=== PATIENT | male | born 1960 | race Caucasian/White ===

== ENCOUNTER 2017-07-23 17:14 | Emergency (ER) | payer OTHER, SELFPAY | END 2017-07-23 21:12 | disposition home or self-care (01) | PROVIDERS: Emergency Provider Internal Medicine; Family Provider Internal Medicine; PCP Internal Medicine; Visit Provider Internal Medicine | DX: R07.81 Pleurodynia (principal) | CPT/HCPCS: 71100; 71101; 93005; 93010; 99284 ==

== ENCOUNTER 2017-08-13 12:33 | Emergency (ER) | payer OTHER, SELFPAY ==
[2017-08-13 12:39] VITALS: BP 130/68; PULSE 93; RESP 14; TEMP 36.3; O2SAT 99
--- NOTE | 2017-08-13 12:51 | DI.RAD.S_ITS ---
PROCEDURE: XR CHEST 1V INDICATIONS: chest pain TECHNIQUE: One view of the chest was acquired. COMPARISON: 07/23/2017. FINDINGS: Surgical changes and devices: None. Artifact again noted overlying the left costophrenic angle. Lungs and pleura: No pleural effusions or pneumothorax. Lungs are clear. Mediastinum: Mediastinal contours appear normal. Heart size is normal. Bones and chest wall: No suspicious bony lesions. Focal radiodensities secondary to healing fractures of the left eighth, ninth and 10th ribs posteriorly. Old fracture deformity right sixth posterior rib. Overlying soft tissues appear unremarkable. IMPRESSION: 1. No acute cardiopulmonary abnormality. 2. Bilateral rib fracture deformities. Dictated by: Dominic Wise M.D. on 08/13/2017 at 13:15 Approved by: Dominic Wise M.D. on 08/13/2017 at 13:18
--- NOTE | 2017-08-13 12:52 | DI.US.S_ITS ---
PROCEDURE: US ABDOMEN COMPLETE INDICATIONS: EPIGASTRIC PAIN TECHNIQUE: Real-time scanning was performed of the abdominal and retroperitoneal organs, with image documentation. COMPARISON: None. FINDINGS: Liver: Liver is normal in size and homogeneous in echotexture. Gallbladder: Gallbladder is clear with normal wall thickness. Biliary ducts: Intrahepatic bile ducts are non-dilated. Extrahepatic bile duct caliber measures 3.1 mm. Normal is 6-7 mm or less in diameter, or 10 mm or less post-cholecystectomy. Pancreas: Pancreas is obscured by bowel gas Spleen: Spleen is normal in size and homogeneous in echotexture. Kidneys: Kidneys are normal in size and echotexture. Right kidney measures 10.1 cm long; left kidney measures 12.3 cm long. No hydronephrosis or nephrolithiasis. No solid masses. Aorta: Visualized aorta is normal in caliber at less than 3 cm. Iliacs: Iliac vessels are obscured IVC: Intrahepatic inferior vena cava is patent. Miscellaneous: No free abdominal fluid. IMPRESSION: 1. No acute findings to explain abdomen pain. 2. Pancreas and iliac vessels are obscured by bowel gas Dictated by: Dominic Wise M.D. on 08/13/2017 at 14:02 Approved by: Dominic Wise M.D. on 08/13/2017 at 14:04
[2017-08-13 13:01] LABS: Add Manual Diff / Slide Review NO; Basophils Percent Auto 0.3 % (0-2); Eosinophils Percent Auto 0.2 % (2-4); Hematocrit 42.2 % (41-53); Hemoglobin 14.7 g/dL (13.5-17.5); Lymphocytes Percent Auto 9.6 % (25-40); Mean Corpuscular HGB Conc 34.8 % (30-36); Mean Corpuscular Hemoglobin 33.4 PG (26-34); Mean Corpuscular Volume 95.8 fL (80-100); Monocytes Percent Auto 3.1 % (3-14); Neutrophils Absolute Auto 12200 /uL (3000-5900); Neutrophils Percent Auto 86.8 % (50-75); Platelet Count 313 X10^3/uL (150-400); Red Cell Distribution Width 12.9 % (11.6-14.8)
[2017-08-13 13:06] LABS: Alanine Aminotransferase 41 IU/L (21-72); Albumin 4.8 g/dL (3.5-5.0); Albumin Globulin Ratio 1.5 (1.0-2.8); Alkaline Phosphatase 93 U/L (38-126); Aspartate Aminotransferase 49 IU/L (17-59); BUN Creatinine Ratio 37.1 (6-22); Calcium 9.4 mg/dL (8.4-10.2); Creatine Kinase 100 U/L (55-170); Estimated Glomerular Filt Rate > 60.0 mL/min (>60); Globulin 3.1 g/dL (1.7-4.1); Glucose 145 mg/dL (70-100); Lipase 71 U/L (23-300); Sodium 131 mmol/L (137-145); Total Protein 7.9 g/dL (6.3-8.2)
[2017-08-13 13:10] LABS: HEMOLYSIS 56 (0-50)
[2017-08-13 13:11] LABS: Potassium 4.6 mmol/L (3.4-5.1)
[2017-08-13] MEDS: ASPIRIN 81 MG TAB 324 MG PO (13:14)
[2017-08-13] MEDS: SODIUM CHLORIDE 0.9% 1,000 ML 150 ML IV (13:15)
[2017-08-13] MEDS: PANTOPRAZOLE 40 MG VIAL IV (13:18)
[2017-08-13] MEDS: MAG HYDROX/ALUMINUM/SIMETH SUS 20 ML, LIDOCAINE VISCOUS 2% 15 ML PO (13:18)
[2017-08-13 13:20] LABS: Troponin I < 0.012 ng/mL (0.01-0.034)
[2017-08-13 13:22] LABS: CKMB % Relative Index 1.7 % (1.5-5.0); Creatine Kinase MB 1.69 ng/mL (<2.37)
[2017-08-13 14:37] VITALS: BP 124/63; PULSE 84; RESP 17; O2SAT 99
[2017-08-13 15:41] LABS: Troponin I < 0.012 ng/mL (0.01-0.034)
--- NOTE | 2017-08-13 15:56 | ED_ITS ---
HPI - Chest Pain General Chief Complaint: Chest Pain Stated Complaint: CHEST PAIN Time Seen by Provider: 08/13/17 12:41 Source: patient and family Mode of arrival: ambulatory Limitations: no limitations History of Present Illness HPI narrative: Patient presents to the emergency department today with a chief complaint of a recurrence of epigastric pain, not unlike his history of dyspepsia. He states his pain started while eating and is made worse by food or drink. It radiates to his back. He denies associated symptoms such as dizziness, weakness or lightheadedness. He has had no nausea or vomiting. MD complaint: chest pain Onset (ago): hour(s) Duration: improved Onset: after eating Pain location: epigastric Severity: mild Pain radiation: back Relieving factors: nothing Exacerbating factors: eating Treatments prior to arrival chest pain: none Related Data Home Medications Medication Instructions Recorded Confirmed No Known Home Medications 08/13/17 08/13/17 Allergies Allergy/AdvReac Type Severity Reaction Status Date / Time morphine [MORPHINE] Allergy Severe iv caused Verified 08/13/17 12:41 red line Review of Systems Review of Systems All systems reviewed & are unremarkable except as noted in HPI and below Constitutional Denies chills, Denies fever(s), Denies lethargy and Denies weakness Eyes Denies change in vision, Denies eye discharge, Denies irritation and Denies loss of vision Cardiovascular Reports chest pain, Denies irregular heart rhythm, Denies lightheadedness, Denies palpitations, Denies dyspnea, Denies dyspnea on exertion and Denies orthopnea Respiratory Denies cough, Denies dyspnea, Denies dyspnea on exertion and Denies wheezing Gastrointestinal Gastrointestinal: Reports abdominal pain, Denies change in bowel habits, Denies diarrhea, Denies nausea and Denies vomiting Genitourinary Denies hematuria, Denies flank pain, Denies urinary incontinence and Denies urinary urgency Integumentary/Breasts Denies pruritus, Denies erythema, Denies rash and Denies wounds Neurologic Denies loss of vision and Denies weakness Endocrine Denies palpitations Allergic/Immunologic Denies wheezing PFSH Social History Smoking Status: Never smoker Exam Const General: cooperative and well developed Nutritional Appearance: well nourished Orientation: alert, awake, oriented x3 and not confused Eyes General: appearance normal, both eyes and all related structures Eyelids: eyelids normal Conjunctivae: conjunctivae normal Sclera: sclerae normal Pupils: PERRL EOM: EOM intact bilaterally Neck Neck: normal visual inspection, trachea midline, No lymphadenopathy, No midline deformity and No JVD Lymphatic: No lymphedema Resp Effort & Inspection: normal respiratory effort, able to speak in complete sentences, no respiratory distress and no use of accessory muscles Auscultation: clear to auscultation bilaterally, no rales, no rhonchi and no wheezes GI Inspection: non-distended Palpation: soft, no hepatosplenomegaly, No guarding, No pulsatile mass and No tender Auscultation: normal bowel sounds Back/Spine/Pelvis Back: No CVA tenderness Cervical Spine: cervical ROM normal and No pain with cervical ROM Thoracic/Lumbar Spine: thoracic and lumbar spine normal to inspection Skin General: no rashes or lesions noted, No jaundice and No petechiae Neuro General: alert, awake and oriented x3 Other: Patient is a bit forgetful intends to relate multiple questions to his mother whom seems to be a very solid historian on his behalf Extrem General: full ROM, no clubbing, cyanosis or edema, no pedal edema and no calf tenderness MDM - Chest Pain Lab Data Result diagrams: 08/13/17 12:45 08/13/17 12:45 Lab Results 08/13/17 08/13/17 08/13/17 Range/Units 12:45 12:45 15:02 WBC 14.0 H (4.5-11.0) X10^3/uL RBC 4.40 L (4.5-5.9) X10^6/uL Hgb 14.7 (13.5-17.5) g/dL Hct 42.2 (41-53) % MCV 95.8 (80-100) fL MCH 33.4 (26-34) PG MCHC 34.8 (30-36) % RDW 12.9 (11.6-14.8) % Plt Count 313 (150-400) X10^3/uL Neut % (Auto) 86.8 H (50-75) % Lymph % (Auto) 9.6 L (25-40) % [place] % (Auto) 3.1 (3-14) % Eos % (Auto) 0.2 L (2-4) % Baso % (Auto) 0.3 (0-2) % Neut # (Auto) 44521 H (5642-4191) /uL Sodium 131 L (137-145) mmol/L Potassium 4.6 (3.4-5.1) mmol/L Chloride 92.0 L (98-107) mmol/L Carbon Dioxide 25.0 (22-32) mmol/L BUN 26.0 H (9-20) mg/dL Creatinine 0.70 (0.66-1.25) mg/dL Estimated GFR > 60.0 (>60) mL/min BUN/Creatinine Ratio 37.1 H (6-22) Glucose 145 H (70-100) mg/dL Calcium 9.4 (8.4-10.2) mg/dL Total Bilirubin 1.0 (0.2-1.3) mg/dL AST 49 (17-59) IU/L ALT 41 (21-72) IU/L Alkaline Phosphatase 93 (38-126) U/L Total Creatine Kinase 100 (55-170) U/L CK-MB (CK-2) 1.69 (<2.37) ng/mL CK-MB (CK-2) Rel Index 1.7 (1.5-5.0) % Troponin I < 0.012 < 0.012 (0.01-0.034) ng/mL Total Protein 7.9 (6.3-8.2) g/dL Albumin 4.8 (3.5-5.0) g/dL Globulin 3.1 (1.7-4.1) g/dL Albumin/Globulin Ratio 1.5 (1.0-2.8) Lipase 71 (23-300) U/L Course Orders Ordered: ED Orders 08/13/17 12:45 Complete Blood Count AUTO DIFF Stat Comprehensive Metabolic Panel Stat Lipase Stat Troponin with CK Cardiac Panel Stat 08/13/17 12:51 XR chest 1V Stat EKG-12 Lead Stat 08/13/17 12:52 US abdomen complete Stat 08/13/17 15:02 Troponin I Stat Sodium Chloride (Normal Saline 0.9%) 1,000 mls @ 150 mls/hr IV CONT DARREN Last Admin: 08/13/17 13:15 Dose: 150 mls/hr Discontinued Medications Aspirin (Aspirin Chew) 324 mg PO NOW ONE Stop: 08/13/17 12:52 Last Admin: 08/13/17 13:14 Dose: 324 mg Al Hydrox/Mg Hydrox/Simethicone 20 ml/ Lidocaine HCl 15 ml 0 ml PO NOW ONE Stop: 08/13/17 13:15 Last Admin: 08/13/17 13:18 Dose: 45 ml Pantoprazole Sodium (Protonix) 40 mg IV NOW ONE Stop: 08/13/17 13:15 Last Admin: 08/13/17 13:18 Dose: 40 mg Last Vital Signs Temp 97.4 F L 08/13/17 12:39 Pulse 84 08/13/17 14:37 Resp 17 08/13/17 14:37 BP 124/63 H 08/13/17 14:37 Pulse Ox 99 08/13/17 14:37 Discharge Plan Departure Patient Disposition: Home, Self-Care Clinical Impression: Atypical chest pain, Dyspepsia Instructions: DI for Atypical Chest Pain Prescriptions: No Action No Known Home Medications RF: 0
--- NOTE | 2017-08-13 16:06 | PC.NURSE ---
Pt ambulatory to bathroom and back to bed in stable gait. Pt in NAD and inform regarding the wait-lab results.
== END 2017-08-13 16:00 | disposition home or self-care (01) ==
PROVIDERS: Emergency Provider Emergency Medicine; Family Provider Internal Medicine; PCP Internal Medicine
DX: R07.89 Other chest pain (principal); R10.13 Epigastric pain
CPT/HCPCS: 71045; 76700; 80053; 82550; 82553; 83690; 84484; 85025; 93005; 93041; 96374; 99283; 99285; C9113

== ENCOUNTER 2017-09-28 13:37 | Emergency (ER) | payer OTHER, SELFPAY ==
[2017-09-28 14:00] VITALS: BP 124/83; PULSE 77; RESP 14; TEMP 36.8; O2SAT 100
--- NOTE | 2017-09-28 14:10 | ED.NEUROSD ---
HPI - Neuro Symptoms/Deficit <Franchesca Aquino PA-C - Last Filed: 09/28/17 23:06> General Chief Complaint: Neuro Symptoms/Deficit Stated Complaint: states cognitive issues Time Seen by Provider: 09/28/17 13:59 Source: patient, family and other (family elder law blasting entryman) Mode of arrival: ambulatory Limitations: other (memory impairment) History of Present Illness HPI Narrative: Bradly comes in today with his sister and his blasting entryman seeking advice today. He denies any acute medical problem today. He has had increasing difficulty with anxiety as his memory loss worsens, and his blasting entryman is concerned that this needs to be treated and they are unable to get an appointment with his PCP for some time. He has tended to turn to alcohol off an on and at times has violent or irrational behaviors when he drinks. He has been in rehab in the past but does not feeling need to go there now. He is not feeling acutely worse or suicidal today, and mainly came in to seek advice and talk about possible treatment options. He denies any specific complaints on systems review such as chest pain, dyspnea, abdominal complaints. On Anticoagulants: No Related Data Home Medications Medication Instructions Recorded Confirmed acetaminophen [Tylenol Extra 1,000 mg PO BID PRN 09/28/17 09/28/17 Strength] coconut oil 1 cap PO DAILY 09/28/17 09/28/17 omeprazole 40 mg PO DAILY 09/28/17 09/28/17 Allergies Allergy/AdvReac Type Severity Reaction Status Date / Time morphine [MORPHINE] Allergy Severe iv caused Verified 09/28/17 14:00 red line Review of Systems <Franchesca Aquino PA-C - Last Filed: 09/28/17 23:06> Review of Systems All systems reviewed & are unremarkable except as noted in HPI and below Exam <Franchesca Aquino PA-C - Last Filed: 09/28/17 23:06> Narrative Exam Narrative: GENERAL: Well-appearing patient is sitting comfortably NEUROLOGIC: Patient is alert with normal speech, gait, and coordination PSYCHIATRIC: Patient maintains good eye contact, appropriate and normal speech diamond Initial Vital Signs Initial Vital Signs: Vital Signs Temperature 98.3 F 09/28/17 14:00 Pulse Rate 77 09/28/17 14:00 Respiratory Rate 14 09/28/17 14:00 Blood Pressure 124/83 H 09/28/17 14:00 Pulse Oximetry 100 09/28/17 14:00 <Aelxandra Galan DO - Last Filed: 10/02/17 09:00> Initial Vital Signs Initial Vital Signs: Vital Signs Temperature 98.3 F 09/28/17 14:00 Pulse Rate 77 09/28/17 14:00 Respiratory Rate 14 09/28/17 14:00 Blood Pressure 124/83 H 09/28/17 14:00 Pulse Oximetry 100 09/28/17 14:00 Course <Franchesca Aquino PA-C - Last Filed: 09/28/17 23:06> Hospital Course: Reviewed with all that anxiety and depression frequently accompanied dementia, and that the symptoms may exacerbate or consist of cognitive impairment. Discussed very reasonable to treat, however should avoid acute anxiolytics such as benzodiazepines, and suggested talking with PCP about long-term treatment, i.e. with SSRI. I spoke with PCP office and he is able to getappointment on Sunday. All are agreeable with this plan. Orders Ordered: ED Orders 09/28/17 13:49 XR knee LT 3V Stat Vital Signs - 8 hr 09/28/17 14:00 Temperature 98.3 F Pulse Rate 77 Respiratory Rate 14 Blood Pressure 124/83 H Pulse Oximetry 100 <DO Shayne Lynch Last Filed: 10/02/17 09:00> Orders Ordered: ED Orders 09/28/17 13:49 XR knee LT 3V Stat Vital Signs - 8 hr 09/28/17 14:00 Temperature 98.3 F Pulse Rate 77 Respiratory Rate 14 Blood Pressure 124/83 H Pulse Oximetry 100 Discharge Plan Departure Patient Disposition: Home, Self-Care Clinical Impression: Anxiety, Memory loss or impairment Discharge Date/Time: 09/28/17 15:11 Interventions: ED Discharge Assessment Last Done: 09/28/17 15:10 Activity Restrictions/Additional Instructions: I have spoken with Kayla at Dr. Calderon's office and she has scheduled an appointment for you on Sunday, October 01, 3:15 check in at his [place] office. You should discuss with him the ongoing anxiety that you have as well as your concerns about drinking. I would recommend starting on a medication to help with the anxiety on a long-term basis such as Zoloft, which is in the Prozac family, and Dr. Calderon will likely have advice on which would be best for you. You can also talk with him about a referral for more testing with a psychiatrist or neurologist and whether alcohol treatment could be beneficial for you. Prescriptions: No Action omeprazole 40 mg capsule,delayed release(DR/EC) 40 mg PO DAILY RF: 0 acetaminophen [Tylenol Extra Strength] 500 mg Tablet 1,000 mg PO BID PRN (Reason: Pain, Moderate) RF: 0 coconut oil 1 cap PO DAILY RF: 0 Referrals: Jose Maria Calderon MD [Primary Care Provider] - <Alexandra Galan DO - Last Filed: 10/02/17 09:00> Cosign ED Attending Cosignature Attestation: I was immediately available in the department for consultation. Documentation has been reviewed. I agree with assessment and plan.
--- NOTE | 2017-09-28 14:49 | ED_ITS ---
HPI - Neuro Symptoms/Deficit <Franchesca Aquino PA-C - Last Filed: 09/28/17 23:06> General Chief Complaint: Neuro Symptoms/Deficit Stated Complaint: states cognitive issues Time Seen by Provider: 09/28/17 13:59 Source: patient, family and other (family elder law mergers and acquisitions attorney) Mode of arrival: ambulatory Limitations: other (memory impairment) History of Present Illness HPI Narrative: Bradly comes in today with his sister and his mergers and acquisitions attorney seeking advice today. He denies any acute medical problem today. He has had increasing difficulty with anxiety as his memory loss worsens, and his mergers and acquisitions attorney is concerned that this needs to be treated and they are unable to get an appointment with his PCP for some time. He has tended to turn to alcohol off an on and at times has violent or irrational behaviors when he drinks. He has been in rehab in the past but does not feeling need to go there now. He is not feeling acutely worse or suicidal today, and mainly came in to seek advice and talk about possible treatment options. He denies any specific complaints on systems review such as chest pain, dyspnea, abdominal complaints. On Anticoagulants: No Related Data Home Medications Medication Instructions Recorded Confirmed acetaminophen [Tylenol Extra 1,000 mg PO BID PRN 09/28/17 09/28/17 Strength] coconut oil 1 cap PO DAILY 09/28/17 09/28/17 omeprazole 40 mg PO DAILY 09/28/17 09/28/17 Allergies Allergy/AdvReac Type Severity Reaction Status Date / Time morphine [MORPHINE] Allergy Severe iv caused Verified 09/28/17 14:00 red line Review of Systems <Franchesca Aquino PA-C - Last Filed: 09/28/17 23:06> Review of Systems All systems reviewed & are unremarkable except as noted in HPI and below Exam <Franchesca Aquino PA-C - Last Filed: 09/28/17 23:06> Narrative Exam Narrative: GENERAL: Well-appearing patient is sitting comfortably NEUROLOGIC: Patient is alert with normal speech, gait, and coordination PSYCHIATRIC: Patient maintains good eye contact, appropriate and normal speech diamond Initial Vital Signs Initial Vital Signs: Vital Signs Temperature 98.3 F 09/28/17 14:00 Pulse Rate 77 09/28/17 14:00 Respiratory Rate 14 09/28/17 14:00 Blood Pressure 124/83 H 09/28/17 14:00 Pulse Oximetry 100 09/28/17 14:00 <Alexandra Galan DO - Last Filed: 10/02/17 09:00> Initial Vital Signs Initial Vital Signs: Vital Signs Temperature 98.3 F 09/28/17 14:00 Pulse Rate 77 09/28/17 14:00 Respiratory Rate 14 09/28/17 14:00 Blood Pressure 124/83 H 09/28/17 14:00 Pulse Oximetry 100 09/28/17 14:00 Course <Franchesca Aquino PA-C - Last Filed: 09/28/17 23:06> Hospital Course: Reviewed with all that anxiety and depression frequently accompanied dementia, and that the symptoms may exacerbate or consist of cognitive impairment. Discussed very reasonable to treat, however should avoid acute anxiolytics such as benzodiazepines, and suggested talking with PCP about long-term treatment, i.e. with SSRI. I spoke with PCP office and he is able to getappointment on Sunday. All are agreeable with this plan. Orders Ordered: ED Orders 09/28/17 13:49 XR knee LT 3V Stat Vital Signs - 8 hr 09/28/17 14:00 Temperature 98.3 F Pulse Rate 77 Respiratory Rate 14 Blood Pressure 124/83 H Pulse Oximetry 100 <DO Shayne Lynch Last Filed: 10/02/17 09:00> Orders Ordered: ED Orders 09/28/17 13:49 XR knee LT 3V Stat Vital Signs - 8 hr 09/28/17 14:00 Temperature 98.3 F Pulse Rate 77 Respiratory Rate 14 Blood Pressure 124/83 H Pulse Oximetry 100 Discharge Plan Departure Patient Disposition: Home, Self-Care Clinical Impression: Anxiety, Memory loss or impairment Discharge Date/Time: 09/28/17 15:11 Interventions: ED Discharge Assessment Last Done: 09/28/17 15:10 Activity Restrictions/Additional Instructions: I have spoken with Kayla at Dr. Calderon's office and she has scheduled an appointment for you on Sunday, October 01, 3:15 check in at his [place] office. You should discuss with him the ongoing anxiety that you have as well as your concerns about drinking. I would recommend starting on a medication to help with the anxiety on a long-term basis such as Zoloft, which is in the Prozac family, and Dr. Calderon will likely have advice on which would be best for you. You can also talk with him about a referral for more testing with a psychiatrist or neurologist and whether alcohol treatment could be beneficial for you. Prescriptions: No Action omeprazole 40 mg capsule,delayed release(DR/EC) 40 mg PO DAILY RF: 0 acetaminophen [Tylenol Extra Strength] 500 mg Tablet 1,000 mg PO BID PRN (Reason: Pain, Moderate) RF: 0 coconut oil 1 cap PO DAILY RF: 0 Referrals: Jose Maria Calderon MD [Primary Care Provider] - <Alexandra Galan DO - Last Filed: 10/02/17 09:00> Cosign ED Attending Cosignature Attestation: I was immediately available in the department for consultation. Documentation has been reviewed. I agree with assessment and plan.
== END 2017-09-28 15:11 | disposition home or self-care (01) ==
PROVIDERS: Emergency Provider Internal Medicine; Family Provider Internal Medicine; PCP Internal Medicine
DX: F41.9 Anxiety disorder, unspecified (principal); R41.3 Other amnesia
CPT/HCPCS: 99283

== ENCOUNTER 2017-10-13 13:43 | Inpatient (IN) | payer OTHER, SELFPAY ==
[2017-10-13] VITALS (12 sets, daily range): BP systolic 126–145; BP diastolic 74–90; PULSE 62–119; RESP 13–21; TEMP 36.1–37.6; O2SAT 95–100; BMI 23.6
--- NOTE | 2017-10-13 14:22 | DI.CT.S_ITS ---
PROCEDURE: CT HEAD/BRAIN WO CON INDICATIONS: Altered mental status found down TECHNIQUE: Noncontrast 4.5 mm thick angled axial sections acquired from the foramen magnum to the vertex, with coronal and sagittal reformats. For radiation dose reduction, the following was used: automated exposure control, adjustment of mA and/or kV according to patient size. COMPARISON: None. FINDINGS: Image quality: Limited by motion artifact.. CSF spaces: Basal cisterns are patent. Bilateral chronic small subdural hygromas are noted. The ventricles are symmetric in size and shape. Brain: No intracranial bleeds or masses. There is cerebral volume loss for age, with resultant ventricular and sulcal prominence. There are periventricular and deep white matter chronic small vessel ischemic changes. There is intracranial internal carotid artery atherosclerosis. Skull and face: Calvarium and visualized facial bones appear intact, without suspicious lesions. Possible right frontal scalp swelling Sinuses: Visualized sinuses and mastoids are clear. IMPRESSION: Bilateral chronic appearing small subdural hygromas. No acute intracranial process. Possible right frontal scalp swelling Dictated by: Benedicto Horner M.D. on 10/13/2017 at 15:30 Approved by: Benedicto Horner M.D. on 10/13/2017 at 15:33
--- NOTE | 2017-10-13 14:28 | ED.ALCOHOL ---
HPI - Alcohol General Chief Complaint: Toxicology Problem Stated Complaint: found on ground, etoh on board Time Seen by Provider: 10/13/17 14:04 Source: family and EMS Mode of arrival: EMS Limitations: no limitations History of Present Illness HPI narrative: Patient arrived by EMS after they were called to the patient's house because he was found down. Patient's family is at bedside. They state that they have not seen the patient in 2 days. They state that they were getting worried about him so they called the police for a welfare check. It was reported that they could see in the front window of the house and found the patient lying on the ground. They entered the home an EMS was called. It was reported that they found a empty bottle of vodka in the patient's room. Unknown trauma. There were no other reports of pill bottles or any other abnormalities in the home. Patient's sister and mother are at bedside. They state that the patient goes through episodes where he binges on alcohol. They were fearing that for the past couple days he has been drinking alcohol. The reports of the patient having dementia. They state that the patient has been in alcohol rehab in the past. Related Data Home Medications Medication Instructions Recorded Confirmed acetaminophen [Tylenol Extra 1,000 mg PO BID PRN 09/28/17 09/28/17 Strength] coconut oil 1 cap PO DAILY 09/28/17 09/28/17 omeprazole 40 mg PO DAILY 09/28/17 09/28/17 Allergies Allergy/AdvReac Type Severity Reaction Status Date / Time morphine [MORPHINE] Allergy Severe iv caused Verified 10/13/17 13:51 red line Review of Systems Review of Systems unobtainable due to mental condition and unobtainable due to mental status [facility] Medical History Alcohol abuse (Chronic) Dementia (Chronic) GERD (gastroesophageal reflux disease) (Chronic) Surgical History Status post lateral meniscus repair (Chronic) H/O inguinal hernia repair (Resolved) Social History Smoking Status: Former smoker alcohol intake: current substance use type: does not use Exam Initial Vital Signs Initial Vital Signs: Vital Signs Temperature 97.0 F L 10/13/17 13:51 Pulse Rate 84 10/13/17 13:51 Respiratory Rate 14 10/13/17 13:51 Blood Pressure 136/77 H 10/13/17 13:51 Pulse Oximetry 96 10/13/17 13:51 Const General: No cooperative, well developed and No acute distress HENMT Head: normal to inspection and normocephalic Resp Effort & Inspection: normal respiratory effort Auscultation: clear to auscultation bilaterally Cardio Rate: regular rate Rhythm: regular rhythm Pulses: radial pulses present GI Inspection: non-distended Palpation: soft Back/Spine/Pelvis Back: normal to inspection Skin Lesions: no lesions Rashes: no rashes Neuro Other: Patient is arousable. Does not follow commands Stated that he did not know the year Mumbled when asked where he was currently located Patient did move all 4 extremities with purpose however does not follow commands Extrem Other: No gross deformities Psych Appearance: well kempt Other: Not cooperative with exam Course Orders Ordered: ED Orders 10/13/17 14:12 Urine Drug Screen, Rapid Stat 10/13/17 14:22 CT head/brain wo con Stat 10/13/17 14:40 Acetaminophen Stat Complete Blood Count AUTO DIFF Stat Comprehensive Metabolic Panel Stat Creatine Kinase Stat Ethanol (ETOH) Stat Lactate (Lactic Acid) Stat Lipase Stat Partial Thromboplastin Time Stat Prothrombin Time INR Stat Salicylate Stat 10/13/17 18:00 Ammonia (NH3) Stat Sodium Chloride (Normal Saline 0.9%) 1,000 mls @ 150 mls/hr IV CONT DARREN Last Infusion: 10/13/17 15:46 Dose: 0 mls/hr Admin: 10/13/17 15:07 Dose: 150 mls/hr Discontinued Medications Thiamine HCl (Vitamin B-1) 100 mg PO NOW ONE Stop: 10/13/17 18:23 Vital Signs - 8 hr 10/13/17 13:51 10/13/17 15:14 10/13/17 16:04 Temperature 97.0 F L Pulse Rate 84 92 H 72 Respiratory Rate 14 16 17 Blood Pressure 136/77 H Blood Pressure [Left Arm] 130/90 H 130/90 H Pulse Oximetry 96 100 96 10/13/17 16:40 10/13/17 17:21 10/13/17 18:13 Temperature Pulse Rate 106 H 62 64 Respiratory Rate 21 17 Blood Pressure Blood Pressure [Left Arm] 126/75 H 145/78 H 134/75 H Pulse Oximetry 96 10/13/17 19:16 Temperature Pulse Rate 119 H Respiratory Rate 16 Blood Pressure Blood Pressure [Left Arm] 126/81 H Pulse Oximetry MDM - Alcohol Medical Records Attestation: I reviewed the patient's medical records. Lab Data Attestation: I reviewed the patient's lab results. Result diagrams: 10/13/17 14:40 10/13/17 14:40 Labs: Lab Results 10/13/17 10/13/17 10/13/17 Range/Units 14:40 14:40 14:40 WBC 12.2 H (4.5-11.0) X10^3/uL RBC 4.61 (4.5-5.9) X10^6/uL Hgb 15.1 (13.5-17.5) g/dL Hct 44.2 (41-53) % MCV 95.9 (80-100) fL MCH 32.8 (26-34) PG MCHC 34.3 (30-36) % RDW 12.4 (11.6-14.8) % Plt Count 234 (150-400) X10^3/uL Neut % (Auto) 88.2 H (50-75) % Lymph % (Auto) 4.0 L (25-40) % [place] % (Auto) 7.7 (3-14) % Eos % (Auto) 0.0 L (2-4) % Baso % (Auto) 0.1 (0-2) % Neut # (Auto) 92441 H (7899-2587) /uL PT 11.0 (10.1-12.7) SECONDS INR 1.0 (0.9-1.3) APTT 17 L (26.4-36.2) SECONDS Sodium 143 (137-145) mmol/L Potassium 4.0 (3.4-5.1) mmol/L Chloride 103 (98-107) mmol/L Carbon Dioxide 29 (22-32) mmol/L BUN 22 H (9-20) mg/dL Creatinine 0.80 (0.66-1.25) mg/dL Estimated GFR > 60.0 (>60) mL/min BUN/Creatinine Ratio 27.5 H (6-22) Glucose 142 H (70-100) mg/dL Lactate (0.7-2.1) mmol/L Calcium 10.0 (8.4-10.2) mg/dL Total Bilirubin 1.2 (0.2-1.3) mg/dL AST 83 H (17-59) IU/L ALT 53 (21-72) IU/L Alkaline Phosphatase 66 (38-126) U/L Ammonia (9-30) umol/L Total Creatine Kinase 2398 H (55-170) U/L Total Protein 8.1 (6.3-8.2) g/dL Albumin 4.9 (3.5-5.0) g/dL Globulin 3.2 (1.7-4.1) g/dL Albumin/Globulin Ratio 1.5 (1.0-2.8) Lipase 71 (23-300) U/L Salicylates (<20) mg/dL Acetaminophen (10-30) ug/mL Ethyl Alcohol < 10 mg/dL 10/13/17 10/13/17 10/13/17 Range/Units 14:40 14:40 18:00 WBC (4.5-11.0) X10^3/uL RBC (4.5-5.9) X10^6/uL Hgb (13.5-17.5) g/dL Hct (41-53) % MCV (80-100) fL MCH (26-34) PG MCHC (30-36) % RDW (11.6-14.8) % Plt Count (150-400) X10^3/uL Neut % (Auto) (50-75) % Lymph % (Auto) (25-40) % [place] % (Auto) (3-14) % Eos % (Auto) (2-4) % Baso % (Auto) (0-2) % Neut # (Auto) (1514-7731) /uL PT (10.1-12.7) SECONDS INR (0.9-1.3) APTT (26.4-36.2) SECONDS Sodium (137-145) mmol/L Potassium (3.4-5.1) mmol/L Chloride (98-107) mmol/L Carbon Dioxide (22-32) mmol/L BUN (9-20) mg/dL Creatinine (0.66-1.25) mg/dL Estimated GFR (>60) mL/min BUN/Creatinine Ratio (6-22) Glucose (70-100) mg/dL Lactate 1.6 (0.7-2.1) mmol/L Calcium (8.4-10.2) mg/dL Total Bilirubin (0.2-1.3) mg/dL AST (17-59) IU/L ALT (21-72) IU/L Alkaline Phosphatase (38-126) U/L Ammonia < 9.0 L (9-30) umol/L Total Creatine Kinase (55-170) U/L Total Protein (6.3-8.2) g/dL Albumin (3.5-5.0) g/dL Globulin (1.7-4.1) g/dL Albumin/Globulin Ratio (1.0-2.8) Lipase (23-300) U/L Salicylates < 1.0 (<20) mg/dL Acetaminophen < 10 L (10-30) ug/mL Ethyl Alcohol mg/dL Imaging Data CT scan - head: Radiologist's impression: PROCEDURE: CT HEAD/BRAIN WO CON INDICATIONS: Altered mental status found down TECHNIQUE: Noncontrast 4.5 mm thick angled axial sections acquired from the foramen magnum to the vertex, with coronal and sagittal reformats. For radiation dose reduction, the following was used: automated exposure control, adjustment of mA and/or kV according to patient size. COMPARISON: None. FINDINGS: Image quality: Limited by motion artifact.. CSF spaces: Basal cisterns are patent. Bilateral chronic small subdural hygromas are noted. The ventricles are symmetric in size and shape. Brain: No intracranial bleeds or masses. There is cerebral volume loss for age, with resultant ventricular and sulcal prominence. There are periventricular and deep white matter chronic small vessel ischemic changes. There is intracranial internal carotid artery atherosclerosis. Skull and face: Calvarium and visualized facial bones appear intact, without suspicious lesions. Possible right frontal scalp swelling Sinuses: Visualized sinuses and mastoids are clear. IMPRESSION: Bilateral chronic appearing small subdural hygromas. No acute intracranial process. Possible right frontal scalp swelling Dictated by: Benedicto Horner M.D. on 10/13/2017 at 15:30 Approved by: Benedicto Horner M.D. on 10/13/2017 at 15:33 [facility] Narrative Medical decision making narrative: Patient's head CT was negative. He has no signs of trauma externally. Difficult to obtain any exam secondary to the patient's willingness/ability to cooperate. Head CT shows no signs of acute fracture. Consider diagnosis such as withdrawal seizures and the patient being postictal however patient is somewhat arousable and does move all 4 extremities with purpose. Also considered Wernicke Encephalopathy patient was given thiamine here in the emergency department, alcohol level was negative. Still waiting for a urine drug screen, I do not believe that the patient is currently in alcohol withdrawal. He has a normal heart rate. Ammonia level unremarkable. LFTs unremarkable. Patient has no signs of sepsis. He pulled out his IV while he was here in the ER. Had a long discussion with the patient's family were at bedside. There appears to be a long history of alcohol abuse in the patient however given his normal alcohol here in the emergency department I do not feel that his altered mental status is because of this. The patient's sister and mother were at bedside state that the patient is not at his normal mental status. Multiple nurses here in the emergency department who has seen this patient in the past state he has not had his normal mental status. Considered other types of toxic ingestions however unremarkable labs and no reports of any pill bottles found at the scene. Had a long discussion with the family regarding his symptoms. Discussed the case with Dr. Gates with Internal Medicine who will admit the patient for continued observation and treatment. Family at bedside expressed understanding and agreement with this plan. Discharge Plan Departure Patient Disposition: Admitted As Inpatient Clinical Impression: Altered mental status Discharge Date/Time: 10/13/17 18:39 Admit Date/Time: 10/13/17 18:39 Admit Provider: Elia Gates V
[2017-10-13 14:53] LABS: Add Manual Diff / Slide Review NO; Basophils Percent Auto 0.1 % (0-2); Hematocrit 44.2 % (41-53); Hemoglobin 15.1 g/dL (13.5-17.5); Mean Corpuscular HGB Conc 34.3 % (30-36); Mean Corpuscular Hemoglobin 32.8 PG (26-34); Mean Corpuscular Volume 95.9 fL (80-100); Monocytes Percent Auto 7.7 % (3-14); Neutrophils Absolute Auto 10800 /uL (3000-5900); Neutrophils Percent Auto 88.2 % (50-75); Platelet Count 234 X10^3/uL (150-400); Red Blood Cell Count 4.61 X10^6/uL (4.5-5.9); Red Cell Distribution Width 12.4 % (11.6-14.8); White Blood Cell Count 12.2 X10^3/uL (4.5-11.0)
[2017-10-13] MEDS: SODIUM CHLORIDE 0.9% 1,000 ML 150 ML IV (15:07)
[2017-10-13 15:12] LABS: Lactate (Lactic Acid) 1.6 mmol/L (0.7-2.1)
[2017-10-13 15:13] LABS: Alanine Aminotransferase 53 IU/L (21-72); Albumin 4.9 g/dL (3.5-5.0); Albumin Globulin Ratio 1.5 (1.0-2.8); Alkaline Phosphatase 66 U/L (38-126); Aspartate Aminotransferase 83 IU/L (17-59); BUN Creatinine Ratio 27.5 (6-22); Bilirubin Total 1.2 mg/dL (0.2-1.3); Blood Urea Nitrogen 22 mg/dL (9-20); Carbon Dioxide 29 mmol/L (22-32); Chloride 103 mmol/L (98-107); Estimated Glomerular Filt Rate > 60.0 mL/min (>60); Ethanol (ETOH) < 10 mg/dL; Globulin 3.2 g/dL (1.7-4.1); Glucose 142 mg/dL (70-100); Lipase 71 U/L (23-300); Sodium 143 mmol/L (137-145); Total Protein 8.1 g/dL (6.3-8.2)
[2017-10-13 15:18] LABS: Acetaminophen < 10 ug/mL (10-30)
[2017-10-13 15:20] LABS: Creatine Kinase 2398 U/L (55-170); HEMOLYSIS 21 (0-50)
[2017-10-13 15:23] LABS: Salicylate < 1.0 mg/dL (<20)
[2017-10-13 15:31] LABS: PTT Partial Thromboplastin Tim 17 SECONDS (26.4-36.2)
--- NOTE | 2017-10-13 15:34 | PC.NURSE ---
Pt removed IV at this time. Provider aware and ok keep IV out at this time.
[2017-10-13 18:20] LABS: Ammonia (NH3) < 9.0 umol/L (9-30)
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
[2017-10-13] MEDS: THIAMINE 100 MG TABLET PO (19:31)
[2017-10-13] MEDS: LORazepam 2 MG/ML SYRINGE 1 MG IV (19:33)
[2017-10-13] MEDS: LORazepam 2 MG/ML SYRINGE IV ×2 (20:25→23:39)
[2017-10-13] MEDS: SODIUM CHLORIDE 0.9% 1,000 ML 100 ML IV (20:26)
--- NOTE | 2017-10-13 20:56 | PC.NURSE ---
2030- Patient thrashing in bed. Patient unable to be redirected. Heart rate up to 125. Patient yelling and hitting at caregivers. Patient experiences significant pain when he turns onto the right hip. There is a large contusion on this hip. Patient does not follow direction, does not know where he is and does not respond to his name. Patient medicated for agitation. will monitor.
[2017-10-14] VITALS (8 sets, daily range): BP systolic 139–161; BP diastolic 69–98; PULSE 64–83; RESP 14–20; TEMP 37.2–37.6; O2SAT 93–100
[2017-10-14] MEDS: LORazepam 2 MG/ML SYRINGE IV ×2 (02:17→05:27)
[2017-10-14 05:27] LABS: Add Manual Diff / Slide Review NO; Basophils Percent Auto 0.2 % (0-2); Eosinophils Percent Auto 0.1 % (2-4); Hematocrit 42.9 % (41-53); Hemoglobin 14.8 g/dL (13.5-17.5); Lymphocytes Percent Auto 8.2 % (25-40); Mean Corpuscular HGB Conc 34.5 % (30-36); Mean Corpuscular Hemoglobin 33.3 PG (26-34); Mean Corpuscular Volume 96.5 fL (80-100); Monocytes Percent Auto 8.3 % (3-14); Neutrophils Absolute Auto 9300 /uL (3000-5900); Neutrophils Percent Auto 83.2 % (50-75); Platelet Count 216 X10^3/uL (150-400); Red Blood Cell Count 4.45 X10^6/uL (4.5-5.9); Red Cell Distribution Width 12.8 % (11.6-14.8); White Blood Cell Count 11.2 X10^3/uL (4.5-11.0)
[2017-10-14] MEDS: SODIUM CHLORIDE 0.9% 1,000 ML 100 ML IV ×2 (05:40→15:36)
[2017-10-14 05:41] LABS: Blood Urea Nitrogen 21 mg/dL (9-20); Calcium 9.6 mg/dL (8.4-10.2); Carbon Dioxide 32 mmol/L (22-32); Chloride 106 mmol/L (98-107); Estimated Glomerular Filt Rate > 60.0 mL/min (>60); Glucose 127 mg/dL (70-100); HEMOLYSIS < 15 (0-50); Potassium 3.9 mmol/L (3.4-5.1); Sodium 145 mmol/L (137-145)
--- NOTE | 2017-10-14 05:57 | PC.NURSE ---
Intermittant agitation with CIWA 6-14. Ativan per protocol. Disoriented and impulsive. Non-verbal with the exception of expletives that don't appear to be directed at any person but spoken randomly during movement. GAGE, unable to follow commands. Incontinent of urine.
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
--- NOTE | 2017-10-14 10:23 | PT.IPTN ---
Physical Therapy Treatment Note M3 PT-IP Subjective Start: 10/14/17 10:21 Freq: Status: Active Protocol: Document 10/14/17 10:22 [facility] (Rec: 10/14/17 10:23 [facility] [id number]) Subjective Physical Therapy Visit Type Notes pt not appropriate for PT evaluation this a.m., not following commands and is not compliant. Will attempt later this date.
[2017-10-14 10:35] LABS: Procalcitonin 0.07 ng/mL (<0.5)
[2017-10-14] MEDS: ENOXAPARIN 40 MG/0.4 ML SYRINGE SUBCUT (11:32)
--- NOTE | 2017-10-14 13:00 | PT.IPTN ---
Physical Therapy Treatment Note M3 PT-IP Subjective Start: 10/14/17 10:21 Freq: Status: Active Protocol: Document 10/14/17 13:00 [facility] (Rec: 10/14/17 15:22 [facility] [id number]) Subjective Physical Therapy Visit Type Type Cancellation Visit Start Time 13:00 Visit Stop Time 13:01 Notes Pt not appropriate for PT evaluation at this time. Unable to follow simple commands, moving extremities but not purposefully. Will attempt tomorrow.
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
--- NOTE | 2017-10-14 13:58 | PC.NURSE ---
Pt has been somnolent most of the day with only brief periods of agitation that occur mostly during nursing care. Speech is slurred/mumbled and incomprehensible aside from a few expletives. He does make frequent position changes independently. He has been incontinent of urine. Consistent reorientation provided. Did ask patient if he was having pain at noon. Pt stated No with clear speech. Supportive family at bedside.
--- NOTE | 2017-10-14 18:40 | PC.NURSE ---
Addendum entered by Madison Mix R.N. 10/14/17 21:23: 2115 - Pt continues to intermittently call out, mostly expletives. Other wording is mumbled and incomprehensible. During care pt did open his eyes, make eye contact and state get the fuck out. Attempt to reorient unsuccessful. Pt then found pulling off seizure pads and biting them. Pads returned to bed rail and secured. Following periods of activity, pt returns to sleep. Agitation at it's height with incontinence and incontinent care. Original Note: Pt with increased agitation during care. Calling out expletives clearly. During this time pt keeping eyes closed. Left eye with drainage. Attempt care, pt resistive. Brief, gown and partial linen change. Pt pulling at and pushing staff away. Repeatedly puts legs over the side rail. Seizure pads in place. Pt returns to resting with only intermittent calling out following the completion of care. Bed alarm on. Monitor.
[2017-10-15] VITALS (9 sets, daily range): BP systolic 148–160; BP diastolic 56–96; PULSE 68–80; RESP 16–22; TEMP 36.7–37.3; O2SAT 94–97
[2017-10-15] MEDS: SODIUM CHLORIDE 0.9% 1,000 ML 100 ML IV ×3 (01:34→22:55)
[2017-10-15] MEDS: LORazepam 2 MG/ML SYRINGE 1 MG IV ×2 (03:31→21:18)
--- NOTE | 2017-10-15 03:51 | PC.NURSE ---
[id number] Pt frequently calling out and yelling profanity. Pt given incontinent care every one hour to hour and one half. Pt pulling on IV line and tilted IV pump into side rail. Pt noted to be picking in air and talking to someone with no one present in room. CIWA 19. Medicated with Ativan 1 mg. Pt opened eyes and made eye contact one time. Pt squeezing staffs hands aggressively during manoj care. Pt has equal strength in bilateral hands.
[2017-10-15 05:12] LABS: Add Manual Diff / Slide Review NO; Basophils Percent Auto 0.4 % (0-2); Eosinophils Percent Auto 0.9 % (2-4); Hematocrit 41.9 % (41-53); Hemoglobin 14.6 g/dL (13.5-17.5); Mean Corpuscular HGB Conc 34.9 % (30-36); Mean Corpuscular Hemoglobin 33.4 PG (26-34); Mean Corpuscular Volume 95.6 fL (80-100); Monocytes Percent Auto 7.4 % (3-14); Neutrophils Absolute Auto 6700 /uL (3000-5900); Neutrophils Percent Auto 79.3 % (50-75); Platelet Count 187 X10^3/uL (150-400); Red Blood Cell Count 4.38 X10^6/uL (4.5-5.9); Red Cell Distribution Width 12.2 % (11.6-14.8); White Blood Cell Count 8.4 X10^3/uL (4.5-11.0)
[2017-10-15 05:25] LABS: BUN Creatinine Ratio 24.3 (6-22); Blood Urea Nitrogen 17 mg/dL (9-20); Calcium 8.9 mg/dL (8.4-10.2); Carbon Dioxide 29 mmol/L (22-32); Chloride 106 mmol/L (98-107); Estimated Glomerular Filt Rate > 60.0 mL/min (>60); Glucose 111 mg/dL (70-100); HEMOLYSIS < 15 (0-50); Potassium 3.6 mmol/L (3.4-5.1); Sodium 142 mmol/L (137-145)
--- NOTE | 2017-10-15 06:20 | PC.NURSE ---
0600 Pt answering some questions. Occasionally follows directions. Continues with occasional profanity. Repositioning self from side to side. L eye with yellow matter. Cleansed with warm water and wash cloth. Pt agreed to limited oral care. Pt denies pain or headache. No tremors noted. Pt more cooperative with manoj care and turning when reassured that he would not fall with turning from side to side.
--- NOTE | 2017-10-15 09:14 | PT.IPTN ---
Physical Therapy Treatment Note M3 PT-IP Subjective Start: 10/14/17 10:21 Freq: Status: Active Protocol: Document 10/15/17 08:29 [facility] (Rec: 10/15/17 09:14 [facility] [id number]) Subjective Physical Therapy Visit Type Type Cancellation Notes Per RN, pt is incoherent, not following commands, and just pulled out his IV. PT will hold eval for now and try again later.
--- NOTE | 2017-10-15 11:53 | PC.NURSE ---
PT MOSTLY NON-VERBAL AND UNABLE TO FOLLOW ANY COMMANDS OF STAFF- FEW CURSE WORDS WHILE TURNING SELF IN BED, NOT NECESSARILY TOWARD ANY PERSONS IN PARTICULAR- HIS MOTHER AND SISTER ARE PRESENT AND THEY SEEM VERY CONCERNED AND DOWNRIGHT ANXIOUS ABOUT PT.- MOTHER HAS COME FROM ROOM SEVERAL TIMES TO LET ME KNOW THAT HE IS HUNGRY AND NEEDS TO EAT- ATTEMPTED TO GIVE ICE H20 ( UNABLE TO USE STRAW- BITES THE STRAW) ASKED FOR CRACKER- ATTEMPTED SAME AND HE WAS UNABLE TO TO CHEW OR SWALLOW AND THEN SPIT OUT TINY CRUMBS THAT WERE IN HIS MOUTH- PT STILL TOO WEAK AND LETHARGIC TO SAFELY TAKE PO
[2017-10-15] MEDS: ENOXAPARIN 40 MG/0.4 ML SYRINGE SUBCUT (13:05)
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
--- NOTE | 2017-10-15 16:10 | CM.DPNOTE ---
DCP/PUBLIC RELATIONS COORDINATOR Note: Reviewed chart. Spoke with MOISES/Terri Lo. this AM she reports that patient continues to be medicated and unable to interview. Terri reports that MD changed patient to inpatient status today. PUBLIC RELATIONS COORDINATOR has not confirmed with UR/RN. Will check in AM rounds on 10-16-17. Met briefly with patient's Mother Poornima and sister at bedside explained role. Copy of DPOA paperwork provided for patient's record. DPOA work confirms that patient's mother is DPOA. At this time d/c plan unknown because PUBLIC RELATIONS COORDINATOR unable to do assessment secondary to patient's medical status. White board in patient' room updated and notified family that CM team will continue to follow closely. P: Pending. BALAJI Crook
--- NOTE | 2017-10-15 19:50 | PC.NURSE ---
Addendum entered by Madison Mix R.N. 10/15/17 21:19: Pt with increased agitation. Hitting and kicking at staff. Attempted to address needs, provided water, offered urinal. Unable to redirect or reorient pt. Pt grabbing and digging nails into staff. 3 person assist back into bed. Ativan given. Original Note: Pt continues to intermittently call out, mostly expletives. Increasing agitation with care. Grabbing, pulling and pushing at staff. Pt is unable to follow commands. Seizure pads in place, frequently inc of urine, bed alarm on.
[2017-10-16] VITALS (9 sets, daily range): BP systolic 137–162; BP diastolic 73–96; PULSE 59–86; RESP 16–20; TEMP 36.4–37.2; O2SAT 95–98
[2017-10-16] MEDS: LORazepam 2 MG/ML SYRINGE 1 MG IV (00:49)
[2017-10-16] MEDS: LORazepam 2 MG/ML SYRINGE IV (04:31)
[2017-10-16] MEDS: SODIUM CHLORIDE 0.9% 1,000 ML 100 ML IV ×2 (09:15→19:40)
[2017-10-16] MEDS: ENOXAPARIN 40 MG/0.4 ML SYRINGE SUBCUT (09:23)
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
--- NOTE | 2017-10-16 11:15 | SLP.IPNOTE ---
ST order received and on hold due to patient's noncompliance. Chart review complete. Report from Neurologist Dr. Tim Hudson states patient scored a 14/30 on the Mini Mental Status Exam on April 24, 2016. At that time, he reports patient was not oriented to date, was not able to complete serial subtraction, and recalled 0/3 objects for short term recall. He was able to follow 3 step commands. Will attempt evaluation tomorrow.
--- NOTE | 2017-10-16 11:46 | PC.NURSE ---
ATTEMPTED TO SIT UP ON EDGE OF BED WITH 2 STAFF MEMBERS AND PHYSICAL THERAPY - PT IS UNABLE TO FOLLOW COMMANDS AND EASILY BECOMES COMBATIVE WITH STAFF BY ATTEMPTING TO TAKE A SWING OR REPOSSESSOR AND TWIST STAFF MEMBERS ARMS- EVEN DOES THIS TO HIS OWN EXTREMITIES VERY FORCIBLY, INCONT OF URINE AND SMEAR OF STOOL- CHANGED AFTER EACH VOID- HE IS UNABLE TO TAKE SIPS HE BITES THE STRAW OR SPITS THE LIQUID OUT- CURSE WORDS SPEWED OFTEN FROM PT TOWARD STAFF AND FAMILY- UPDATE TO FAMILY WITH MUCH DISTRESS NOTED FROM ELDERLY MOTHER ACCOMPANIED BY DAUGHTER, DANTE
--- NOTE | 2017-10-16 12:30 | PT.IPTN ---
Current Diagnoses Metabolic encephalopathy (10/15/17) Physical Therapy Treatment Note M3 PT-IP Subjective Start: 10/14/17 10:21 Freq: Status: Active Protocol: Document 10/16/17 12:24 AB (Rec: 10/16/17 12:30 AB [id number]) Subjective Physical Therapy Visit Type Notes checked pt and attempted eval with nurse and NAC in room. pt inconsistent with answering questions and unable to make eye contact. pt unable to follow simple commands. nurse wants pt to at least sit on EOB. assisted pt requiring total A x 2-3. pt become agitated and was able to swing on nurse. pt needs assurance to calm down. pt unable to sit upright and unable to follow directions. pt assisted back to lying position in bed total A x 3. pt not appropriate for PT intervention at this time. informed nurse that PT will d/ c order at this time since several attempts was made since sunday (~ 3 days including today) and pt remains not appropriate for PT at this time. nurse agreed and will ask for new PT eval order once pt is appropriate.
[2017-10-17] VITALS (8 sets, daily range): BP systolic 127–161; BP diastolic 62–82; PULSE 62–95; RESP 16–20; TEMP 36.4–36.7; O2SAT 93–98
--- NOTE | 2017-10-17 01:20 | PC.NURSE ---
NOC shift: Pt pulled out PIV of right hand placed by daniela RN after pulling previous PIV despite securement. Four attempts made by TECHNICAL SUPPORT ANALYSTstaffing coordinator to replace PIV utilizing two REGISTRATION REP's to hold pt from harming self and staff due to mental status. Pt immediately pulls out successful PIV's or becomes combative once needle is placed in vein blowing site. Dr. Ordaz notified of difficulty placing PIV's at this time, order rec'd to leave IV out overnight at this time, hold IVF's until AM.
[2017-10-17] MEDS: ENOXAPARIN 40 MG/0.4 ML SYRINGE SUBCUT (10:08)
--- NOTE | 2017-10-17 11:30 | PT.IPTN ---
Current Diagnoses Metabolic encephalopathy (10/15/17) Physical Therapy Treatment Note M3 PT-IP Subjective Start: 10/14/17 10:21 Freq: Status: Active Protocol: Document 10/17/17 11:30 AB (Rec: 10/17/17 13:54 AB [id number]) Subjective Physical Therapy Visit Type Notes attempted PT eval today. nurse stated that pt is doing better. checked on pt with nurse. pt able to respond to questions but inconsistently and unable to make eye contact . pt encouraged to get up on bed and attempted to assist pt but after a few attempts, pt became agitated and resistive. position pt in bed. informed nurse that PT will try again in afternoon.
--- NOTE | 2017-10-17 11:30 | ST.IPIE ---
Visit Care Team Role Provider Type Jose Maria Calderon MD Family Provider Physician Primary Care Provider Specialty: Internal Medicine Address: [address] [place] [address] Email: Tae Gallardo DO Emergency Provider Physician Specialty: Emergency Medicine Address: [facility] [address] [place] [address] Email: Elia Gates MD Admit Provider Physician Attending Provider Specialty: Internal Medicine Address: [address] [place] [address] Email: Current Diagnoses Metabolic encephalopathy (10/15/17) Past Medical History (Last Reviewed 10/13/17 @ 19:22 by Tae Gallardo DO) Alcohol abuse (Chronic Medical) Dementia (Chronic Medical) GERD (gastroesophageal reflux disease) (Chronic Medical) ST IP Initial Evaulation Report [facility] Cognitive/Memory Evaluation Start: 10/17/17 10:48 Freq: Status: Active Protocol: Document 10/17/17 10:48 TLC (Rec: 10/17/17 11:17 TLC [id number]) Evaluation of Cognition Session Time Visit Start Time 08:00 Visit Stop Time 08:30 Total Visit Minutes 30 Subjective Subjective Nursing stated patient was more alert, responsive and appropriate for cognitive screen on this date. Patient seen lying in bed with his eyes closed. He did not wake up to verbal stimulit, but arouse to the lights being turned on. - - Cognition Orientation Skill Level Severely Impaired Comment Oriented to town only Auditory Math Skill Level Severely Impaired Comment Unable to perform serial subtraction task Clock Drawing Comment Did not test Cognitive Assessment Cognitive Assessment Initiated administration of Mini-Mental State Examination (MMSE) to compare with baseline of on MMSE in April of 2016 taken from report written by Dr. Tim Hudson of [facility]. Patient was agreeable to participate, though eye contact was decreased and he required max cues and prompts to respond. His verbal responses were largely incoherent and he displayed some paraphasias. He also turned toward the window and addressed his mother, who was not present in the room, multiple times. He was oriented to town only, unable to tell me the season, date, day, month, state, county, hospital or floor. He did not immediately recall cup, belt, clock despite multiple trials, and did not recall them after a short 2-3 minute delay. During confrontation naming, he was able to correctly name pen and pillow. He did not repeat a phrase when asked, rather he said Which phrase? You've got me confused. After clarification, he provided no response. He did not follow a three-step command, but he did read and follow a written direction. Due to time limitation, the two tasks requiring the patient write a sentence and copy a picture were not administered. He scored 4 total points. Interpretation of this reveals a score of 0-17 is indicative of a severe cognitive impairment. - Memory - Findings Cognitive/Memory Impressions Bradly presents with a severe cognitive impairment which has a significant impact on safety awareness as well as his ability to partake in basic conversation.He has a known history of dementia, alzheimers type vs. frontotemporal as well as noncompliance with attendance of psychiatry evaluations and office visits per MD note. He would benefit from psychiatry evaluation during this admission. Ongoing cognitive therapy will target orientation as well as assessment of communicative effectiveness. Treatment Goals Short Term Goals Bradly will express basic personal information and orientation information with 80% accuracy immediately after review.
--- NOTE | 2017-10-17 11:51 | PC.NURSE ---
attempted eval by physical therapy- he was non-compliant with this eval and could not be talked into attempting to sit on edge of bed- even tho he was attempting to do this without assist earlier in this shift- difficult for pt to maintain or even obtain eye contact with staff- pt is verbalizing conversation in room with no one else in room
--- NOTE | 2017-10-17 13:57 | PT.IPTN ---
Current Diagnoses Metabolic encephalopathy (10/15/17) Physical Therapy Treatment Note M3 PT-IP Subjective Start: 10/14/17 10:21 Freq: Status: Active Protocol: Document 10/17/17 13:55 AB (Rec: 10/17/17 13:57 AB [id number]) Subjective Physical Therapy Visit Type Notes received a call from ICU nurse stated that pt is ready for PT. checked on pt again and nurse stated that when they were trying to assist pt, pt became combative and required ~ 4 people to calm pt down. pt is not appropriate for PT at this time until pt is stable cognitively. nurse understood and PT eval will be d/c.
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
--- NOTE | 2017-10-17 15:01 | CM.DANOTE ---
DCP/continued: Reviewed chart. Spoke with RN/Terri this AM, she reports that patient has gone without mood altering medications for 30+hrs. COST AND SALES RECORD SUPERVISOR attempted to meet with patient this afternoon to do assessment. Met with patient attempted to explain COST AND SALES RECORD SUPERVISOR role. Patient alert but not oriented to time or place. During assessment patient began mumbling about property and the state of [place].? Patient unable to answer basic questions appropriately and did not do eye contact. Patient displays some paranoia about them coming He also appears to see people coming and points in the air. COST AND SALES RECORD SUPERVISOR left room and discussed further with RN. Dr. Calderon came down to floor and also met with patient. At this time Dr. Calderon reports that he is going to call Dr. Hickman for psychiatric evaluation. Patient's Mother/Poornima and sister showed up during COST AND SALES RECORD SUPERVISOR visit. Updated Mom and sister on current plan. RN reports that luisito sin called earlier today for patient acting combative. Patient refusing therapy however, at this point COST AND SALES RECORD SUPERVISOR unsure if patient comprehends what he is refusing. DPOA is Mother/Poornima [place]. DPOA paperwork on file at [facility] P: Pending. Psychiatry consulted to see patient today. Will review notes from Dr. Hickman in AM 10-18-17. BALAJI Crook
[2017-10-17] MEDS: ACETAMINOPHEN 325 MG TABLET 650 MG PO (16:39)
--- NOTE | 2017-10-17 19:24 | PM.CN ---
History of Present Illness Date Patient Seen: 10/17/17 Time Patient Seen: 15:00 Chief complaint: found on ground, etoh on board Reason for consult: diagnostic clarification and management of symptoms Requesting provider: Jose Maria Calderon Narrative: CC: ?fine? HOSPITAL COURSE: Admitted on 10/13/2017 after found down, welfare check initiated by family. Presentation thought to be most consistent with alcohol withdrawal, and he was treated for such. He received IV lorazepam 1 mg on 10/13, 3 mg total on 10/16 in two doses, but no other lorazepam needed. Alcohol was negative on admission. Head CT did not show specific abnormality to explain presentation. COLLATERAL FROM STAFF: Some agitation per nursing staff, not following directions, trying to get out of bed and not following or understanding what is going on around him No nystagmus observed, no gait observed Seemed calmer after doses of lorazepam, but did not require much, CIWA difficult to obtain due to mental status INTERVIEW: With patient: Initially keeps his eyes closed, but later opened his eyes and converses with this provider once mother and sister leave the room. When asked if he is feeling well taking care of he says yes, when asked if there is anything frightening a ring him in the hospital he says no, denies hallucinations. His answer to most questions started out appropriate, but after about one sentence deteriorates into statements that do not make sense, using words that do not belong together, although appears to be continuing to try to communicate his specific point. When asked where he lives he states [place], when asked to state his full name he says Bradly and then trails off. When asked about his mother and sister he says that his sister and he do not get along and then makes some other comments about his mother that sound paranoid but do not completely make sense. With mother and sister: Spoke with them outside the room after speaking with Bradly. They report that this is a significant change from patient's recent baseline, this is the 1st time they have seen his speech not making sense in the weight does currently. They report history of Alzheimer's, and needing prompting with basic activities of daily living including meals, what to wear to recent court date, etc. They report he has one previous episode of severe alcohol withdrawal, but that was different than this, he was experiencing DTs and hallucinations at the time but this seems somewhat different. They have been trying to establish psychiatric care but this is been difficult due to long wait times and patient's inconsistent see with making appointments. They state he was on citalopram for a time which was helpful in the past, but are not aware of other psychiatric medications that he has been on. They are quite worried about him. RECORD REVIEW: Dr. Hudson?s (neurology) evaluation from April 2016 and follow up note from May 2016 are available for review, and are notable for diagnosis of FTD vs. [place] dementia, strong recommendation to follow up with Psychiatry given affective symptoms and impulsivity. He was on galantamine ER 24 mg daily for at least a period of time. I do not see lab in these records, and an MRI scan done at [facility] in 2013 as referenced. Follow-up note by Dr. Fernandez at [facility] on 01/05/2014 gives diagnosis of Alzheimer's disease and mention of MRI. [facility] Medical History Alcohol abuse (Chronic) Dementia (Chronic) GERD (gastroesophageal reflux disease) (Chronic) Surgical History Status post lateral meniscus repair (Chronic) H/O inguinal hernia repair (Resolved) Social History household members: none Smoking Status: Former smoker alcohol intake: current substance use type: does not use Comment: PAST PSYCHIATRIC HISTORY: Per family, patient has been on citalopram in the past which was helpful, but was before his diagnosis of dementia. SUBSTANCE USE HISTORY: History of significant alcohol use including rehab treatment No clear history of other substance use FAMILY HISTORY: Alzheimer dementia in father, possible other remote family history of severe mental illness reported by pt?s mother but none in immediate family members SOCIAL HISTORY: Lives alone, support from family Per Dr. Gates?s 10/14/2017 H&P: ?Tobacco Use/Smoking Are you a: former smoker Smoking history Quit 15 years ago, previous hisotry 1/2 ppd for 22 years. 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 DEVELOPMENTAL HISTORY: unable to assess due to pt?s altered mental status PCP: Dr. Calderon SIGNIFICANT MEDICAL HISTORY: Per Dr. Gates?s 10/14/2017 H&P: ?Medical History Alcohol abuse (Chronic) Dementia (Chronic) GERD (gastroesophageal reflux disease) (Chronic) Surgical History Status post lateral meniscus repair (Chronic) H/O inguinal hernia repair (Resolved)? Meds Home Medications Medication Instructions Recorded Confirmed Type acetaminophen [Tylenol Extra 1,000 mg PO BID PRN 09/28/17 10/14/17 History Strength] coconut oil 1 cap PO DAILY 09/28/17 10/14/17 History omeprazole 40 mg PO DAILY 09/28/17 10/14/17 History Allergies Allergy/AdvReac Type Severity Reaction Status Date / Time morphine [MORPHINE] Allergy Severe iv caused Verified 10/13/17 13:51 red line Review of Systems Review of Systems unobtainable due to mental condition Exam Vital Signs (past 8 hours): - 10/17/17 15:48 10/17/17 15:52 Temperature 97.9 F Pulse Rate 70 Respiratory Rate 20 Blood Pressure 127/68 H Pulse Oximetry 96 96 Oxygen Delivery Method Room Air Oxygen Flow Rate 0 Narrative Exam Narrative: MENTAL STATUS EXAM: Appearance: thin, fair-skinned male with pérez hair, hospital gown around chest, legs & undergarment uncovered & visible, disheveled Behavior: some psychomotor slowing, slumping in bed, fair eye contact with this provider once he opens his eyes Speech: fluent, soft volume at times, switches words with similar sounding words at times, interruptible, nonsensical at times Mood: ?fine? Affect: incongruent with content, anxious, constricted Thought process: disorganized, tangential, perseverative Thought content: unable to fully assessed based on altered mental status, no clear evidence of SI or HI, does not endorse hallucinations to this provider but has mentioned to others, likely paranoia Memory: Impaired, not formally tested, MMSE provide formed by speech pathologist was 07/30 Attention: Poor Insight: Poor Judgment: Poor Objective Labs Result Diagrams: 10/15/17 04:39 10/15/17 04:39 Assessment & Plan Plan: Assessment/Plan Narrative: ASSESSMENT: Bradly Pierson is a 57-year-old male with known history of dementia (Alzheimer's versus frontotemporal) admitted to four days ago after found down, treated for presumed alcohol withdrawal. His clinical course is not typical for alcohol withdrawal, requiring very little lorazepam. His current presentation is a significant and acute change from his baseline, which is less typical for a dementia process outside of a vascular change. He is certainly disorganized, unable to sustain attention or follow commands. His presentation is consistent with delirium, and I want to make sure any medical etiology that could contribute to an acute change has been ruled out. Urine drug screen was not done on admission, I suspect urine was difficult to obtain, and I wonder about any other substance use. We could consider MRI to evaluate for new lesions, which could be also a compared to previous MRI at [facility]. In his current state, patient is unable to appreciate need for medical care or risks of not getting it, and unable to take care of activities of daily living. If medical causes not found, and condition does not improve dramatically, he may meet criteria for involuntary psychiatric treatment based on grave disability, however, this will need to be assessed at time of medical clearance. Given suspected paranoia and hallucinations, as well as agitation in the context of delirium, I think it is appropriate to start scheduled risperidone to see how patient responds. Given patient's propensity to pull out IV and some difficulty giving p.o. medications, I think that dissolvable p.o. medication is most appropriate. I would like to start with low dose of risperidone, as he may be sensitive to medications given his dementia, however he may also require higher doses to control symptoms and/or agitation. DIAGNOSES: Delirium of unknown etiology Moderate to severe dementia (Alzheimer?s vs. frontotemporal) RECOMMENDATIONS: - Start Risperdal M-tab (dissolvable) 0.5mg PO BID - OK to use Risperdal M-tab 0.5mg PO BID prn agitation in addition to scheduled dosing if needed - consider increasing dose to 1mg BID if not responding to 0.5mg dose - Labwork to include: urine drug screen, TSH, folate, B12; consider syphilis & HIV screen - Can consider brain MRI which could be compared to past imaging (I believe at [facility] in 2014) - consider obtaining records from Dr. Kyaw Koenig, psychiatrist in [facility], should have at least one visit on file prior to 2017 (for more psychiatric history) - Delirium precautions as you are doing, including normalizing sleep/wake cycle as much as possible, frequent re-orientation, access to glasses if needed, maintain hydration & nutrition status as possible, avoid medicaitons which can worsen delirium (particularly benzodiazepines, opioids, anticholinergics) - If medical cause of symptoms cannot be determined, and patient continues to be unable to appreciate risks of neglecting ongoing medical care (as evidenced prior to admission), he may be appropriate for involuntary referral for grave disability, however, this can be assessed by hospital SW & DCR - I will be off-campus until Sunday10/22/17, so will be unable to follow-up with patient until that time. Thank you for involving me in this patient?s care, I will check back in on Sunday if Mr. Boston is still in the hospital. Time Spent With Patient Time with patient: 25 - 35 minutes
[2017-10-17] MEDS: risperiDONE 0.25 MG TABLET 0.5 MG PO ×2 (19:26→23:38)
--- NOTE | 2017-10-17 19:29 | PC.NURSE ---
1924 - Patient becoming combative. Kicking at staff and trying to get out of bed. Attempted to redirect patient multiple times. Patient continued to yell and kick at staff. Dr. Calderon notified, see new order for risperdal.
--- NOTE | 2017-10-18 | DI.MRI.S_ITS ---
PROCEDURE: MR HEAD/BRAIN WO CON INDICATIONS: mental status change TECHNIQUE: Noncontrast axial T1 spin echo, axial T2 fast spin echo, sagittal and axial FLAIR, coronal T2 fast spin echo, axial gradient echo, axial diffusion and ADC through the brain. COMPARISON: [facility], MR, MR ANGIO HEAD WO CON, 10/18/2017, 15:41. [facility], CT, CT HEAD/BRAIN WO CON, 10/13/2017, 14:25. FINDINGS: Image quality: Excellent. CSF Spaces: Basal cisterns are patent. No extra-axial fluid collections. Ventricles are normal in size and shape. Brain: No intracranial masses or hemorrhage. Nelson/white matter interface is normal. Brainstem appears normal. Diffusion-weighted images demonstrate no acute ischemic insult. No chronic ischemic insults. Normal intravascular flow voids are present. Bilateral chronic subdural hygromas, unchanged. Skull and face: Calvarium has normal marrow signal. Orbits appear normal. Sinuses: Sinuses and mastoids are clear. IMPRESSION: 1. No acute intracranial process. 2. Chronic bilateral subdural hygromas. Dictated by: Ivonne Melvin M.D. on 10/18/2017 at 16:37 Approved by: Ivonne Melvin M.D. on 10/18/2017 at 16:40
--- NOTE | 2017-10-18 | DI.MRI.S_ITS ---
PROCEDURE: MR ANGIO HEAD WO CON INDICATIONS: ALTERED MENTAL STATUS TECHNIQUE: Noncontrast axial 3-D [id number] MR angiogram, with 3-dimensional maximum intensity projection (MIP) reformats of the internal carotid arteries and posterior circulation then performed. COMPARISON: [facility], MR, MR HEAD/BRAIN WO CON, 10/18/2017, 15:41. [facility], CT, CT HEAD/BRAIN WO CON, 10/13/2017, 14:25. FINDINGS: Image quality: Excellent. Anterior circulation: Intracranial internal carotid arteries demonstrate normal size and intraluminal flow signal. The flow within the paired anterior cerebral arteries is normal and symmetric. The flow within the middle cerebral arteries is normal and symmetric. The anterior communicating artery is seen. No stenoses, occlusions, or aneurysms. Posterior circulation: Visualized portions of the vertebral arteries demonstrate normal caliber, and join to form a normal appearing basilar artery. The flow within the posterior cerebral arteries is normal and symmetric. No stenoses, occlusions, or aneurysms. Chronic bilateral subdural hygromas. IMPRESSION: 1. No areas of hemodynamically significant stenosis, vascular occlusion or aneurysmal dilation within the anterior circulation. 2. No areas of hemodynamically significant stenosis, vascular occlusion or aneurysmal dilation within the posterior circulation. Dictated by: Ivonne Melvin M.D. on 10/18/2017 at 16:40 Approved by: Ivonne Melvin M.D. on 10/18/2017 at 16:42
[2017-10-18 00:03] VITALS: BP 135/85; PULSE 87; RESP 16; TEMP 36.9; O2SAT 97
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
[2017-10-18 08:15] VITALS: O2SAT 97
[2017-10-18 08:21] VITALS: BP 133/85; PULSE 84; RESP 20; TEMP 36.9; O2SAT 97
--- NOTE | 2017-10-18 10:44 | PC.NURSE ---
Addendum entered by Benedicto Dunaway R.N. 10/18/17 12:36: Pt awakens to voice and is in pleasant mood. Educated to med regimen. Pt is agreeable to taking PO meds and swallows them whole in applesauce. He is able to hold omid tavo and drink from straw with extensive cues. Family at bedside. Pt still with speech difficulty and word finding. Staff assisting with feeding. Original Note: Pt awakens to light verbal stimuli and initiates eye contact. Provided reorientation. Pt with tangential speech, word salad, and paranoid thoughts. He is easily distractable; however, unable to reorient to situation, place, time/date. He does acknowledge that he is confused and having trouble communicating his thoughts. Ensured pt that he is in a safe place. He is intermittently sleeping. Per report, pt with broken sleep. Opened blinds in room and oriented to time of day. Bed in chair position and set up assist provided for breakfast. Pt declined assistance with feeding and dozes back to sleep without eating. rounded. Orders received for MRI. Updated pt on new order and explained procedure and reasoning for imaging. Unable to ascertain if pt understands. He is unable to answer MRI questions. Called to mother, Poornima Boston, who is DPOA to complete MRI questions. No answer and unable to leave voice message to return call r/t voice mailbox full.
[2017-10-18] MEDS: FOLIC ACID 1 MG TABLET PO (11:32)
[2017-10-18] MEDS: ENOXAPARIN 40 MG/0.4 ML SYRINGE SUBCUT (11:32)
[2017-10-18] MEDS: MULTIVITAMIN 1 TABLET 1 TAB PO (11:32)
[2017-10-18] MEDS: PANTOPRAZOLE 40 MG PACKET PO (11:33)
[2017-10-18] MEDS: ACETAMINOPHEN 325 MG TABLET 650 MG PO (12:20)
[2017-10-18 16:30] VITALS: BP 122/78; PULSE 66; RESP 16; TEMP 37.1; O2SAT 16
--- NOTE | 2017-10-18 16:59 | PC.NURSE ---
1600- Patient very alert and animated. Radiology here to take patient to do a scan. Patient able to transfer to the stretcher with verbal cueing but requires close supervision and reinforcement of instruction. Patient is confused but pleasant at this time.
[2017-10-18 19:31] VITALS: O2SAT 99
--- NOTE | 2017-10-18 19:34 | PC.NURSE ---
1830- Patient showered. Patient seemed frightened because he does not understand what is going on and once the shower was begun he became very agitated. The shower was expidited and patient returned to his room. Patient remained quite agitated so patient was medicated per order. 1930- Patient resting in the room. Pleasant and attempting conversation but is not able to follow a thought or complete a thought. Patient has word salad and at times is paranoid. Will monitor.
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
[2017-10-18 23:00] VITALS: O2SAT 99
[2017-10-19] VITALS: BP 113/70; PULSE 86; RESP 18; O2SAT 97
--- NOTE | 2017-10-19 | DI.RAD.S_ITS ---
PROCEDURE: XR SHOULDER LT MIN 2V INDICATIONS: limited ROM in left shoulder TECHNIQUE: 3 views of the shoulder were acquired. COMPARISON: 07/23/2017 rib radiographs. FINDINGS: Bones: Since 07/23/2017 irregular lucency has developed in the distal left acromion. Finding does not involve the acromioclavicular joint. Osteopenia. The glenohumeral joint is poorly seen but grossly demonstrates degenerative change without fracture. Soft tissues: No suspicious soft tissue calcifications. IMPRESSION: Irregular lucency in the distal left acromion may represent a fracture although it is new since 07/23/2017. Infection or a soft tissue mass is possible. If clinical exam cannot distinguish these possibilities an MRI with and without contrast could be performed. Dictated by: Shilo Roach M.D. on 10/19/2017 at 11:29 Approved by: Shilo Roach M.D. on 10/19/2017 at 11:32
--- NOTE | 2017-10-19 00:32 | PC.NURSE ---
Addendum entered by Lily Kevin R.N. 10/19/17 06:14: Able to convince patient to take ordered SL Risperidone. After continued restlessness he finally fell asleep for approximately 2 hours and upon waking has continued to be restless and fidgety in bed but is not yelling out or attempting to get OOB. Allowed to fidget with seizure pads, gown, bedding etc to distract himself. Attempted urinal use with him multiple times, unable to follow commands well enough to use it. Incontinent of urine X 1. Original Note: Addendum entered by Lily Kevin R.N. 10/19/17 02:15: Pt remains difficult to manage due to his inability to reorient at all and follow any commands. Reassurance given constantly. Escalates very quickly. Dr. Ordaz notified, order for an extra dose of Risperidone. Awaiting pharmacy to supply. Original Note: 2330 Received patient attempting to get OOB with two staff members at bedside. Pt unsteady on his feet, unable to follow cueing of any kind. Acts as if he doesn't actually remember how to walk. Assisted back in bed with 3 staff member assistance. Pt cooperative with taking PO dose of Risperidone with the exception of trying to bite this RN's hand after taking it. 2340 Pt becoming increasingly agitated and combative; yelling and swatting at staff with any attempts to assist him back into bed. Security called to bedside X 2. Continues to get to the end of the bed with feet on floor saying he has got to go. Dr. Ordaz paged, still awaiting call back. Eventually after about 60 minutes 4 staff members able to get patient back into bed. Incontinence care provided. Bed alarm verified active. Pt in line of sight. Will monitor closely.
--- NOTE | 2017-10-19 02:00 | PC.NURSE ---
Pt is restless and is looking for his stuff and also asking for Osmel.
[2017-10-19] MEDS: RISPERIDONE 0.5 MG SL (02:48)
[2017-10-19 08:20] VITALS: BP 148/92; PULSE 82; RESP 16; TEMP 36.6; O2SAT 98
[2017-10-19] MEDS: PANTOPRAZOLE 40 MG TABLET PO (10:32)
[2017-10-19] MEDS: FOLIC ACID 1 MG TABLET PO (10:33)
[2017-10-19] MEDS: MULTIVITAMIN 1 TABLET 1 TAB PO (10:33)
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
--- NOTE | 2017-10-19 13:05 | PT.IIE ---
Current Diagnoses Metabolic encephalopathy (10/15/17) Surgical History (Last Reviewed 10/13/17 @ 19:22 by Tae Gallardo DO) Status post lateral meniscus repair (Chronic) H/O inguinal hernia repair (Resolved) Medical History (Last Reviewed 10/13/17 @ 19:22 by Tae Gallardo DO) Alcohol abuse (Chronic) Dementia (Chronic) GERD (gastroesophageal reflux disease) (Chronic) Physical Therapy Inpatient Evaluation/Re-Eval M1 PT/OT-IP Prior Functional Status Start: 10/14/17 10:21 Freq: Status: Active Protocol: Document 10/19/17 13:05 AB (Rec: 10/19/17 16:16 AB [id number]) Medical Review Prior Functional Status Medical History Reviewed Yes Mobility and Gait per family: pt able to ambulate without AD Activities of Daily Living and IADL's per family: pt requires set up and cues for dressing but does not need physical assistance Social History Household Members none Living Arrangements House Number of Floors (Floors) Two Floors Number of Stairs To Enter/Railing? has no steps to enter but has ~ 16 steps with R rail ascending to get to bed room Home Environment Standard Height Toilet Walk in Shower Built-In Shower Seat Home Equipment Crutches Additional Social History Comment pt has a walking stick M2 PT-IP Current Condition Start: 10/14/17 10:21 Freq: Status: Active Protocol: Document 10/19/17 13:05 AB (Rec: 10/19/17 16:16 AB [id number]) Physical Therapy Current Condition Current Condition Evaluation Date 10/19/17 Treatment Diagnosis GLF; ETOH withdrawal; difficulty with walking Onset Date 10/15/17 Precautions Other Precautions falls; can be combative M3 PT-IP Subjective Start: 10/14/17 10:21 Freq: Status: Active Protocol: Document 10/19/17 13:05 AB (Rec: 10/19/17 16:16 AB [id number]) Subjective Physical Therapy Visit Type Type Initial Evaluation Visit Start Time 13:05 Visit Stop Time 14:14 Total Visit Minutes 69 Number of DISTRICT AGENT Visits 0 Therapy Pain Assessment Pain Present Pain Present Denied Pain M4 PT-IP Mobility and Gait Start: 10/14/17 10:21 Freq: Status: Active Protocol: Document 10/19/17 13:05 AB (Rec: 07/20/18 16:16 AB [id number]) PT-Bed Mobility Assessment Supine to Sit Supine to Sit Maximum Assistance 2 Person Assistance Head of Bed Elevated Sit to Supine Sit to Supine Maximum Assistance 2 Person Assistance PT-Transfer Assessment Sit to and From Stand Sit to and from Stand Maximum Assistance 2 Person Assistance Use of Upper Extremities Comments Mobility Comments pt with confusion and able to inconsistently follow one step commands. assisted pt with putting socks on. when instructed to try to put socks on, pt was not aware of how to put socks. PT put socks on foot and when asked to put socks on, pt unaware of his foot and how to pull socks on. pt impulsive and requires max cues with all tasks. pt required max A x 2 for supine to sit with max cues for technqiues and safety. pt completed sit to stand from EOB max A x 2 and max cues and was able to maintain standing max A using FWW for support while nurse assisted with brief management. pt became agitated and has to sit backdown and required reassurance and education on importance of mobility. pt agreed to stand up again max A x 2 and max cues and instructed to transfer to chair. pt was able to take a few steps towards the chair max A x 2 and max cues but unable to complete transfer as pt became agitated again. pt assisted to sit down on bed. calmed pt down and instructed to lay back in bed requiring max A x 2 and max cues. positioned pt in bed. bed alarm on. family in room with pt. PT-Balance Assessment Sitting Balance and Reactions Static Sitting Balance Ability Good Dynamic Sitting Balance Ability Fair Standing Balance and Reactions Static Standing Balance Ability Poor Dynamic Standing Balance Ability Poor M5 PT-IP Objective Assessments Start: 10/14/17 10:21 Freq: Status: Active Protocol: Document 10/19/17 13:05 AB (Rec: 10/19/17 16:16 AB [id number]) Orientation Orientation/Cognition Level of Alertness Confusional State Orientation Name Language Function Ability Word Finding Difficulties Safety Awareness Decreased Safety Awareness Memory Description Short Term Impaired Hydrochloric Manufacturing Supervisor Impaired Comments pt continues to have confusion and easily agitated. Strength Lower Extremity Strength Assessment Bilaterally Impaired Hip 4/5 Knee 4/5 M6 PT-IP Treatment Start: 10/14/17 10:21 Freq: Status: Active Protocol: Document 10/19/17 13:05 AB (Rec: 10/19/17 16:16 AB [id number]) Physical Therapy Treatment Education Education Provided Safety Other Treatments Other Treatment Performed informed pt's family regarding PT tx plans and goals and pt' s current mobility and limitations. M7 PT-IP Assessment and Plan Start: 10/14/17 10:21 Freq: Status: Active Protocol: Document 10/19/17 13:05 AB (Rec: 10/19/17 16:16 AB [id number]) PT Summary Assessment and Plan Potential Rehabilitation Potential Fair Status of Condition at Evaluation Evolving Summary Impairments Strength Balance Coordination Sensation Cognition Bed Mobility Transfers Gait Activity Tolerance Assessment Summary pt with decreae cognitive level affecting mobility and safety. will continue to assess pt. Pt will require SNF rehab. pt require / care at this time. Goals Bed Mobility Goal Standby Assistance Transfer Goal Standby Assistance Gait Goal Standby Assistance Gait Distance 100 Other Goals up/down 16 steps with R rail ascending Days to Meet Goals 5 Frequency of Treatment Frequency Of Treatment Once a Day Treatment Plan Physical Therapy Treatment Plan Bed Mobility Training Transfer Training Gait Training Therapeutic Exercise Balance Retraining Discharge Planning Neuromuscular Re-ed Coordination Retraining Manual Therapy Recommendations To Nursing Amount of Assist Needed 2 Person Assist Discharge Recommendations PT Discharge Recommendations SNF Rehab Equipment Needed for Home Before may require FWW depending on Discharge progress and d/c plan
--- NOTE | 2017-10-19 13:41 | PC.NURSE ---
Pt has been intermittently paranoid today. Initially in a pleasant mood, but became agitated after being woken up for assessment by PERSONNEL SUPERVISOR. Unable to reorient/redirect. Pt refusing to take SL Risperdal as well as other medications, I'm going to have to get a second opinion. Set pt up with breakfast tray and beverages, ensured safety, and gave pt some time alone to calm self. Pt ate applesauce and had a few sips of omid tavo. Pt more pleasant and cooperative with extensive cueing over the course of the afternoon. Difficult to direct and unable to comprehend detailed directions. Pt resistant to most care and becomes agitated with nursing care, but calms with decreased stimuli. Pt was given a wash cloth and able to wash face. Gave pt tooth brush and instructed to brush teeth. Pt held tooth brush but was concerned that he was overdoing it. Told pt he had not yet brushed his teeth today and that it was important to do. Offered assistance. Unable to direct pt, however. Physical therapy in to eval pt. Pt required extensive cueing to sit at the edge of bed and stand with fww. He felt that transferring to the chair was too much so sat back down in bed. Provided repositioning and bed alarm on. Family at bedside.
--- NOTE | 2017-10-19 14:42 | CM.DPC ---
Discharge Planning/Care Management CM Discharge Assessment Start: 10/14/17 12:47 Freq: Status: Active Protocol: Document 10/14/17 12:48 BF (Rec: 10/14/17 13:05 BF [id number]) Discharge Planning Assessment Assigned Instructor Of Spanish BREAK OUT WORKER History Provided By Family Member Medical Record Has Patient been admitted in last 30 No days? Is this patient on Medicare? Yes Is the admit diagnosis the same? No Comment Pt may be in ETOH withdrawal, no alcohol found in UDS. Psychiatric, dementia, ETOH. Prior Living Arrangements House Household Members none Type of transporation used prior to Relies on Others admit Comment Sister Alejandra provides most of the transport for pt. Independent with ADL's No: Needs many cues for eating and chores Is patient alert and oriented? No: dementia, etoh, possible psychiatric issues Needs Assistance With Meal Prep Managing Medications Home Chores / Shopping Caregiver for Another No Patient Discharge Plan Description Drug/Alcohol Rehab Community Services Needed at Discharge Social Work Comment Family and MD feel inpt hospitalization, like geropsych or mh, is needed at d/c. Discharge Plan Psychiatric Facility Review Status In Process Next Review Type Discharge Review Document 10/15/17 16:10 KJS (Rec: 10/15/17 16:19 KJS [id number]) Discharge Planning Assessment Assigned Instructor Of Spanish BREAK OUT WORKER History Provided By Family Member Medical Record Has Patient been admitted in last 30 No days? Is this patient on Medicare? Yes Is the admit diagnosis the same? No Comment Pt may be in ETOH withdrawal, no alcohol found in UDS. Psychiatric, dementia, ETOH. Prior Living Arrangements House Household Members none Type of transporation used prior to Relies on Others admit Comment Sister Alejandra provides most of the transport for pt. Independent with ADL's No: Needs many cues for eating and chores Is patient alert and oriented? No: dementia, etoh, possible psychiatric issues Needs Assistance With Meal Prep Managing Medications Home Chores / Shopping Caregiver for Another No Patient Discharge Plan Description Drug/Alcohol Rehab Community Services Needed at Discharge Social Work Comment Family and MD feel inpt hospitalization, like geropsych or mh, is needed at d/c. Discharge Plan Psychiatric Facility Review Status In Process Next Review Type Discharge Review 10/15/17 16:10 CM Discharge Plan Note by Marry French/BREAK OUT WORKER Note: Reviewed chart. Spoke with RN/Terri Will this AM she reports that patient continues to be medicated and unable to interview. Terri reports that MD changed patient to inpatient status today. BREAK OUT WORKER has not confirmed with UR/RN. Will check in AM rounds on 10-16-17. Met briefly with patient's Mother Poornima and sister at bedside explained role. Copy of DPOA paperwork provided for patient's record. DPOA work confirms that patient's mother is DPOA. At this time d/c plan unknown because BREAK OUT WORKER unable to do assessment secondary to patient's medical status. White board in patient' room updated and notified family that CM team will continue to follow closely. P: Pending. BALAJI Crook Initialized on 10/15/17 16:10 - END OF NOTE Document 10/17/17 15:01 [facility] (Rec: 10/17/17 15:18 [facility] [id number]) Discharge Planning Assessment Assigned Instructor Of Spanish BREAK OUT WORKER History Provided By Family Member Medical Record Has Patient been admitted in last 30 No days? Is this patient on Medicare? Yes Is the admit diagnosis the same? No Comment Pt may be in ETOH withdrawal, no alcohol found in UDS. Psychiatric, dementia, ETOH. Prior Living Arrangements House Household Members none Type of transporation used prior to Relies on Others admit Comment Sister Alejandra provides most of the transport for pt. Independent with ADL's No: Needs many cues for eating and chores Is patient alert and oriented? No: dementia, etoh, possible psychiatric issues Needs Assistance With Meal Prep Managing Medications Home Chores / Shopping Caregiver for Another No Patient Discharge Plan Description Drug/Alcohol Rehab Community Services Needed at Discharge Social Work Comment Family and MD feel inpt hospitalization, like geropsych or , is needed at d/c. Discharge Plan Psychiatric Facility Review Status In Process Next Review Type Discharge Review 10/17/17 15:01 CM Disch. Assessment Note by Marry French DCP/continued: Reviewed chart. Spoke with MOISES/Terri this AM, she reports that patient has gone without mood altering medications for 30+hrs. BREAK OUT WORKER attempted to meet with patient this afternoon to do assessment. Met with patient attempted to explain BREAK OUT WORKER role. Patient alert but not oriented to time or place. During assessment patient began mumbling about property and the state of [place].? Patient unable to answer basic questions appropriately and did not do eye contact. Patient displays some paranoia about them coming He also appears to see people coming and points in the air. BREAK OUT WORKER left room and discussed further with RN. Dr. Calderon came down to floor and also met with patient. At this time Dr. Calderon reports that he is going to call Dr. Hickman for psychiatric evaluation. Patient's Mother/Poornima and sister showed up during BREAK OUT WORKER visit. Updated Mom and sister on current plan. RN reports that luisito sin called earlier today for patient acting combative. Patient refusing therapy however, at this point BREAK OUT WORKER unsure if patient comprehends what he is refusing. DPOA is Mother/Poornima [place]. DPOA paperwork on file at [facility] P: Pending. Psychiatry consulted to see patient today. Will review notes from Dr. Hickman in AM 10-18-17. BALAJI Crook Initialized on 10/17/17 15:01 - END OF NOTE DCP Cont: Reviewed chart. Met w/pt, mom Poornima and briefly w/sister Alejandra. Asked pt how he was feeling, also asked about any recollection re what had happened prior to admission. Pt shakes this BREAK OUT WORKER's hand, pleasant throughout our visit, makes eye contact, but can not follow conversation or complete a sentence. Pt rambles, is non-sensical and picks at his pillow or bed. Pt asks his mom for help often to complete his sentences. Introduced role as a new face in pt's care plan and explained that this BREAK OUT WORKER was following closely w/medical providers to understand when pt may be medically stable, then next steps can be further discussed. Dr Hickman will return Sunday for continued consultation. Mom/sister eagerly await results from pt's MRI. Pt still far from his mental baseline (per family) and unable to engage in meaningful conversation today. MOISES Flores explained pt was worse today (mentally) than yesterday, paranoid and refusing medication. Following closely over the w/e. BALAJI Bullard
[2017-10-19] MEDS: HALOPERIDOL 5 MG/ML VIAL IM ×3 (16:04→22:39)
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
[2017-10-19] MEDS: RISPERIDONE 0.5 MG 1 MG SL (18:12)
--- NOTE | 2017-10-19 19:13 | PC.NURSE ---
pt not cooperative. Pt using foul language, trying to get OOB. Security at bedside. No physical assessment done, for staff safety. Pt given dose of IM haldol and given HS dose of risperidone early. 1:1 sitter at bedside.
--- NOTE | 2017-10-19 21:30 | PC.NURSE ---
Addendum entered by Elaine Edge R.N. 10/20/17 01:30: 0130-Patient is aggressive, kicking at staff, unable to comprehend situation, security systems sales representative in room, all staff attempting to deescalate patient's behavior. 1mg IM Ativan given at 0055, uneffective, another 5mg IM Haldol given at 0115. Unable to assist patient with urinal or changing of brief d/t agitation and combativeness, will attempt when he is calm. Original Note: Addendum entered by Elaine Edge R.N. 10/19/17 23:12: 2230-Patient awake, aggressive, attempting to get out of bed, staff trying to assist with toileting but patient is unable to comprehend or follow directions. 5mg IM Haldol given for increasing agitation and combativeness. Original Note: 1829-Resumed care of patient, he is drowsy, remains confused, but little more cooperative, another 5mg IM Haldol given with hid HS Respiradol, took with pudding. Seizure pads up, curtain open, 1:1 EPITAXIAL REACTOR OPERATOR staffing, and security systems sales representative with patient.
[2017-10-19 22:15] VITALS: O2SAT 96
[2017-10-19 22:27] VITALS: BP 97/55; PULSE 92; RESP 18; O2SAT 96
[2017-10-20] MEDS: LORazepam 2 MG/ML SYRINGE 1 MG IM (00:55)
[2017-10-20] MEDS: HALOPERIDOL 5 MG/ML VIAL IM (01:24)
[2017-10-20 04:06] VITALS: O2SAT 97
[2017-10-20 04:42] VITALS: PULSE 83; RESP 16; TEMP 36.4; O2SAT 97
[2017-10-20 08:30] VITALS: BP 125/84; PULSE 77; RESP 18; TEMP 36.6; O2SAT 98
[2017-10-20] MEDS: FOLIC ACID 1 MG TABLET PO (09:35)
[2017-10-20] MEDS: MULTIVITAMIN 1 TABLET 1 TAB PO (09:35)
[2017-10-20] MEDS: PANTOPRAZOLE 40 MG TABLET PO (09:35)
[2017-10-20] MEDS: ENOXAPARIN 40 MG/0.4 ML SYRINGE SUBCUT (09:35)
[2017-10-20] MEDS: RISPERIDONE 0.5 MG 1 MG SL ×2 (09:36→20:15)
[2017-10-20 10:32] VITALS: O2SAT 97
--- NOTE | 2017-10-20 11:13 | PT.IPTN ---
Current Diagnoses Metabolic encephalopathy (10/15/17) Physical Therapy Treatment Note M2 PT-IP Current Condition Start: 10/14/17 10:21 Freq: Status: Active Protocol: Document 10/19/17 13:05 AB (Rec: 10/19/17 16:16 AB [id number]) Physical Therapy Current Condition Current Condition Evaluation Date 10/19/17 Treatment Diagnosis GLF; ETOH withdrawal; difficulty with walking Onset Date 10/15/17 Precautions Other Precautions falls; can be combative M3 PT-IP Subjective Start: 10/14/17 10:21 Freq: Status: Active Protocol: Document 10/20/17 11:13 AB (Rec: 10/20/17 11:58 AB [id number]) Subjective Physical Therapy Visit Type Type Treatment Note Visit Start Time 11:13 Visit Stop Time 11:32 Total Visit Minutes 19 Number of TRIMMING PRESS OPERATOR Visits 0 Physical Therapy Visit Comments Patient Comments pt continues to have confusion Therapy Pain Assessment Pain Present Pain Present Denied Pain M4 PT-IP Mobility and Gait Start: 10/14/17 10:21 Freq: Status: Active Protocol: Document 10/20/17 11:13 AB (Rec: 10/20/17 11:58 AB [id number]) PT-Bed Mobility Assessment Supine to Sit Supine to Sit Maximum Assistance 2 Person Assistance Head of Bed Elevated PT-Transfer Assessment Sit to and From Stand Sit to and from Stand Moderate Assistance Maximum Assistance 2 Person Assistance Use of Upper Extremities Equipment Transfer Assistive Device Gait Belt Front Wheeled Walker Transfers Transfer Destination Chair Transfer Technique Stand Step Pivot Transfer Ability Level of Assist Maximum Assistance 2 Person Assistance Use of Upper Extremities Comments Mobility Comments pt continues to have confusion and requires max cues and constant redirection to complete task. M5 PT-IP Objective Assessments Start: 10/14/17 10:21 Freq: Status: Active Protocol: Document 10/19/17 13:05 AB (Rec: 10/19/17 16:16 AB [id number]) Orientation Orientation/Cognition Level of Alertness Confusional State Orientation Name Language Function Ability Word Finding Difficulties Safety Awareness Decreased Safety Awareness Memory Description Short Term Impaired Machine Inker Impaired Comments pt continues to have confusion and easily agitated. Strength Lower Extremity Strength Assessment Bilaterally Impaired Hip 4/5 Knee 4/5 M6 PT-IP Treatment Start: 10/14/17 10:21 Freq: Status: Active Protocol: Document 10/20/17 11:13 AB (Rec: 10/20/17 11:58 AB [id number]) Physical Therapy Treatment Education Education Provided Safety M7 PT-IP Assessment and Plan Start: 10/14/17 10:21 Freq: Status: Active Protocol: Document 10/20/17 11:13 AB (Rec: 10/20/17 11:58 AB [id number]) PT Summary Assessment and Plan Potential Rehabilitation Potential Fair Summary Impairments Strength Balance Coordination Cognition Bed Mobility Activity Tolerance Progress Towards Goals Slow Progress - Other Assessment Summary pt requiring 2 person assist with mobility and requires max cues with all tasks. pt's decrease cognitive level affecting mobility. pt will require SNF rehab. Frequency of Treatment Frequency Of Treatment Once a Day Treatment Plan Physical Therapy Treatment Plan Bed Mobility Training Transfer Training Gait Training Therapeutic Exercise Balance Retraining Discharge Planning Neuromuscular Re-ed Coordination Retraining Manual Therapy Recommendations To Nursing Amount of Assist Needed 2 Person Assist Discharge Recommendations PT Discharge Recommendations SNF Rehab
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
--- NOTE | 2017-10-20 14:17 | PC.NURSE ---
PT ABLE TO SIT IN CHAIR WITH MUCH ASSIST AND SLOW SINGLE COMMANDS THAT HE CAN FOLLOW- VOIDED PER BSC- TAKING PO RX WITH [facility] AT [facility]- HE IS VISITING WITH FAMILY AT PRESENT AND HAS NOT BEEN AGGRESSIVE AT ALL THIS SHIFT
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
[2017-10-20 18:35] VITALS: BP 145/86; PULSE 96; RESP 20; TEMP 37; O2SAT 100
--- NOTE | 2017-10-20 18:44 | PC.NURSE ---
Addendum entered by Valerie Nam R.N. 10/20/17 22:07: Pt started getting agitated around 20:15. Took 45 minutes to get pt to eat risperidone in ice cream. Got pt back to bed. Very restless. Original Note: Melony note Pt up in chair with chair alarm active. Pt talking,but not finishing thoughts. Pt also having some hallucinations, saying did you see that? Pt is calm, but can only sometimes follow simple commands. Sometimes pt does opposite of what you tell him, such as lean back and he will bend forward at the waist. Set pt up for dinner in chair. Pt ate some food, but is easily distracted. Pt ate butter out of the wrapper, had rajan food cake wadded in his hand. pt almost dropped tray on his lap. partial bath given after dinner. Pt used BSC for void and BM. Pt not violent or hostile at this time.
[2017-10-20 19:04] VITALS: O2SAT 96
--- NOTE | 2017-10-20 23:43 | PC.NURSE ---
Addendum entered by Elaine Edge R.N. 10/21/17 04:34: [facility] here from [phone]. Patient has been restless, fidgeting, paranoid, and defensive, but not combative at this time. Sitting up in bed, able to drink Ensure without difficulty. Original Note: Addendum entered by Elaine Edge R.N. 10/21/17 00:46: Patient more calm at this time, allows staff to replace brief and cover with warm blankets. Original Note: 2330-At change of shift, staff entered room to assess and assist patient with urinal. He appeared calm at first, still not following directions at all, but was allowing this RN to auscultate lungs and abdomen, then suddenly switched demeanor in one second and started kicking and swinging arms at staff, yelling Get out of here We were not able to get close to him to apply a brief. Security was called via [employer] with no response. Patient remains very angry, but staying in the bed, curtain is open, alarm on, will monitor.
[2017-10-21 00:26] VITALS: O2SAT 94
[2017-10-21 00:30] VITALS: PULSE 88; O2SAT 94
[2017-10-21 08:14] VITALS: BP 144/88; PULSE 80; RESP 18; TEMP 36.9; O2SAT 98
[2017-10-21] MEDS: RISPERIDONE 0.5 MG 1 MG SL ×2 (08:49→21:08)
[2017-10-21] MEDS: MULTIVITAMIN 1 TABLET 1 TAB PO (08:49)
[2017-10-21] MEDS: PANTOPRAZOLE 40 MG TABLET PO (08:49)
[2017-10-21] MEDS: FOLIC ACID 1 MG TABLET PO (08:49)
[2017-10-21] MEDS: ENOXAPARIN 40 MG/0.4 ML SYRINGE SUBCUT (08:51)
[2017-10-21 10:57] VITALS: O2SAT 96
--- NOTE | 2017-10-21 11:00 | PT.IPTN ---
Current Diagnoses Metabolic encephalopathy (10/15/17) Physical Therapy Treatment Note M2 PT-IP Current Condition Start: 10/14/17 10:21 Freq: Status: Active Protocol: Document 10/21/17 11:00 RCC (Rec: 10/21/17 11:33 RCC [id number]) Physical Therapy Current Condition Current Condition Evaluation Date 10/19/17 Treatment Diagnosis GLF; ETOH withdrawal; difficulty with walking Onset Date 10/15/17 Precautions Other Precautions falls; can be combative M3 PT-IP Subjective Start: 10/14/17 10:21 Freq: Status: Active Protocol: Document 10/21/17 11:00 RCC (Rec: 10/21/17 11:33 RCC [id number]) Subjective Physical Therapy Visit Type Type Treatment Note Visit Start Time 10:45 Visit Stop Time 11:00 Total Visit Minutes 15 Number of OTOLARYNGOLOGY REP Visits 0 Physical Therapy Visit Comments Patient Comments Pt notes that he has to urinate. Short Term Goals unable to state. Therapy Pain Assessment Location Left Shoulder Scale Used does not rate M4 PT-IP Mobility and Gait Start: 10/14/17 10:21 Freq: Status: Active Protocol: Document 10/21/17 11:00 RCC (Rec: 10/21/17 11:33 [facility] [id number]) PT-Transfer Assessment Sit to and From Stand Sit to and from Stand Moderate Assistance 2 Person Assistance Use of Upper Extremities Equipment Transfer Assistive Device Gait Belt Front Wheeled Walker Transfers Transfer Destination Chair Transfer Technique Stand Step Pivot Transfer Ability Level of Assist Moderate Assistance 2 Person Assistance Use of Upper Extremities Comments Mobility Comments Max VC for pt to perform stand to sit, pt c/o L shoulder pain but unable to rate. M5 PT-IP Objective Assessments Start: 10/14/17 10:21 Freq: Status: Active Protocol: Document 10/21/17 11:00 RCC (Rec: 10/21/17 11:33 RCC [id number]) Orientation Orientation/Cognition Level of Alertness Confusional State Gross Range of Motion Upper Extremity ROM Impairments Impaired LUE ROM, holding it toward his midline in sitting but able to use it in standing when holding FWW. M6 PT-IP Treatment Start: 10/14/17 10:21 Freq: Status: Active Protocol: Document 10/20/17 11:13 AB (Rec: 10/20/17 11:58 AB [id number]) Physical Therapy Treatment Education Education Provided Safety M7 PT-IP Assessment and Plan Start: 10/14/17 10:21 Freq: Status: Active Protocol: Document 10/21/17 11:00 RCC (Rec: 10/21/17 11:33 RCC [id number]) PT Summary Assessment and Plan Summary Progress Towards Goals Slow Progress due to Medical Issues Slow Progress - Other Assessment Summary Pt still requiring 2 assist for mobility, and max cuing for safe transfer to a chair. Pt is not safe/appropriate to ambulate at this time, still very confused and high risk of falling. He is not safe to return to prior living situation at this time, and is well below his prior functional level. Goals Bed Mobility Goal Standby Assistance Transfer Goal Standby Assistance Gait Goal Standby Assistance Gait Distance 100 Other Goals up/down 16 steps with R rail ascending Days to Meet Goals 5 Frequency of Treatment Frequency Of Treatment Once a Day Treatment Plan Physical Therapy Treatment Plan Bed Mobility Training Transfer Training Gait Training Therapeutic Exercise Balance Retraining Discharge Planning Neuromuscular Re-ed Coordination Retraining Manual Therapy Recommendations To Nursing Amount of Assist Needed 2 Person Assist Discharge Recommendations PT Discharge Recommendations SNF Rehab
--- NOTE | 2017-10-21 12:09 | CM.SWNOTE ---
Addendum entered by BALAJI Bullard 10/21/17 13:29: Updated pt's mom, Poornima and sister, Alejandra at bedside this afternoon. Reviewed the possibilities for the DCP. Both agreeable to waiting for addtl. input from Psychiatrist Dr Hickman and both hopeful pt will still get treatment for his long h/o alcohol dependance and MH issues. Then suggested they complete a Medicaid application for [facility] and Alejandra explained pt will not qualify financially. Poornima and Alejandra then suggest they contact Leonarda from [facility] again. This DATA SERVICES DEVELOPER enthusiastically encouraged contacting Leonarda; pt and family have already met and spoken to Leonarda about pt's eventual need for Dementia care. We will continue to follow closely. Family appreciates updates when available. Original Note: 10/21/17: Reviewed chart and spoke w/MOISES Murray. Pt again became increasingly impulsive and agitated last night. [facility] [id number]. Detailed report from [facility] is located on pt's chart. All geropsych facilities in [facility] were contacted and report states pt was declined d/t Alzheimer's dx. Eladio-psychology intern [place] requested an intake admission referral info and stated that psychologist on Sunday could review and potentially provide an appropriate referral for treatment to meet the increasing need (of patient). Pt did not meet retirement criterion per RCW 71.05 d/t symptoms of early onset dementia rather than historical ETOH or MH dx. This DATA SERVICES DEVELOPER called [facility] triage this morning to learn more and clarify reason for this determination, etc, the final case determination had not been called in yet. [facility] [phone], [facility]F P# [phone]. The RN (name?) that this DATA SERVICES DEVELOPER spoke with had reviewed the referral and gave the following input: [facility] has a 60yo+ policy(pt is 57yo) and they accept ADAMARIS almost exclusively. She felt pt met criteria to be detained based on her review of notes, ie combativeness, not safe- harm to self and others, she suggested another call to [facility] dispatch. Places that might accept someone that is obviously not a voluntary candidate, not detained, and requires psychiatric treatment: [facility], [facility], [facility], [facility]. Placed call to Normanna w/e #, spoke to RICHIE Gómez who gave the number for [facility] P# [phone], available M- Only. Contact w/Normanna on Sunday might be helpful to determine what facilities are contracted (?) and what is the authorization process (?). Organized a psych bed referral packet for use on Sunday. This DATA SERVICES DEVELOPER will review steps w/pt's family today and provide a Medicaid [facility] radha which will come into play either here (if pt stays and requires shelter care placement rather than psych placement). Recommended next steps: Request addtl. input from Dr Hickman and possible MD to MD if MD available at [facility] to provide consultation on treatment referral. Request another dispatch from [facility] if pt continues w/agitation and combativeness, especially if Dr Hickman recommends. If called, [facility] will need addtl. evidence that there are psychiatric and Substance Use Disorder(IVETH) overlays in pt's presentation requiring detainment and treatment vs s/sx of early onset dementia. DATA SERVICES DEVELOPER team will be following closely. This DATA SERVICES DEVELOPER returns Sunday10/24/17. BALAJI Bullard
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
[2017-10-21 20:07] VITALS: BP 141/98; PULSE 100; RESP 21; TEMP 36.8; O2SAT 99
--- NOTE | 2017-10-22 00:11 | PC.NURSE ---
SHIFT NOTE At start of shift pt is restless in bed, intermittent periods appearing asleep. 1 on 1 sitter at bedside
[2017-10-22 05:18] VITALS: O2SAT 96
[2017-10-22] MEDS: ENOXAPARIN 40 MG/0.4 ML SYRINGE SUBCUT (08:18)
[2017-10-22] MEDS: MULTIVITAMIN 1 TABLET 1 TAB PO (08:18)
[2017-10-22] MEDS: RISPERIDONE 0.5 MG 1 MG SL (08:18)
[2017-10-22] MEDS: PANTOPRAZOLE 40 MG TABLET PO (08:18)
[2017-10-22] MEDS: FOLIC ACID 1 MG TABLET PO (08:18)
[2017-10-22 08:21] VITALS: BP 134/78; PULSE 99; RESP 16; TEMP 37.3; O2SAT 96
--- NOTE | 2017-10-22 09:01 | PT.IPTN ---
Current Diagnoses Metabolic encephalopathy (10/15/17) Physical Therapy Treatment Note M2 PT-IP Current Condition Start: 10/14/17 10:21 Freq: Status: Active Protocol: Document 10/21/17 11:00 RCC (Rec: 10/21/17 11:33 RCC [id number]) Physical Therapy Current Condition Current Condition Evaluation Date 10/19/17 Treatment Diagnosis GLF; ETOH withdrawal; difficulty with walking Onset Date 10/15/17 Precautions Other Precautions falls; can be combative M3 PT-IP Subjective Start: 10/14/17 10:21 Freq: Status: Active Protocol: Document 10/22/17 08:49 RS (Rec: 10/22/17 09:01 RS [id number]) Subjective Physical Therapy Visit Type Type Treatment Note Visit Start Time 08:20 Visit Stop Time 08:49 Total Visit Minutes 29 Number of BUSINESS PARTNER Visits 0 Physical Therapy Visit Comments Patient Comments Pt still speaking quite illogically. Therapy Pain Assessment Pain When Pain Assessed At Rest Pain Present Pain Present Denied Pain M4 PT-IP Mobility and Gait Start: 10/14/17 10:21 Freq: Status: Active Protocol: Document 10/22/17 08:49 RS (Rec: 10/22/17 09:01 RS [id number]) PT-Transfer Assessment Sit to and From Stand Sit to and from Stand Moderate Assistance 2 Person Assistance Use of Upper Extremities Equipment Transfer Assistive Device Gait Belt Front Wheeled Walker Transfers Transfer Destination Chair Transfer Technique Stand Step Pivot Transfer Ability Level of Assist Moderate Assistance 2 Person Assistance Use of Upper Extremities Comments Mobility Comments Pt still needing max cues for all mobility, both verbal and tactile. Pt very distractible, difficult to focus to task. Gait Assessment Gait Gait Assistance Required: Moderate Assistance 2 Person Assist Distance (Feet) (feet) 35 Assistive Devices Assistive Device Gait Belt Gait Deviations General Gait Pattern Ataxic Decreased Stride Length Decreased Feet Clearance Wide Based Gait Factors Limiting Gait Function Factors Limiting Gait Function Decreased Activity Tolerance Difficulty Following Directions Poor Balance Poor Safety Awareness Comments Gait Comments Pt kept letting go of walker or running into it. FWW was removed and PT walked in front of and facing pt with pt's R hand on PT's shoulder, LUE held in guarded position d/t pain. Pt able to take more consistent steps but still highly distractible, lots of cues to attend to walking, often trying to pick debris off floor or grab for objects in hallway. Ultimately able to walk 35 total feet out into cruz and back to chair in room . M5 PT-IP Objective Assessments Start: 10/14/17 10:21 Freq: Status: Active Protocol: Document 10/21/17 11:00 RCC (Rec: 10/21/17 11:33 RCC [id number]) Orientation Orientation/Cognition Level of Alertness Confusional State Gross Range of Motion Upper Extremity ROM Impairments Impaired LUE ROM, holding it toward his midline in sitting but able to use it in standing when holding FWW. M6 PT-IP Treatment Start: 10/14/17 10:21 Freq: Status: Active Protocol: Document 10/20/17 11:13 AB (Rec: 10/20/17 11:58 AB [id number]) Physical Therapy Treatment Education Education Provided Safety M7 PT-IP Assessment and Plan Start: 10/14/17 10:21 Freq: Status: Active Protocol: Document 10/22/17 08:49 RS (Rec: 10/22/17 09:01 RS [id number]) PT Summary Assessment and Plan Potential Rehabilitation Potential Fair Status of Condition at Evaluation Evolving Summary Impairments Strength Balance Coordination Sensation Cognition Bed Mobility Transfers Gait Activity Tolerance Progress Towards Goals Slow Progress due to Medical Issues Slow Progress - Other Assessment Summary Pt seems overly stimulated and does best with as simple verbal cues as possible, does not do well with gestures. Pt able to be redirected but still requiring 2 person assist for all mobility which is far below pt's functional baseline. Continue to recommend SNF rehab. Goals Bed Mobility Goal Standby Assistance Transfer Goal Standby Assistance Gait Goal Standby Assistance Gait Distance 100 Other Goals up/down 16 steps with R rail ascending Days to Meet Goals 5 Frequency of Treatment Frequency Of Treatment Once a Day Treatment Plan Physical Therapy Treatment Plan Bed Mobility Training Transfer Training Gait Training Therapeutic Exercise Balance Retraining Discharge Planning Neuromuscular Re-ed Coordination Retraining Manual Therapy Recommendations To Nursing Amount of Assist Needed 2 Person Assist Discharge Recommendations PT Discharge Recommendations SNF Rehab
--- NOTE | 2017-10-22 09:31 | CM.DPC ---
Addendum entered by BALAJI Parker 10/22/17 14:16: ADD: SW met bedside with pt, Dr. Hickman, pt's mom/DPOA Poornima, and sister. Per Dr. Hickman, pt could benefit from Psych Inpt stay towards improvement in his functioning and stability and does not feel that his current functioning can be attributed to dementia but more underlying cd/mh issues and feels that pt would have a hard time being decisional enough to be voluntary. Dr. Hickman plans to consult with Dr. Painter later this afternoon and will complete her prog consult note towards use in requesting [facility] be dispatched in the morning towards possible Involuntary Placement. Per pt's mom and sister, they spoke with Leonarda from [facility] last night and they are under the understanding that Leonarda states she can likely accept the pt although Leonarda is now on vacation for a week and would not want to accept the patient until she is back from vacation and can do the pt's intake herself. SW discussed that most times Leonarda would want to do a bedside assessment and review clinicals to determine if they can accept the pt and sister acknowledged understanding and would be happy to have SW fax any clinicals needed but thinks Leonarda is already on vacation. SW called Leonarda from [facility] and she confirms she goes on vacation tonight and feels Inpt Psych would be needed/beneficial prior to accepting the pt and she will follow up with the family when she returns on October 29 to determine where pt is located and will do a bedside assessment at that time even if he is in Inpt Psych hospital but confirms she would need to assess him first before final acceptance at their facility. Plan: SW to follow in the morning towards reviewing Dr. Hickman's consult note from today and faxing to the [facility] fax #[phone] towards their review to determine if they will auth Inpt Psych stay. SW to likely call [facility] to request [facility] be dispatched to assess the pt again for Involuntary Placement based further on Dr. Hickman's note and recommendation. Original Note: DCP Cont: Per RN, pt continues to have moments of calmness and agitation and pt was able to ambulate with RN and PT this morning. SW received a message from Dr. Hickman that she would be bedside with the pt today during lunch time, around [phone] for ongoing consultation. RN aware. BRAYDEN faxed Dr. Hickman a few additional notes to review. BRAYDEN called [facility] and was directed to the [facility] Liaison direct number [phone] and fax [phone] and SW discussed pt's status and current recommendation of Psych Inpt hospitalization and DANIELLE Younger kindly faxed the listed [facility] number pt's clinicals for review to begin the process to determine if they will auth Psych Inpt stay for the pt. [facility] confirmed that psych bed Does Not need to be found first but that they will review now to determine if he would be auth'd for Psych placement. CARLOS Curry felt pt could meet criteria for Involuntary placement and if pt is deemed Involuntary there is a chance they could accept the pt. So far [facility] did not feel pt met criteria for Involuntary placement. SW to call today to gather further information from [facility] assessment. Plan: SW to follow closely after Dr. Hickman, Psychiatrist, completes bedside consultation today towards continuing d/c planning recommendations. SW to follow to fax [facility] Dr. Hickman's Consult note from today towards their review to determine if pt will be approved for Inpt Psych placement. Family encouraged to check in with Shayy Bland again today for future placement option. BALAJI Parker
[2017-10-22 10:07] VITALS: O2SAT 96
--- NOTE | 2017-10-22 11:36 | SLP.IPNOTE ---
PAPER TUBE MACHINE OPERATOR spoke with nursing regarding the patient's overall status. PAPER TUBE MACHINE OPERATOR and nursing agreed that the patient has extensive phychological issues that warrant further care, but he is no longer appropiate for continued work with speech therapy due to his behavioral outbursts and related phychological issues. At this time, plan to D/C patient. Please reconsult if able to participate successfully with therapy. No billable service at this time.
[2017-10-22] MEDS: ACETAMINOPHEN 325 MG TABLET 650 MG PO (13:36)
--- NOTE | 2017-10-22 14:53 | PC.NURSE ---
pt somewhat compliantwith meds this am- swallows them whole in applesauce and then chews them up anyway- lengthy discussion with Dr. Hickman. qamar case mgmgnt and family as well as pt.- incontinent of urine x 1 -ambulated with much assist and use of gait belt- felt that walker was too distracting for pt -
--- NOTE | 2017-10-22 15:26 | PM.CN ---
History of Present Illness Chief complaint: found on ground, etoh on board Requesting provider: Jose Maria Calderon Narrative: UPDATED HOSPITAL COURSE: Intermittent agitation over the past several days. Risperidone was given as 0.5mg prn, getting at least daily, then switched to 1mg BID scheduled dose. Continues to be hypertensive at times but VS otherwise WNL. No updated labwork since last visit. Brain MRI obtained with no acute process found. [facility] referral made over the weekend, assessment was that he did not meet involuntary criteria, notes indicate discussion with [facility] regarding options as well as [facility]. INTERVIEW: Patient is agreeable to talk with me today. He mentions several things about someone going over the [place], and references me as a part of that group, seems worried to help me get information that I want but unable to communicate in a way that I can follow. He reports feeling safe and well taking care of, not frightened. When asked him if he has eaten his lunch, which is in front of him and appears have eaten, he looks over the plate and says he has not seen launch but expects it is coming, and that there are some good looking things in front of him. He denies pain or specific physical complaints. He is not able to follow simple directions, asked him to follow my finger with his eyes to test for nice diagnose and he is unable to do so. I asked him today to name few objects, including keys and he is unable to do that today. He is unable to tell me where he is, or to read the date on the board, and when I asked him to read what on the board he states ?I am trying to tell if I can see it?. He denies thoughts of hurting himself or anyone else. I spoke with patient's sister Alejandra, along with social work manager Maria Victoria. Alejandra reports looking into memory care options including [employer] and is encouraged about this. We reviewed recent it evaluation by [facility]. Alejandra states that this is a change from his function even a week ago, that he was talking in a way that made sense previously and that he could follow some directions. She feels that something happened recently, suspects he had a binge drinking episode, ?it's almost like something broke?. Alejandra reports noticing some benefit in the last several days after patient has been on risperidone consistently. Nursing staff report response to risperidone, the patient seems a little calmer and easier to engage since on schedule dosing. He however continues to have episodes of agitation. [facility] Medical History Alcohol abuse (Chronic) Dementia (Chronic) GERD (gastroesophageal reflux disease) (Chronic) Surgical History Status post lateral meniscus repair (Chronic) H/O inguinal hernia repair (Resolved) Social History household members: none Smoking Status: Former smoker alcohol intake: current substance use type: does not use Meds Home Medications Medication Instructions Recorded Confirmed Type acetaminophen [Tylenol Extra 1,000 mg PO BID PRN 09/28/17 10/14/17 History Strength] coconut oil 1 cap PO DAILY 09/28/17 10/14/17 History omeprazole 40 mg PO DAILY 09/28/17 10/14/17 History Allergies Allergy/AdvReac Type Severity Reaction Status Date / Time morphine [MORPHINE] Allergy Severe iv caused Verified 10/13/17 13:51 red line Review of Systems Review of Systems unobtainable due to mental condition Exam Vital Signs (past 8 hours): - 10/22/17 08:21 10/22/17 10:07 Temperature 99.1 F Pulse Rate 99 H Respiratory Rate 16 Blood Pressure 134/78 H Pulse Oximetry 96 96 Oxygen Delivery Method Room Air Oxygen Flow Rate 0 Narrative Exam Narrative: MENTAL STATUS EXAM: Appearance: thin, fair-skinned male with nelson hair, wearing hospital garb Behavior: some psychomotor slowing, sitting up in chair, no tremor observed Speech: fluent, soft volume at times, switches words with similar sounding words at times, interruptible, nonsensical at times Mood: ?fine? Affect: incongruent with content, anxious, constricted Thought process: disorganized, tangential, perseverative, possibly responding to internal stimuli Thought content: unable to fully assessed based on altered mental status, no clear evidence of SI or HI, does not endorse hallucinations to this provider but has mentioned to others, likely paranoia Memory: Impaired, unable to formally test due to cognitive deficits & mental status Attention: Poor Insight: Poor Judgment: Poor Objective Imaging MRI - head: Radiologist's impression: 10/18/17 PROCEDURE: MR HEAD/BRAIN WO CON INDICATIONS: mental status change TECHNIQUE: Noncontrast axial T1 spin echo, axial T2 fast spin echo, sagittal and axial FLAIR, coronal T2 fast spin echo, axial gradient echo, axial diffusion and ADC through the brain. COMPARISON: [facility], , MR ANGIO HEAD WO CON, 10/18/2017, 15:41. [facility], CT, CT HEAD/BRAIN WO CON, 10/13/2017, 14:25. FINDINGS: Image quality: Excellent. CSF Spaces: Basal cisterns are patent. No extra-axial fluid collections. Ventricles are normal in size and shape. Brain: No intracranial masses or hemorrhage. Nelson/white matter interface is normal. Brainstem appears normal. Diffusion-weighted images demonstrate no acute ischemic insult. No chronic ischemic insults. Normal intravascular flow voids are present. Bilateral chronic subdural hygromas, unchanged. Skull and face: Calvarium has normal marrow signal. Orbits appear normal. Sinuses: Sinuses and mastoids are clear. IMPRESSION: 1. No acute intracranial process. 2. Chronic bilateral subdural hygromas. Dictated by: Ivonne Melvin M.D. on 10/18/2017 at 16:37 Approved by: Ivonne Melvin M.D. on 10/18/2017 at 16:40 10/18/17 PROCEDURE: MR ANGIO HEAD WO CON INDICATIONS: ALTERED MENTAL STATUS TECHNIQUE: Noncontrast axial 3-D [id number] MR angiogram, with 3-dimensional maximum intensity projection (MIP) reformats of the internal carotid arteries and posterior circulation then performed. COMPARISON: [facility], , MR HEAD/BRAIN WO CON, 10/18/2017, 15:41. [facility], CT, CT HEAD/BRAIN WO CON, 10/13/2017, 14:25. FINDINGS: Image quality: Excellent. Anterior circulation: Intracranial internal carotid arteries demonstrate normal size and intraluminal flow signal. The flow within the paired anterior cerebral arteries is normal and symmetric. The flow within the middle cerebral arteries is normal and symmetric. The anterior communicating artery is seen. No stenoses, occlusions, or aneurysms. Posterior circulation: Visualized portions of the vertebral arteries demonstrate normal caliber, and join to form a normal appearing basilar artery. The flow within the posterior cerebral arteries is normal and symmetric. No stenoses, occlusions, or aneurysms. Chronic bilateral subdural hygromas. IMPRESSION: 1. No areas of hemodynamically significant stenosis, vascular occlusion or aneurysmal dilation within the anterior circulation. 2. No areas of hemodynamically significant stenosis, vascular occlusion or aneurysmal dilation within the posterior circulation. Dictated by: Ivonne Melvin M.D. on 10/18/2017 at 16:40 Approved by: Ivonne Melvin M.D. on 10/18/2017 at 16:42 Labs Result Diagrams: 10/15/17 04:39 10/15/17 04:39 Assessment & Plan Plan: Assessment/Plan Narrative: ASSESSMENT: Bradly Pierson is a 57-year-old male with known history of dementia (Alzheimer's versus frontotemporal) admitted after found down, treated for presumed alcohol withdrawal. His initial clinical course was not typical for alcohol withdrawal, requiring very little lorazepam. His current presentation is a significant and acute change from his baseline, which is less typical for a dementia process outside of a vascular change. He is certainly disorganized, unable to sustain attention or follow commands. His presentation is consistent with delirium, and I want to make sure any medical etiology that could contribute to an acute change has been ruled out. Urine drug screen was not done on admission, I suspect urine was difficult to obtain, and I wonder about any other substance use in addition to alcohol. MRI & MRA did not show a causative factor for his symptoms, no stroke or other lesion. In his current state, patient is unable to appreciate need for medical care or risks of not getting it, and unable to take care of activities of daily living, which per family is an acute change in function from just 2 weeks ago. Medical cause of symptoms has not yet been identified. He appears paranoid, he is certainly disorganized & intermittently agitated, and he appears to be responding to risperidone. I recommend increased dose of risperidone. Additionally, it may be worth revisiting involuntary referral with DCR. He does have a known diagnosis of Alzheimer?s Disease, however, that does not explain his current symptoms that are an acute change from his baseline. I think there may be a psychiatric disorder exacerbated by recent medical illness (alcohol withdrawal, rhabdomyolysis) which may respond to treatment, and that he may meet criteria for grave disability based on his disorganized behavior in the context of worsening psychiatric symptoms. I feel that patient is unable to consent to voluntary treatment in his current condition, and feel that most facilities would not be willing to consider a voluntary admission. DIAGNOSES: Delirium of unknown etiology Psychosis Moderate to severe dementia (Alzheimer?s vs. frontotemporal) RECOMMENDATIONS: - Increase risperidone to 2mg PO BID - EKG for QTc, check for prolongation in the context of risperidone - Labwork to include: TSH, folate, B12; consider syphilis & HIV screen - consider obtaining records from Dr. Kyaw Koenig, psychiatrist in [facility], should have at least one visit on file prior to 2017 (for more psychiatric history) - Delirium precautions as you are doing, including normalizing sleep/wake cycle as much as possible, frequent re-orientation, access to glasses if needed, maintain hydration & nutrition status as possible, avoid medicaitons which can worsen delirium (particularly benzodiazepines, opioids, anticholinergics) - Consider re-referral to [facility]CR to consider involuntary treatment - thank you for involving me in this patient's care. I will continue to follow the patient each day I am here, which this week is , Wed, Fri. Please contact my office at [phone] with any acute questions or concerns. Time Spent With Patient Time with patient: 25 - 35 minutes
--- NOTE | 2017-10-22 15:30 | P.CONS_ITS ---
History of Present Illness Chief complaint: found on ground, etoh on board Requesting provider: Jose Maria Calderon Narrative: UPDATED HOSPITAL COURSE: Intermittent agitation over the past several days. Risperidone was given as 0.5mg prn, getting at least daily, then switched to 1mg BID scheduled dose. Continues to be hypertensive at times but VS otherwise WNL. No updated labwork since last visit. Brain MRI obtained with no acute process found. DCR referral made over the weekend, assessment was that he did not meet involuntary criteria, notes indicate discussion with [facility] regarding options as well as [place]. INTERVIEW: Patient is agreeable to talk with me today. He mentions several things about someone [place] the [place], and references me as a part of that group, seems worried to help me get information that I want but unable to communicate in a way that I can follow. He reports feeling safe and well taking care of, not frightened. When asked him if he has eaten his lunch, which is in front of him and appears have eaten, he looks over the plate and says he has not seen launch but expects it is coming, and that there are some good looking things in front of him. He denies pain or specific physical complaints. He is not able to follow simple directions, asked him to follow my finger with his eyes to test for nice diagnose and he is unable to do so. I asked him today to name few objects, including keys and he is unable to do that today. He is unable to tell me where he is, or to read the date on the board, and when I asked him to read what on the board he states ?I am trying to tell if I can see it?. He denies thoughts of hurting himself or anyone else. I spoke with patient's sister Alejandra, along with social services aide Maria Victoria. Alejandra reports looking into memory care options including [place] and is encouraged about this. We reviewed recent it evaluation by DCR. Alejandra states that this is a change from his function even a week ago, that he was talking in a way that made sense previously and that he could follow some directions. She feels that something happened recently, suspects he had a binge drinking episode, ?it's almost like something broke?. Alejandra reports noticing some benefit in the last several days after patient has been on risperidone consistently. Nursing staff report response to risperidone, the patient seems a little calmer and easier to engage since on schedule dosing. He however continues to have episodes of agitation. [facility]LY [facility] Medical History Alcohol abuse (Chronic) Dementia (Chronic) GERD (gastroesophageal reflux disease) (Chronic) Surgical History Status post lateral meniscus repair (Chronic) H/O inguinal hernia repair (Resolved) Social History household members: none Smoking Status: Former smoker alcohol intake: current substance use type: does not use Meds Home Medications Medication Instructions Recorded Confirmed Type acetaminophen [Tylenol Extra 1,000 mg PO BID PRN 09/28/17 10/14/17 History Strength] coconut oil 1 cap PO DAILY 09/28/17 10/14/17 History omeprazole 40 mg PO DAILY 09/28/17 10/14/17 History Allergies Allergy/AdvReac Type Severity Reaction Status Date / Time morphine [MORPHINE] Allergy Severe iv caused Verified 10/13/17 13:51 red line Review of Systems Review of Systems unobtainable due to mental condition Exam Vital Signs (past 8 hours): - 10/22/17 08:21 10/22/17 10:07 Temperature 99.1 F Pulse Rate 99 H Respiratory Rate 16 Blood Pressure 134/78 H Pulse Oximetry 96 96 Oxygen Delivery Method Room Air Oxygen Flow Rate 0 Narrative Exam Narrative: MENTAL STATUS EXAM: Appearance: thin, fair-skinned male with nelson hair, wearing hospital garb Behavior: some psychomotor slowing, sitting up in chair, no tremor observed Speech: fluent, soft volume at times, switches words with similar sounding words at times, interruptible, nonsensical at times Mood: ?fine? Affect: incongruent with content, anxious, constricted Thought process: disorganized, tangential, perseverative, possibly responding to internal stimuli Thought content: unable to fully assessed based on altered mental status, no clear evidence of SI or HI, does not endorse hallucinations to this provider but has mentioned to others, likely paranoia Memory: Impaired, unable to formally test due to cognitive deficits & mental status Attention: Poor Insight: Poor Judgment: Poor Objective Imaging MRI - head: Radiologist's impression: 10/18/17 PROCEDURE: MR HEAD/BRAIN WO CON INDICATIONS: mental status change TECHNIQUE: Noncontrast axial T1 spin echo, axial T2 fast spin echo, sagittal and axial FLAIR, coronal T2 fast spin echo, axial gradient echo, axial diffusion and ADC through the brain. COMPARISON: [facility], , MR ANGIO HEAD WO CON, 10/18/2017, 15:41. [facility], CT, CT HEAD/BRAIN WO CON, 10/13/2017, 14:25. FINDINGS: Image quality: Excellent. CSF Spaces: Basal cisterns are patent. No extra-axial fluid collections. Ventricles are normal in size and shape. Brain: No intracranial masses or hemorrhage. Nelosn/white matter interface is normal. Brainstem appears normal. Diffusion-weighted images demonstrate no acute ischemic insult. No chronic ischemic insults. Normal intravascular flow voids are present. Bilateral chronic subdural hygromas, unchanged. Skull and face: Calvarium has normal marrow signal. Orbits appear normal. Sinuses: Sinuses and mastoids are clear. IMPRESSION: 1. No acute intracranial process. 2. Chronic bilateral subdural hygromas. Dictated by: Ivonne Melvin M.D. on 10/18/2017 at 16:37 Approved by: Ivonne Melvin M.D. on 10/18/2017 at 16:40 10/18/17 PROCEDURE: MR ANGIO HEAD WO CON INDICATIONS: ALTERED MENTAL STATUS TECHNIQUE: Noncontrast axial 3-D [id number] MR angiogram, with 3-dimensional maximum intensity projection (MIP) reformats of the internal carotid arteries and posterior circulation then performed. COMPARISON: [facility], , MR HEAD/BRAIN WO CON, 10/18/2017, 15:41. [facility], CT, CT HEAD/BRAIN WO CON, 10/13/2017, 14:25. FINDINGS: Image quality: Excellent. Anterior circulation: Intracranial internal carotid arteries demonstrate normal size and intraluminal flow signal. The flow within the paired anterior cerebral arteries is normal and symmetric. The flow within the middle cerebral arteries is normal and symmetric. The anterior communicating artery is seen. No stenoses, occlusions , or aneurysms. Posterior circulation: Visualized portions of the vertebral arteries demonstrate normal caliber, and join to form a normal appearing basilar artery. The flow within the posterior cerebral arteries is normal and symmetric. No stenoses, occlusions, or aneurysms. Chronic bilateral subdural hygromas. IMPRESSION: 1. No areas of hemodynamically significant stenosis, vascular occlusion or aneurysmal dilation within the anterior circulation. 2. No areas of hemodynamically significant stenosis, vascular occlusion or aneurysmal dilation within the posterior circulation. Dictated by: Ivonne Melvin M.D. on 10/18/2017 at 16:40 Approved by: Ivonne Melvin M.D. on 10/18/2017 at 16:42 Labs Result Diagrams: 10/15/17 04:39 10/15/17 04:39 Assessment & Plan Plan: Assessment/Plan Narrative: ASSESSMENT: Bradly Pierson is a 57-year-old male with known history of dementia (Alzheimer's versus frontotemporal) admitted after found down, treated for presumed alcohol withdrawal. His initial clinical course was not typical for alcohol withdrawal , requiring very little lorazepam. His current presentation is a significant and acute change from his baseline, which is less typical for a dementia process outside of a vascular change. He is certainly disorganized, unable to sustain attention or follow commands. His presentation is consistent with delirium, and I want to make sure any medical etiology that could contribute to an acute change has been ruled out. Urine drug screen was not done on admission , I suspect urine was difficult to obtain, and I wonder about any other substance use in addition to alcohol. MRI & MRA did not show a causative factor for his symptoms, no stroke or other lesion. In his current state, patient is unable to appreciate need for medical care or risks of not getting it, and unable to take care of activities of daily living, which per family is an acute change in function from just 2 weeks ago. Medical cause of symptoms has not yet been identified. He appears paranoid, he is certainly disorganized & intermittently agitated, and he appears to be responding to risperidone. I recommend increased dose of risperidone. Additionally, it may be worth revisiting involuntary referral with DCR. He does have a known diagnosis of Alzheimer?s Disease, however, that does not explain his current symptoms that are an acute change from his baseline. I think there may be a psychiatric disorder exacerbated by recent medical illness (alcohol withdrawal, rhabdomyolysis) which may respond to treatment, and that he may meet criteria for grave disability based on his disorganized behavior in the context of worsening psychiatric symptoms. I feel that patient is unable to consent to voluntary treatment in his current condition, and feel that most facilities would not be willing to consider a voluntary admission. DIAGNOSES: Delirium of unknown etiology Psychosis Moderate to severe dementia (Alzheimer?s vs. frontotemporal) RECOMMENDATIONS: - Increase risperidone to 2mg PO BID - EKG for QTc, check for prolongation in the context of risperidone - Labwork to include: TSH, folate, B12; consider syphilis & HIV screen - consider obtaining records from Dr. Kyaw Koenig, psychiatrist in [facility], should have at least one visit on file prior to 2017 (for more psychiatric history) - Delirium precautions as you are doing, including normalizing sleep/wake cycle as much as possible, frequent re-orientation, access to glasses if needed, maintain hydration & nutrition status as possible, avoid medicaitons which can worsen delirium (particularly benzodiazepines, opioids, anticholinergics) - Consider re-referral to DCR to consider involuntary treatment - thank you for involving me in this patient's care. I will continue to follow the patient each day I am here, which this week is , Wed, Fri. Please contact my office at [phone] with any acute questions or concerns. Time Spent With Patient Time with patient: 25 - 35 minutes
[2017-10-22 16:28] VITALS: BP 137/73; PULSE 94; RESP 19; TEMP 36.4; O2SAT 98
--- NOTE | 2017-10-22 16:37 | PC.NURSE ---
Addendum entered by Madison Mix R.N. 10/22/17 22:00: Pt continues to report need to urinate. This attempt ambulated pt into the bathroom. Pt disoriented and attempted to put hands into toilet. Multiple attempts to get pt to turn around a sit. Agitated with repeated instructions. Finally able to sit and urinate, however missing the toilet and urinated on the floor. Pericare, clothing and brief change. Two person assist back to bed. Bed alarm on. Original Note: Addendum entered by Madison Mix R.N. 10/22/17 21:04: Pt attempting to get out of bed. States I need to piss. Attempt to assist pt to bsc, pt became agitated with cueing. immigration guard in room. Pt sitting on the commode. Unable to redirect and void. Pt leaning all the way forward reaching for the ground. Pt 2 person max assist back to bed because of inability to cue. Sitting up in bed. Bed alarm on. Original Note: Addendum entered by Madison Mix R.N. 10/22/17 18:37: Two person assist up to bedside commode. Pt leaning forward, reaching for items on the floor. Pt unable to comprehend commode and urination. Return to bed. Bed alarm on. Original Note: Addendum entered by Madison Mix R.N. 10/22/17 18:10: Pt able to take short nap after returning to bed. Awake. Brief dry. Unable to appropriately respond to question of need to urinate. Set up for meal. Pt difficulty following cues. Placing food items in pt hand. Eating slowly, however easily distracted. Pt making statements about his father, however mostly unable to express full thought. Pt becomes tearful. Slumping forward, sobbing softly, followed by increasing restlessness. Bed alarm on. Original Note: Restless in chair. Repeatedly reaching for the floor and then attempting to stand up. Verbal responses mostly not related to questions. Assist into bed. Brief dry. Bed alarm on.
--- NOTE | 2017-10-22 16:37 | PM.PN.1 ---
Subjective Date Patient Seen: 10/22/17 Interval history: Patient with improvement in agitation since Risperdal dose was increased to 1 mg b.i.d.. Exam Vital Signs (past 8 hours): - 10/22/17 10:07 10/22/17 16:28 Temperature 97.6 F Pulse Rate 94 H Respiratory Rate 19 Blood Pressure 137/73 H Pulse Oximetry 96 98 Oxygen Delivery Method Room Air Oxygen Flow Rate 0 Narrative Exam Narrative: He is alert sitting in chair. Completely disorganized thought. Unable to answer simple questions or follow simple commands. Seems to be picking at something on the floor. Objective Labs Result Diagrams: 10/15/17 04:39 10/15/17 04:39 Assessment & Plan Plan: Assessment/Plan Narrative: 1. Encephalopathy of unknown etiology 2. Acute psychosis 3. Moderate to severe dementia, Alzheimer's versus frontotemporal 4. Alcohol dependency Appreciate Psychiatry input from Dr. Hickman. The agitation has improved with increasing Risperdal dose. Ordered further increase in Risperdal to 2 mg twice daily per Dr. Hickman as recommendation. He did have a baseline EKG back in July which showed normal rhythm and normal QTC interval. Ordered repeat blood will work for CBC, chemistries as well as screening TSH, folate and B12. As noted his brain MRI/MRA were unrevealing. Vitals have been stable without any fever. Await repeat [facility] evaluation for involuntary inpatient psychiatric admission. Family also looking in to Memory Care facilities. Patient is stable for discharge whenever appropriate placement is found. Quality VTE Deep Vein Thrombosis/Pulmonary Embolism Present on Admission: No
--- NOTE | 2017-10-22 16:40 | P.PN_ITS ---
Subjective Date Patient Seen: 10/22/17 Interval history: Patient with improvement in agitation since Risperdal dose was increased to 1 mg b.i.d.. Exam Vital Signs (past 8 hours): - 10/22/17 10:07 10/22/17 16:28 Temperature 97.6 F Pulse Rate 94 H Respiratory Rate 19 Blood Pressure 137/73 H Pulse Oximetry 96 98 Oxygen Delivery Method Room Air Oxygen Flow Rate 0 Narrative Exam Narrative: He is alert sitting in chair. Completely disorganized thought. Unable to answer simple questions or follow simple commands. Seems to be picking at something on the floor. Objective Labs Result Diagrams: 10/15/17 04:39 10/15/17 04:39 Assessment & Plan Plan: Assessment/Plan Narrative: 1. Encephalopathy of unknown etiology 2. Acute psychosis 3. Moderate to severe dementia, Alzheimer's versus frontotemporal 4. Alcohol dependency Appreciate Psychiatry input from Dr. Hickman. The agitation has improved with increasing Risperdal dose. Ordered further increase in Risperdal to 2 mg twice daily per Dr. Hickman as recommendation. He did have a baseline EKG back in July which showed normal rhythm and normal QTC interval. Ordered repeat blood will work for CBC, chemistries as well as screening TSH, folate and B12. As noted his brain MRI/MRA were unrevealing. Vitals have been stable without any fever. Await repeat [facility] evaluation for involuntary inpatient psychiatric admission. Family also looking in to Memory Care facilities. Patient is stable for discharge whenever appropriate placement is found. Quality VTE Deep Vein Thrombosis/Pulmonary Embolism Present on Admission: No
[2017-10-22] MEDS: RISPERIDONE 0.5 MG 2 MG SL (17:46)
[2017-10-22 20:03] LABS: Add Manual Diff / Slide Review NO; Basophils Percent Auto 0.5 % (0-2); Eosinophils Percent Auto 1.7 % (2-4); Hematocrit 41.3 % (41-53); Hemoglobin 14.5 g/dL (13.5-17.5); Mean Corpuscular HGB Conc 35.1 % (30-36); Mean Corpuscular Hemoglobin 33.2 PG (26-34); Mean Corpuscular Volume 94.7 fL (80-100); Monocytes Percent Auto 9.3 % (3-14); Neutrophils Absolute Auto 4300 /uL (3000-5900); Neutrophils Percent Auto 67.5 % (50-75); Platelet Count 281 X10^3/uL (150-400); Red Blood Cell Count 4.36 X10^6/uL (4.5-5.9); Red Cell Distribution Width 12.4 % (11.6-14.8); White Blood Cell Count 6.4 X10^3/uL (4.5-11.0)
[2017-10-22 20:12] LABS: Alanine Aminotransferase 45 IU/L (21-72); Albumin 4.3 g/dL (3.5-5.0); Albumin Globulin Ratio 1.5 (1.0-2.8); Alkaline Phosphatase 80 U/L (38-126); Aspartate Aminotransferase 30 IU/L (17-59); Bilirubin Total 0.5 mg/dL (0.2-1.3); Blood Urea Nitrogen 16 mg/dL (9-20); Calcium 9.5 mg/dL (8.4-10.2); Carbon Dioxide 32 mmol/L (22-32); Chloride 101 mmol/L (98-107); Estimated Glomerular Filt Rate > 60.0 mL/min (>60); Globulin 2.8 g/dL (1.7-4.1); Glucose 129 mg/dL (70-100); HEMOLYSIS < 15 (0-50); Potassium 3.6 mmol/L (3.4-5.1); Sodium 140 mmol/L (137-145); Total Protein 7.1 g/dL (6.3-8.2)
[2017-10-22 21:18] LABS: Folate 18.9 ng/mL (2.76-20.0); Vitamin B12 > 1000 pg/mL (239-931)
[2017-10-23 04:00] VITALS: BP 124/94; PULSE 80; RESP 18; TEMP 36.8; O2SAT 97
[2017-10-23 04:10] VITALS: O2SAT 96
[2017-10-23] MEDS: PANTOPRAZOLE 40 MG TABLET PO (06:40)
--- NOTE | 2017-10-23 06:56 | PC.NURSE ---
Patient was able to sleep for few hours early in shift, was restless in the bed, but pleasant, talkative and laughing, did not make sense, remains somewhat guarded and suspicious. RYANE noted to be weak, patient holding it to torso and unable to extend arm without wincing. Can't explain how it feels or follow directions.
[2017-10-23] MEDS: ACETAMINOPHEN 325 MG TABLET 650 MG PO (07:19)
[2017-10-23] MEDS: RISPERIDONE 0.5 MG 2 MG SL ×2 (07:20→17:41)
[2017-10-23 08:01] VITALS: BP 126/82; PULSE 97; RESP 18; TEMP 36.6; O2SAT 98
[2017-10-23 08:55] VITALS: O2SAT 98
--- NOTE | 2017-10-23 10:08 | PC.NURSE ---
Addendum entered by Benedicto Dunaway R.N. 10/23/17 15:17: Bladder scan performed showing 750 ML. Unable to direct pt to void. Called to MD. Reported bladder scan performed and amount shown. MD instructs continue to monitor. Original Note: Addendum entered by Benedicto Dunaway R.N. 10/23/17 12:35: Pt intermittently attempting to sit up and putting legs over edge of bed. From 1115 to 1230 pt is restless and attempting to sit up, holding genitals. Provided simple instruction to pt and attempt to toilet during this time. Was able to get pt to BSC once but pt became agitated, stood up, and transferred back to bed. Pt then stated he needed to go to the bathroom. Attempted to ambulate pt to BR but unable to direct him so placed back to bed. Dr. Ordaz rounded during this time and attempted to assist with getting pt OOB to BR. Reported pt has not voided since 1015 last night. No new orders. Family to bedside. Pt states he needs to use the bathroom at about 1240. After about 20 minutes, able to direct pt to BR with 2PA, gait belt, and yellow socks. Pt remained in the BR requiring constant cueing to stay seated on the toilet and to urinate. Pt unable to urinate and was then transferred from BR to chair after about an hour. Chair alarm on and family at bedside. Dr. Hickman rounded approx 1300. Reported pt confusion and difficulty directing and difficulty voiding. Dr. Hickman reports will touch base with CM for d/c planning. Original Note: Pt noted to have both legs over the edge of the bed but laying back. Asked pt where he would like to go. I don't know. I just don't know. Pt with bewildered look on his face. Reoriented pt to environment/situation. Explain role of staff members. Pt looking around room saying I don't know. Provided emotional support. Asked pt if he needed to use the bathroom. He is unsure. Assisted to sitting position at edge of bed and placed gait belt. Explained simply that we would walk with him to BR. Unable to direct pt to stand at bedside. Assisted back to lying position and provided warm blanket. Offered food/drink and hygiene care. Pt declined at this time. Bed alarm on.
--- NOTE | 2017-10-23 11:52 | PT.IPTN ---
Current Diagnoses Metabolic encephalopathy (10/15/17) Physical Therapy Treatment Note M2 PT-IP Current Condition Start: 10/14/17 10:21 Freq: Status: Active Protocol: Document 10/21/17 11:00 RCC (Rec: 10/21/17 11:33 RCC [id number]) Physical Therapy Current Condition Current Condition Evaluation Date 10/19/17 Treatment Diagnosis GLF; ETOH withdrawal; difficulty with walking Onset Date 10/15/17 Precautions Other Precautions falls; can be combative M3 PT-IP Subjective Start: 10/14/17 10:21 Freq: Status: Active Protocol: Document 10/23/17 11:52 GGD (Rec: 10/23/17 11:52 GGD [id number]) Subjective Recommendations To Nursing Amount of Assist Needed 2 Person Assist Discharge Recommendations PT Discharge Recommendations SNF Rehab
--- NOTE | 2017-10-23 15:33 | PM.PN.1 ---
Subjective Date Patient Seen: 10/23/17 Time Patient Seen: 12:30 Interval history: Patient continued to be restless at times and needs frequent redirection. Nursing also has been trying to get him to go to the bathroom all morning. He has not been able to urinate. Exam Vital Signs (past 8 hours): - 10/23/17 08:01 10/23/17 08:55 Temperature 98 F Pulse Rate 97 H Respiratory Rate 18 Blood Pressure 126/82 H Pulse Oximetry 98 98 Oxygen Delivery Method Room Air Oxygen Flow Rate 0 Narrative Exam Narrative: General: Middle-age man who is currently lying in bed comfortably Lungs: Clear to auscultation bilaterally Heart: Regular rhythm, no murmur appreciated Abdomen: Soft, nontender Extremities: No pitting edema Neuro: He moves all his extremities. He is restless at times. He is able to make a few simple word conversations. Sometimes his speech does not make sense. Objective Labs Result Diagrams: 10/22/17 19:48 10/22/17 19:48 Labs: Laboratory Results - last 24 hr 10/22/17 10/22/17 19:48 19:48 WBC 6.4 RBC 4.36 L Hgb 14.5 Hct 41.3 MCV 94.7 MCH 33.2 MCHC 35.1 RDW 12.4 Plt Count 281 Neut % (Auto) 67.5 Lymph % (Auto) 21.0 L [place] % (Auto) 9.3 Eos % (Auto) 1.7 L Baso % (Auto) 0.5 Neut # (Auto) 4300 Sodium 140 Potassium 3.6 Chloride 101 Carbon Dioxide 32 BUN 16 Creatinine 0.80 Estimated GFR > 60.0 BUN/Creatinine Ratio 20.0 Glucose 129 H Calcium 9.5 Total Bilirubin 0.5 AST 30 ALT 45 Alkaline Phosphatase 80 Total Protein 7.1 Albumin 4.3 Globulin 2.8 Albumin/Globulin Ratio 1.5 Vitamin B12 > 1000 H Folate 18.9 Assessment & Plan Plan: Assessment/Plan Narrative: 1. Encephalopathy of unknown etiology 2. Acute psychosis 3. Moderate to severe dementia, Alzheimer's versus frontotemporal 4. Alcohol dependency Appreciate Psychiatry input from Dr. Hickman. The agitation has improved with increasing Risperdal dose. Continue Risperdal 2 mg twice daily per Dr. Hickman as recommendation. EKG did not show prolonged QT. As noted his brain MRI/MRA were unrevealing. Vitals have been stable without any fever. Await repeat [facility] evaluation for involuntary inpatient psychiatric admission. Family also looking in to Memory Care facilities. Patient is stable for discharge whenever appropriate placement is found. manager operations and procurement is working on placement. Quality VTE Deep Vein Thrombosis/Pulmonary Embolism Present on Admission: No
--- NOTE | 2017-10-23 15:38 | P.PN_ITS ---
Subjective Date Patient Seen: 10/23/17 Time Patient Seen: 12:30 Interval history: Patient continued to be restless at times and needs frequent redirection. Nursing also has been trying to get him to go to the bathroom all morning. He has not been able to urinate. Exam Vital Signs (past 8 hours): - 10/23/17 08:01 10/23/17 08:55 Temperature 98 F Pulse Rate 97 H Respiratory Rate 18 Blood Pressure 126/82 H Pulse Oximetry 98 98 Oxygen Delivery Method Room Air Oxygen Flow Rate 0 Narrative Exam Narrative: General: Middle-age man who is currently lying in bed comfortably Lungs: Clear to auscultation bilaterally Heart: Regular rhythm, no murmur appreciated Abdomen: Soft, nontender Extremities: No pitting edema Neuro: He moves all his extremities. He is restless at times. He is able to make a few simple word conversations. Sometimes his speech does not make sense. Objective Labs Result Diagrams: 10/22/17 19:48 10/22/17 19:48 Labs: Laboratory Results - last 24 hr 10/22/17 10/22/17 19:48 19:48 WBC 6.4 RBC 4.36 L Hgb 14.5 Hct 41.3 MCV 94.7 MCH 33.2 MCHC 35.1 RDW 12.4 Plt Count 281 Neut % (Auto) 67.5 Lymph % (Auto) 21.0 L [place] % (Auto) 9.3 Eos % (Auto) 1.7 L Baso % (Auto) 0.5 Neut # (Auto) 4300 Sodium 140 Potassium 3.6 Chloride 101 Carbon Dioxide 32 BUN 16 Creatinine 0.80 Estimated GFR > 60.0 BUN/Creatinine Ratio 20.0 Glucose 129 H Calcium 9.5 Total Bilirubin 0.5 AST 30 ALT 45 Alkaline Phosphatase 80 Total Protein 7.1 Albumin 4.3 Globulin 2.8 Albumin/Globulin Ratio 1.5 Vitamin B12 > 1000 H Folate 18.9 Assessment & Plan Plan: Assessment/Plan Narrative: 1. Encephalopathy of unknown etiology 2. Acute psychosis 3. Moderate to severe dementia, Alzheimer's versus frontotemporal 4. Alcohol dependency Appreciate Psychiatry input from Dr. Hickman. The agitation has improved with increasing Risperdal dose. Continue Risperdal 2 mg twice daily per Dr. Hickman as recommendation. EKG did not show prolonged QT. As noted his brain MRI/ MRA were unrevealing. Vitals have been stable without any fever. Await repeat [facility] evaluation for involuntary inpatient psychiatric admission. Family also looking in to Memory Care facilities. Patient is stable for discharge whenever appropriate placement is found. resident services manager is working on placement. Quality VTE Deep Vein Thrombosis/Pulmonary Embolism Present on Admission: No
--- NOTE | 2017-10-23 16:13 | CM.DPC ---
DCP/continued: E BUSINESS SPECIALIST reviewed all notes. Last note from [facility] requesting CM team attempt placement for patient. On 10-22-17 [facility] note reports patient not detainable. Therefore, placed call to [facility] at [phone] spoke with Jaswant. E BUSINESS SPECIALIST requested that they review for admit and/or suggestions on safe d/c plan. Jaswant agreed to review. E BUSINESS SPECIALIST asked STEPHEN/Carisa to fax clinical for review. In addition, spoke with Dr. Hickman this afternoon. She is in agreement with review from [facility] but feels if they do not accept that [facility] called again for detain[facility]. E BUSINESS SPECIALIST agreed. As of 4:00pm have not heard back from [facility]. Referral/clinical sent around 1:30pm. E BUSINESS SPECIALIST to follow up in tomorrow with [facility] and [facility]. Attempted to meet with patient's family today. Unfortunately when E BUSINESS SPECIALIST arrived family had stepped out. Provided RN with update and she will notify family. In addition, spoke with Elisa at [facility], they will not consider acceptance until patient has been treated at [facility]. Leonarda will be back at [facility] next if needed. P: Pending. [facility] reviewing. If unable to accept, [facility] to return for detainment evaluation. BALAJI Crook
--- NOTE | 2017-10-23 16:49 | PT.IPTN ---
Current Diagnoses Metabolic encephalopathy (10/15/17) Physical Therapy Treatment Note M2 PT-IP Current Condition Start: 10/14/17 10:21 Freq: Status: Active Protocol: Document 10/21/17 11:00 RCC (Rec: 10/21/17 11:33 RCC [id number]) Physical Therapy Current Condition Current Condition Evaluation Date 10/19/17 Treatment Diagnosis GLF; ETOH withdrawal; difficulty with walking Onset Date 10/15/17 Precautions Other Precautions falls; can be combative M3 PT-IP Subjective Start: 10/14/17 10:21 Freq: Status: Active Protocol: Document 10/23/17 15:30 AB (Rec: 10/23/17 16:48 AB [id number]) Subjective Physical Therapy Visit Type Type Treatment Note Visit Start Time 15:30 Visit Stop Time 15:56 Total Visit Minutes 26 Number of POCKET SETTER Visits 0 Therapy Pain Assessment Pain When Pain Assessed At Rest Pain Present Pain Present Pain Reported Location Left Shoulder Scale Used unable to state pain scale Pain Behaviors Holding Area M4 PT-IP Mobility and Gait Start: 10/14/17 10:21 Freq: Status: Active Protocol: Document 10/23/17 15:30 AB (Rec: 10/23/17 16:48 AB [id number]) PT-Transfer Assessment Sit to and From Stand Sit to and from Stand Maximum Assistance 2 Person Assistance Use of Upper Extremities Equipment Transfer Assistive Device None Orthotic/Prosthetic Devices or Brace: No Transfers Transfer Destination Chair Transfer Technique pt ambulated from toilet to chair MODULAR SET CREW MEMBER x 3 Transfer Ability Level of Assist Maximum Assistance 2 Person Assistance Use of Upper Extremities Gait Assessment Gait Gait Assistance Required: Maximum Assistance 2 Person Assist Distance (Feet) (feet) 8 Able to Maintain Weight Bearing Status Yes During Gait Assistive Devices Assistive Device None Gait Belt Orthotic/Prosthetic Devices or Brace: No Gait Deviations General Gait Pattern Decreased Stride Length Decreased Feet Clearance Flexed Trunk Factors Limiting Gait Function Factors Limiting Gait Function Decreased Activity Tolerance Decreased Strength Difficulty Following Directions Pain Poor Balance Poor Safety Awareness Comments Gait Comments pt requires max cues for all tasks and redirections. provided MODULAR SET CREW MEMBER x 2 for ambulation from toilet to chair with max cues. pt with decrearse safety awareness and decrearse motor planning affecting mobility. M5 PT-IP Objective Assessments Start: 10/14/17 10:21 Freq: Status: Active Protocol: Document 10/21/17 11:00 RCC (Rec: 10/21/17 11:33 RCC [id number]) Orientation Orientation/Cognition Level of Alertness Confusional State Gross Range of Motion Upper Extremity ROM Impairments Impaired LUE ROM, holding it toward his midline in sitting but able to use it in standing when holding FWW. M6 PT-IP Treatment Start: 10/14/17 10:21 Freq: Status: Active Protocol: Document 10/23/17 15:30 AB (Rec: 10/23/17 16:48 AB [id number]) Physical Therapy Treatment Education Education Provided Safety M7 PT-IP Assessment and Plan Start: 10/14/17 10:21 Freq: Status: Active Protocol: Document 10/23/17 15:30 AB (Rec: 10/23/17 16:48 AB [id number]) PT Summary Assessment and Plan Potential Rehabilitation Potential Fair Summary Impairments Pain ROM Strength Balance Coordination Sensation Tone Cognition Bed Mobility Transfers Gait Activity Tolerance Progress Towards Goals Slow Progress due to Medical Issues Assessment Summary pt requires 2-3 max A with mobility with increase cues for safety and repeated instructions. pt will require SNF rehab to improve strength /mobility and safety awareness . Goals Bed Mobility Goal Standby Assistance Transfer Goal Standby Assistance Gait Goal Standby Assistance Gait Distance 100 Other Goals up/down 16 steps with R rail ascending Days to Meet Goals 5 Frequency of Treatment Frequency Of Treatment Once a Day Treatment Plan Physical Therapy Treatment Plan Bed Mobility Training Transfer Training Gait Training Therapeutic Exercise Balance Retraining Discharge Planning Neuromuscular Re-ed Coordination Retraining Manual Therapy Recommendations To Nursing Amount of Assist Needed 2 Person Assist 3 or More Person Assist Discharge Recommendations PT Discharge Recommendations SNF Rehab
[2017-10-23] MEDS: LORazepam 2 MG/ML SYRINGE 1 MG IM (16:55)
[2017-10-23 17:02] LABS: Thyroid Stimulating Hormone 1.55 uIU/mL (0.47-4.68)
--- NOTE | 2017-10-23 18:14 | PC.NURSE ---
Addendum entered by Madison Mix R.N. 10/23/17 22:31: 2015 - Pt resting quietly at this time. Restraints removed. 2114 - Pt attempting to get out of bed. Pt got his left leg wedged down in between the bed rail and mattress, Mildly agitated with attempt to assist pt out of current position. However more redirectable at this time. Assist to reposition. Warm blanket provided. Bed alarm on. Original Note: 1600 - Pt reports need to urinate. STRUCTURAL ANALYSIS ENGINEER and RN assist with gaitbelt to bathroom. Pt unable to comprehend bathroom situation. Unable to void. Pt set for sometime, without results. Therapy to room offer pt ambulation. Pt only able to ambulate back to chair. Chair alarm on. Less than 5 minutes and chair alarm is sounding. STRUCTURAL ANALYSIS ENGINEER immediately heading for pt room and reaching the door way just as pt attempted to stand independently and fell to his knees. 3 person max lift back into chair. Pt confused, disoriented and becoming agitated. Checkout Operator and Dr. Ordaz notified. No visible injuries noted at this time. 1630 - Pt with increased agitation. Katerina LOPEZ and security officers and guards in room. Pt grabbed hold of the overbed table and tipped it up on its end and shoving it toward staff. Yelling obsenities and get me out of here. 3 person max lift into bed. Seizure pads on bed rails. Pt kicking hitting and calling out. Pt grabbed this RN's stethoscope and name around my neck, yelling, give me back my stuff, this is my stuff. Dr. Ordaz notified. Coordinator, Yanira, security officers and guards, JOHN, Steph DE LEON, and this RN in room. RNYesica obtained telephone order from Dr. Ordaz for IM ativan. Given. multi share program coordinator again phoned Dr. Ordaz updating on pt violent behavior. Order obtained for retraints. Soft wrist restraints placed at 1650. Attempt to clear room and limit stimulation. Katerina LOPEZ and security officers and guards remain in room. Pt intermittently anxious and agitated. Pt began kicking out. Kicked the side rail repeatedly, breaking it. Dr. Ordaz notified of need to place LE restraints at 1710. 1740 - Pt offered PO intake. Evening meal arrived. Pt agreeable to have food. Respiradol po given with meal. 1800 - Pt remains in restraints, with intermittent periods of agitation. Reports need to void. No documented void since 10/22. Pt was bladder scanned on prior shift for 750cc. Dr. Ordaz aware of pt continued inablity to void. Straight cath for 1000cc of cloudy yellow urine. Pt agitated and agressive during catheteriztion, Again attempting low stimulation and allow for pt to calm down. Continuous one-to-one observation since 1599.
[2017-10-24 01:22] VITALS: BP 132/100; PULSE 112; RESP 20; TEMP 37.1
[2017-10-24 03:19] VITALS: O2SAT 96
--- NOTE | 2017-10-24 05:39 | PC.NURSE ---
Patient's mood is labile, fairly calm and cooperative as much as he can comprehend early in shift, slept after assist eating pudding and drinking water, incontinent of urine, allowed staff to change pull-up, remains guarded and unpredictable. Started to gets restless around 5am. Gathered extra staff and had chief information security officer stand by while we assisted him into a Tamra bed since ICU bed rail was not functioning. Unable to follow directions during transfer.
[2017-10-24] MEDS: RISPERIDONE 0.5 MG 2 MG SL (06:01)
[2017-10-24] MEDS: PANTOPRAZOLE 40 MG TABLET PO (06:01)
--- NOTE | 2017-10-24 09:17 | PC.NURSE ---
Addendum entered by Benedicto Dunaway R.N. 10/24/17 15:05: Pt more responsive after his mother left. Attempted reorientation but unable. Pt is in a pleasant mood. Ate applesauce and crackers. Pt has not voided this shift. He denies need/urge to urinate. Brief is dry. No distress noted. Will monitor. Original Note: Addendum entered by Benedicto Dunaway R.N. 10/24/17 13:15: Pt mostly sleeping today. He was agreeable to receiving IV thiamine and an IV was placed, medication infused. Dr. Hickman rounded at that time and spoke with the pt. Asked pt if he was hungry and he stated yes, but pt fell back asleep before lunch tray delivered. Mother in to visit and concerned that pt hasn't eaten lunch. Woke pt and asked if he would like his lunch. Pt woke to verbal stimuli but did not initiate eye contact. Offered him sandwich and cola, but pt was not interested. Will continue to offer food/fluids as pt is willing/able. Original Note: Dr. Hickman rounded approx 0800. Updated Dr. Hickman about previous 2 shift events and necessary interventions (restraints, IM med). Dr. Hickman would like to see if we can start an IV and administer thiamine. Will attempt IV placement once pt awakens. Allowing rest for now. Pt with even/unlabored respirations and intermittently repositioning self in bed with eyes closed.
[2017-10-24 11:30] VITALS: O2SAT 98
--- NOTE | 2017-10-24 12:08 | PM.PN.1 ---
Subjective Date Patient Seen: 10/24/17 Time Patient Seen: 11:15 Interval history: Patient had agitation yesterday evening which required IM Haldol and Ativan and 4 point restraints. This morning he was resting in bed calmly. He was alert and was able to make some simple conversations. Exam Vital Signs (past 8 hours): Oxygen Delivery Method Room Air Oxygen Flow Rate 0 Narrative Exam Narrative: Middle-age man who is currently lying in bed comfortably Lungs: Clear to auscultation bilaterally Heart: Regular rhythm, no murmur appreciated Abdomen: Soft, nontender Extremities: No pitting edema Neuro: He moves all his extremities. He is restless at times. He is able to make a few simple word conversations. Sometimes his speech does not make sense. Objective Labs Result Diagrams: 10/22/17 19:48 10/22/17 19:48 Labs: Laboratory Results - last 24 hr 10/22/17 Unknown TSH 1.55 Quality VTE Deep Vein Thrombosis/Pulmonary Embolism Present on Admission: No
[2017-10-24] MEDS: WATER IV ×3 (12:12→20:58)
[2017-10-24] MEDS: THIAMINE IV ×3 (12:12→20:58)
[2017-10-24] MEDS: DEXTROSE 5% IV ×3 (12:12→20:58)
[2017-10-24] MEDS: ACETAMINOPHEN 325 MG TABLET 650 MG PO ×2 (12:13→21:06)
[2017-10-24] MEDS: MULTIVITAMIN 1 TABLET 1 TAB PO (12:13)
[2017-10-24] MEDS: FOLIC ACID 1 MG TABLET PO (12:13)
[2017-10-24 12:25] VITALS: BP 122/67; PULSE 83; RESP 18; TEMP 37; O2SAT 98
--- NOTE | 2017-10-24 13:38 | PT.IPNOTE ---
Pt not responding to cues or acknowledging therapist attempts to participate in therapy. Not appropriate for PT at this time. Will attempt to f/u with patient this afternoon or tomorrow am as appropriate.
--- NOTE | 2017-10-24 14:04 | CM.DPC ---
Reviewed chart. Pt had another difficult night last night and ended up in restraints. Care Conf. completed this morning w/ MOISES Flores, RN Coordinator RICHIE Bermudez Dept Sisal Operator Isabell Truong, SAAS ARCHITECT Marryalejandro French and this SAAS ARCHITECT. Reviewed steps taken in this DCP and suggestions for moving forward. This SAAS ARCHITECT spoke w/Sarah from [facility] P# [phone], they are not able to accommodate pt right now d/t the increased assistance needed w/ADLs. If this changes, they would consider reviewing the referral again. After Care Conf., this SAAS ARCHITECT placed call to CDP/DCR to request an assessment for detainment/Psych placement. Then learned that an IV line had been placed for pt to receive IV Thiamine. Notified DCR Dispatch that pt was not medically ready yet w/line being placed. This SAAS ARCHITECT will update when pt is approp. for DCR dispatch. Spoke w/Dr Hickman, she would like to keep pt on IV Thiamine for a few days to see if pt improves, if not, or if pt pulls line out, we might consider a call to DCR again vs re-evaluation of DC/treatment options. Following very closely. Dr Hickman knows this SAAS ARCHITECT will remain available over the next 2 days to attempt coordination of an approp DC plan. At this time, Dr Hickman suggests waiting on results of IV Thiamine treatment before continued work on this DC plan. BALAJI Bullard
--- NOTE | 2017-10-24 15:29 | P.CONS_ITS ---
History of Present Illness Date Patient Seen: 10/24/17 Time Patient Seen: 12:30 Chief complaint: found on ground, etoh on board Reason for consult: Management of agitation Requesting provider: Jose Maria Calderon Narrative: UPDATED HOSPITAL COURSE: -episode of agitation yesterday late afternoon around 1600. Patient had not urinated for some time, bladder scans showed 750 mL in bladder, ultimately received IM lorazepam & needed 4 point restraints for safety. He ultimately required straight cath, yelling 1000 cc of urine around 1800. -Accepting SL risperidone 2mg BID. Unable to obtain EKG for QTc yet. Updated lab work shows TSH, B12, folate all within normal limits, no new lab abnormalities on 10/22/2017 INTERVIEW: -initial interview attempt at 8:00 a.m., patient was sleeping -spoke with patient around 12pm, when technical staff engineer starting thiamine. He is alert, conversant, with some statements that I can follow. He reports knowing me for many years (which is not the case), remembering me, and worried that he is not doing the right thing. I provided reassurance that he is doing great, and the importance of following staff?s direction. He reports feeling ok today. [facility] Medical History Alcohol abuse (Chronic) Dementia (Chronic) GERD (gastroesophageal reflux disease) (Chronic) Surgical History Status post lateral meniscus repair (Chronic) H/O inguinal hernia repair (Resolved) Social History household members: none Smoking Status: Former smoker alcohol intake: current substance use type: does not use Meds Home Medications Medication Instructions Recorded Confirmed Type acetaminophen [Tylenol Extra 1,000 mg PO BID PRN 09/28/17 10/14/17 History Strength] coconut oil 1 cap PO DAILY 09/28/17 10/14/17 History omeprazole 40 mg PO DAILY 09/28/17 10/14/17 History Allergies Allergy/AdvReac Type Severity Reaction Status Date / Time morphine [MORPHINE] Allergy Severe iv caused Verified 10/13/17 13:51 red line Review of Systems Review of Systems unobtainable due to mental condition Exam Vital Signs (past 8 hours): - 10/24/17 11:30 10/24/17 12:25 Temperature 98.6 F Pulse Rate 83 Respiratory Rate 18 Blood Pressure 122/67 H Pulse Oximetry 98 98 Oxygen Delivery Method Room Air Oxygen Flow Rate 0 Narrative Exam Narrative: MENTAL STATUS EXAM: Appearance: thin, fair-skinned male with pérez hair, wearing hospital garb Behavior: some psychomotor slowing, sitting up in bed, no tremor observed Speech: fluent, soft volume at times, switches words with similar sounding words at times, interruptible, nonsensical at times Mood: ?ok? Affect: incongruent with content, anxious, constricted but calmer than previous interviews Thought process: disorganized, tangential, perseverative, possibly responding to internal stimuli Thought content: unable to fully assessed based on altered mental status, no clear evidence of SI or HI, does not endorse hallucinations to this provider but has mentioned to others, likely paranoia Memory: Impaired, unable to formally test due to cognitive deficits & mental status Attention: Poor Insight: Poor Judgment: Poor Objective Labs Result Diagrams: 10/22/17 19:48 10/22/17 19:48 Labs: Laboratory Results - last 24 hr 10/22/17 Unknown TSH 1.55 Assessment & Plan Plan: Assessment/Plan Narrative: ASSESSMENT: Bradly Boston is a 57-year-old male with known history of dementia (Alzheimer's versus frontotemporal) admitted after found down, treated for presumed alcohol withdrawal. His initial clinical course was not typical for alcohol withdrawal , requiring very little lorazepam. His current presentation is a significant and acute change from his baseline, which is less typical for a dementia process outside of a vascular change. He is certainly disorganized, unable to sustain attention or follow commands. His presentation is consistent with delirium, and I want to make sure any medical etiology that could contribute to an acute change has been ruled out. Urine drug screen was not done on admission , I suspect urine was difficult to obtain, and I wonder about any other substance use in addition to alcohol. MRI & MRA did not show a causative factor for his symptoms, no stroke or other lesion. Labwork including TSH, folate, B12 have been normal. With clear changes in gait & mental status compared to the ED visits in July and August, as well as ongoing alcohol use and certainly risk of thiamine deficiency, I feel that he warrants treatment for presumed Wernicke?s Encephalopathy, as thiamine is low risk & if he responds it could explain some of his symptoms. I think this should be addressed prior to considering transfer to a psychiatric facility where they do not have the same capability for medical care. DIAGNOSES: Delirium of unknown etiology (Rule out Wernicke's Encephalopathy) Psychosis Moderate to severe dementia (Alzheimer?s vs. frontotemporal) RECOMMENDATIONS: - Start treatment for presumed Wernicke Encephalopathy: Thiamine IV 500mg TID x2d, then thiamine 250mg IV/IM x5d, then thiamine PO 100mg daily (if IV dosing is not possible, we can replace any IV dose with 250mg IM) - Continue risperidone 2mg PO BID - EKG for QTc, check for prolongation in the context of risperidone - consider obtaining records from Dr. Kyaw Koenig, psychiatrist in [facility], should have at least one visit on file prior to 2016 (for more psychiatric history) - Delirium precautions as you are doing, including normalizing sleep/wake cycle as much as possible, frequent re-orientation, access to glasses if needed, maintain hydration & nutrition status as possible, avoid medicaitons which can worsen delirium (particularly benzodiazepines, opioids, anticholinergics) - Consider re-referral to DCR to consider involuntary treatment if no response to thiamine by Thursday 10/26 - thank you for involving me in this patient's care. I will be off-campus 10/25/17, but am available via cell & have communicated this contact info to staff. I will plan to f/u with patient on Sunday10/26/17. I appreciate the medical service?s excellent care of this challenging case. Time Spent With Patient Time with patient: 25 - 35 minutes
--- NOTE | 2017-10-24 18:41 | PC.NURSE ---
Addendum entered by Madison Mix R.N. 10/24/17 21:08: Pt reporting back pain. Repositioned. Set up for snack. PO HS meds given. IV thiamine infusing. Continues to be disoriented but redirectable at this time. Original Note: Addendum entered by Madison Mix R.N. 10/24/17 20:26: Pt awake, restless. Pt had been inc of urine during sleep. Resistive to care, however not combative. Frequent reassurance provided. Repositioned, warm blanket provided. Bed alarm on. Original Note: Pt sitting up in bed. Restless, reports need to void. Attempt to assist with urinal. Simple explanation provided. Allow pt time to process information. Attempt to assist, Pt states, I am not comfortable with this, I am going home. Stopped efforts to assist pt. Pt fidgets for a few minutes and then appears drowsy. Allowing pt to rest. Monitor for urinary output. Bed alarm on.
[2017-10-24] MEDS: risperiDONE 1 MG TABLET 2 MG PO (18:53)
[2017-10-24] MEDS: TRAZODONE 50 MG TABLET 25 MG PO ×2 (20:58→23:40)
[2017-10-25] VITALS: O2SAT 95
[2017-10-25 00:01] VITALS: BP 149/87; PULSE 101; RESP 16; TEMP 37.1; O2SAT 95
--- NOTE | 2017-10-25 00:06 | PC.NURSE ---
Addendum entered by Elaine Edge R.N. 10/25/17 05:51: Patient continues to be restless, angry, using profanity, and yelling out for Alejandra. Said he was looking for food, agreeable to eat 'turkey sandwich' then refused when we tried to assist him to eat it. IT HELP DESK ASSOCIATE was able to finish changing linen small intervals at a time. Original Note: Addendum entered by Elaine Edge R.N. 10/25/17 03:42: Patient is incontinent of urine, staff able to do partial linen change, approaching patient calmly, giving much explanation and reassurance, half-way through change, patient became very angry and aggressive, grabbing this RNs wrist tightly, other staff had to assist to release it. All staff backed away from patient in order to allow him space to deescalate. Original Note: Addendum entered by Elaine Edge R.N. 10/25/17 03:21: Patient is still restless and agitated, but not combative, moving around all over the bed, pulling at seizure pads, I need to go Unable to comprehend situation or any directions. 1:1 staffing, it security consultant rounding frequently. Staff has tried to assist with urinal several times-unsuccessful, brief remains dry. Original Note: Addendum entered by Elaine Edge R.N. 10/25/17 02:06: Patient rested for about 1 hour, then became aggressive and very uncooperative, pushing at staff and attempting to get out of bed. 3 staff and it security consultant in room for 1/2 hour trying to calmly reassure patient and deescalate situation, keeping him safe, offering food, drink, and toileting, resistive to all, then started swing arms and kicking, kicked guard in shoulder. 5mg IM Haldol given per prn when all other interventions failed. Original Note: At beginning of shift, patient is restless and trying to get out of the bed, remaining calm and confused, somewhat redirectable, able to sit him up in bed, get VS, do assessment, and feed him pudding with another Trazadone per prn order. He is wide awake and talkative, only oriented to self. Assisted with urinal, no void at this time, pull-up dry.
[2017-10-25] MEDS: HALOPERIDOL 5 MG/ML VIAL IM (01:48)
[2017-10-25] MEDS: risperiDONE 1 MG TABLET 2 MG PO ×2 (08:59→19:21)
[2017-10-25] MEDS: MULTIVITAMIN 1 TABLET 1 TAB PO (08:59)
[2017-10-25] MEDS: FOLIC ACID 1 MG TABLET PO (08:59)
[2017-10-25] MEDS: ENOXAPARIN 40 MG/0.4 ML SYRINGE SUBCUT (08:59)
[2017-10-25] MEDS: PANTOPRAZOLE 40 MG TABLET PO (08:59)
--- NOTE | 2017-10-25 09:23 | PC.NURSE ---
Addendum entered by Benedicto Dunaway R.N. 10/25/17 15:05: Pt able to stand at bedside with 2pa. Attempted to urinate per urinal but unable. Declines need at this point. Pt does not want to go for a walk. He gets defensive but is easily distracted and able to get back to bed. Repositioned for comfort. Pt was agreeable to receiving IM thiamine at this time. Pleasant mood. Family at bedside. Original Note: Addendum entered by Benedicto Dunaway R.N. 10/25/17 13:34: FLIGHT SUPERINTENDENT set pt up to brush teeth. Pt was able to brush his own teeth but needed cueing to rinse toothpaste from mouth. Handed pt wash cloth to wash face. He did so but became paranoid that someone was going to take his things. Attempted reorientation and redirection without success. Pt holding towel and washcloths visably upset stating he doesn't want anyone to take his things. Told pt his mother would be in to visit and urged him to change his shirt and get cleaned up for the occasion. He remains paranoid and will not allow assistance to remove sweatshirt or provided hygiene care. Bed alarm is on and curtain is open for direct visualization, but allowing decreased stimuli presently in attempt to de escalate. Original Note: Addendum entered by Benedicto Dunaway R.N. 10/25/17 12:21: Provided set up assist for lunch. Pt currently sitting bolt upright in bed feeding self lunch. Attempted to reorient without success. No aggressive behavior noted at present. Bed alarm in use. Original Note: Addendum entered by Benedicto Dunaway R.N. 10/25/17 11:05: Pt awake and talkative. He is laying in bed with sweatshirt on and his brief pulled to thigh level. Unable to direct pt to keep brief on despite simple direction and distraction. Educated pt to need for IM thiamine. He is resistant to accept it but does allow it. It was tolerated with minimal, brief pain. Pt was easily distracted post administration and had no further c/o. Pt sitting up in bed eating applesauce. Original Note: Pt awake and picking at seizure pads. Alert and conversing with tangential, illogical speech. Bradly is picking at blankets and reporting worms. Provided reorientation and reassurance. Reminded Bradly that he was in the hospital and asked him if he remembered the IV vitamin infusion he received yesterday. He states yes. He was resistant to having an IV restarted but allowed one attempt by this nurse. He was unable to remain still for the procedure and thus unable to cannulate vein. He adamantly refused an additional attempt at this time. Reordered thiamine IM per MD orders.
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
[2017-10-25] MEDS: THIAMINE 200 MG/2 ML VIAL 250 MG IM ×3 (10:49→20:53)
--- NOTE | 2017-10-25 11:26 | PT.IPTN ---
Current Diagnoses Metabolic encephalopathy (10/15/17) Altered mental status, unspecified (10/15/17) Physical Therapy Treatment Note M2 PT-IP Current Condition Start: 10/14/17 10:21 Freq: Status: Active Protocol: Document 10/21/17 11:00 RCC (Rec: 10/21/17 11:33 RCC [id number]) Physical Therapy Current Condition Current Condition Evaluation Date 10/19/17 Treatment Diagnosis GLF; ETOH withdrawal; difficulty with walking Onset Date 10/15/17 Precautions Other Precautions falls; can be combative M3 PT-IP Subjective Start: 10/14/17 10:21 Freq: Status: Active Protocol: Document 10/25/17 11:26 GGD (Rec: 10/25/17 11:26 GGD [id number]) Subjective Physical Therapy Visit Type Type Patient Refusal Notes Pt states he didn't want to walk or get out of bed. Will try in PM. Frequency of Treatment Frequency Of Treatment Once a Day Treatment Plan Physical Therapy Treatment Plan Bed Mobility Training Transfer Training Gait Training Therapeutic Exercise Balance Retraining Discharge Planning Neuromuscular Re-ed Coordination Retraining Manual Therapy Recommendations To Nursing Amount of Assist Needed 2 Person Assist 3 or More Person Assist Discharge Recommendations PT Discharge Recommendations SNF Rehab
--- NOTE | 2017-10-25 15:11 | PT.IPTN ---
Current Diagnoses Metabolic encephalopathy (10/15/17) Altered mental status, unspecified (10/15/17) Physical Therapy Treatment Note M2 PT-IP Current Condition Start: 10/14/17 10:21 Freq: Status: Active Protocol: Document 10/21/17 11:00 RCC (Rec: 10/21/17 11:33 RCC [id number]) Physical Therapy Current Condition Current Condition Evaluation Date 10/19/17 Treatment Diagnosis GLF; ETOH withdrawal; difficulty with walking Onset Date 10/15/17 Precautions Other Precautions falls; can be combative M3 PT-IP Subjective Start: 10/14/17 10:21 Freq: Status: Active Protocol: Document 10/25/17 15:05 GGD (Rec: 10/25/17 15:11 GGD [id number]) Subjective Physical Therapy Visit Type Type Treatment Note Visit Start Time 14:30 Visit Stop Time 15:05 Total Visit Minutes 35 Number of PYTHON PROGRAMMER Visits 1 Physical Therapy Visit Comments Patient Comments Pt wants to try and urinate. M4 PT-IP Mobility and Gait Start: 10/14/17 10:21 Freq: Status: Active Protocol: Document 10/25/17 15:05 GGD (Rec: 10/25/17 15:11 GGD [id number]) PT-Bed Mobility Assessment Supine to Sit Supine to Sit Contact Guard Assistance Head of Bed Elevated Sit to Supine Sit to Supine Moderate Assistance 2 Person Assistance Scooting Scooting to Edge of Bed Minimal Assistance PT-Transfer Assessment Sit to and From Stand Sit to and from Stand Minimal Assistance 1 Person Assistance Equipment Transfer Assistive Device None Transfers Transfer Destination Bed Comments Mobility Comments Standing at EOB with RN assisting for urination x 3 min with hand hold min A. Gait Assessment Comments Gait Comments trial of side steps and standing marches. M5 PT-IP Objective Assessments Start: 10/14/17 10:21 Freq: Status: Active Protocol: Document 10/21/17 11:00 RCC (Rec: 10/21/17 11:33 RCC [id number]) Orientation Orientation/Cognition Level of Alertness Confusional State Gross Range of Motion Upper Extremity ROM Impairments Impaired LUE ROM, holding it toward his midline in sitting but able to use it in standing when holding FWW. M6 PT-IP Treatment Start: 10/14/17 10:21 Freq: Status: Active Protocol: Document 10/23/17 15:30 AB (Rec: 10/23/17 16:48 AB [id number]) Physical Therapy Treatment Education Education Provided Safety M7 PT-IP Assessment and Plan Start: 10/14/17 10:21 Freq: Status: Active Protocol: Document 10/25/17 15:05 GGD (Rec: 10/25/17 15:11 GGD [id number]) PT Summary Assessment and Plan Summary Assessment Summary Pt unable to take functional steps or follow cues. He was able to sit to stand with CGA. Goals Bed Mobility Goal Standby Assistance Transfer Goal Standby Assistance Gait Goal Standby Assistance Gait Distance 100 Other Goals up/down 16 steps with R rail ascending Days to Meet Goals 5 Frequency of Treatment Frequency Of Treatment Once a Day Treatment Plan Physical Therapy Treatment Plan Bed Mobility Training Transfer Training Gait Training Therapeutic Exercise Balance Retraining Discharge Planning Neuromuscular Re-ed Coordination Retraining Manual Therapy Recommendations To Nursing Amount of Assist Needed 2 Person Assist 3 or More Person Assist Discharge Recommendations PT Discharge Recommendations SNF Rehab
--- NOTE | 2017-10-25 15:56 | CM.DPC ---
Spoke w/ Dr Calderon re: plan. He continues to endorse this as a dementia diagnosis w/aggressive behaviors. Eladio-psych remains appropriate for med management and stabilization of impulsive and violent behaviors, Dr Calderon states no acute delirium. Next steps remain unclear d/t limited treatment options/placement for this gentleman. 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 Will need to contact in the morning to request another assessment for detainment vs ? Leonarda from [facility] not available until SundayOctober 29 ( most likely resource for care home dementia management). Updated MOISES Flores re above. BALAJI Bullard
[2017-10-25 16:05] VITALS: BP 139/93; PULSE 98; RESP 20; O2SAT 97
--- NOTE | 2017-10-25 20:02 | PC.NURSE ---
Addendum entered by Madison Mix R.N. 10/25/17 21:27: 2100 - Discussed with pt the need to give medication through IM injection. Pt agitated at completion of administration. Comfort measures provided. pool lifeguard present. Monitor. Original Note: Addendum entered by Madison Mix R.N. 10/25/17 20:48: 2030 - Pt restless, asking how he can get out of here. Reoriented to place and situation. Pt requesting something to drink, set up for HS snacks. PO meds given in applesauce. Pt with labile emotions. Talking about his cat and asking to talk to his mom. Reassurance provided. Original Note: Pt found to be inc of urine. Restless and mildly agitated. pool lifeguard present. Pt did grab hold tightly to this nurses wrist, stating, I don't know what is going on. Able to talk to patient and provide reassurance. Pt resistive to care but did not strike out at this time. Linen and brief change. Pt states that he needs to go find my stuff. Multiple attempts to reorient, able to take PO med in bite of applesauce. Seizure pads in place. Bed alarm on.
[2017-10-25] MEDS: TRAZODONE 50 MG TABLET 25 MG PO ×2 (20:53→22:17)
[2017-10-26] MEDS: LORazepam 2 MG/ML SYRINGE 1 MG IM (02:27)
--- NOTE | 2017-10-26 02:33 | PC.NURSE ---
Addendum entered by Lily Kevin R.N. 10/26/17 06:43: Security and excess staff called to bedside 4 times overnight for assistance with patient behavior. Urinal assistance offered multiple times when patient grabs at genitals - unsuccessful. Incontinent of urine X 3. Original Note: Pt allowed to sleep up until approximately 0200. Beginning stages of agitation. Able to reassure and calm patient up until 0225 when he began to escalate and attempt to get OOB while getting aggressive with staff. Security and FIRE PROTECTION FABRICATOR Bradly called to bedside for assistance. Able to do a pad change d/t urinary incontinence after Ativan IM dose administered. Staff and patient safety maintained.
[2017-10-26 08:02] VITALS: BP 118/67; PULSE 79; RESP 14; TEMP 36.8; O2SAT 96
[2017-10-26] MEDS: ENOXAPARIN 40 MG/0.4 ML SYRINGE SUBCUT (08:31)
[2017-10-26] MEDS: MULTIVITAMIN 1 TABLET 1 TAB PO (08:32)
[2017-10-26] MEDS: FOLIC ACID 1 MG TABLET PO (08:32)
[2017-10-26] MEDS: risperiDONE 1 MG TABLET 2 MG PO (08:32)
[2017-10-26] MEDS: PANTOPRAZOLE 40 MG TABLET PO (08:32)
[2017-10-26] MEDS: THIAMINE 200 MG/2 ML VIAL 250 MG IM (08:33)
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
--- NOTE | 2017-10-26 13:57 | P.CONS_ITS ---
History of Present Illness Chief complaint: found on ground, etoh on board Requesting provider: Jose Maria Calderon Narrative: UPDATED HOSPITAL COURSE: Agitation overnight around 0230; also agitated overnight previous night Lost IV yesterday and attempt to replace was unsuccessful; continues to be incontinent of urine. Restless, stating he doesn?t know what is going on, mentioning leaving. Prn meds in past 48h: IM lorazepam 1mg 10/26 at 0230; Haldol 5mg IM 10/25 at 0148 Received 2nd dose of trazodone 10/25 Received 3 doses IV thiamine 500mg on 10/24; 3 doses 250mg IM on 10/25 Continues to receive risperidone 2mg BID, tolerating PO Collateral from staff: No clear change since starting thiamine; no clear effect from trazodone and received extra dose last night. INTERVIEW: Patient states he is doing fine, when asked if anything is bothering him in the hospital he says now, he is more drowsy this morning, appears sedated compared to previous visits but I am also seeing him earlier in the morning. He mumbles , speech is difficult to make out [facility] Medical History Alcohol abuse (Chronic) Dementia (Chronic) GERD (gastroesophageal reflux disease) (Chronic) Surgical History Status post lateral meniscus repair (Chronic) H/O inguinal hernia repair (Resolved) Social History household members: none Smoking Status: Former smoker alcohol intake: current substance use type: does not use Meds Home Medications Medication Instructions Recorded Confirmed Type acetaminophen [Tylenol Extra 1,000 mg PO BID PRN 09/28/17 10/14/17 History Strength] coconut oil 1 cap PO DAILY 09/28/17 10/14/17 History omeprazole 40 mg PO DAILY 09/28/17 10/14/17 History Allergies Allergy/AdvReac Type Severity Reaction Status Date / Time morphine [MORPHINE] Allergy Severe iv caused Verified 10/13/17 13:51 red line Review of Systems Review of Systems unobtainable due to mental condition Exam Vital Signs (past 8 hours): - 10/26/17 08:02 Temperature 98.2 F Pulse Rate 79 Respiratory Rate 14 Blood Pressure 118/67 Pulse Oximetry 96 Oxygen Delivery Method Room Air Oxygen Flow Rate 0 Narrative Exam Narrative: MENTAL STATUS EXAM: Appearance: thin, fair-skinned male with pérez hair, wearing hospital garb Behavior: some psychomotor slowing, lying in bed, no tremor observed Speech: soft volume, mumbling Mood: ?ok? Affect: drowsy Thought process: disorganized, tangential, perseverative, possibly responding to internal stimuli Thought content: unable to fully assessed based on altered mental status, no clear evidence of SI or HI, does not endorse hallucinations to this provider but has mentioned to others, likely paranoia Memory: Impaired, unable to formally test due to cognitive deficits & mental status Attention: Poor Insight: Poor Judgment: Poor Objective Labs Result Diagrams: 10/22/17 19:48 10/22/17 19:48 Assessment & Plan Plan: Assessment/Plan Narrative: ASSESSMENT: Bradly Boston is a 57-year-old male with known history of dementia (Alzheimer's versus frontotemporal) admitted after found down, treated for presumed alcohol withdrawal. His initial clinical course was not typical for alcohol withdrawal , requiring very little lorazepam. His current presentation is a significant and acute change from his baseline, which is less typical for a dementia process outside of a vascular change. He is certainly disorganized, unable to sustain attention or follow commands. His presentation is consistent with delirium, and I want to make sure any medical etiology that could contribute to an acute change has been ruled out. Urine drug screen was not done on admission , I suspect urine was difficult to obtain, and I wonder about any other substance use in addition to alcohol. MRI & MRA did not show a causative factor for his symptoms, no stroke or other lesion. Labwork including TSH, folate, B12 have been normal. With clear changes in gait & mental status compared to the ED visits in July and August, as well as ongoing alcohol use and certainly risk of thiamine deficiency, I feel that he warrants treatment for presumed Wernicke?s Encephalopathy, as thiamine is low risk & if he responds it could explain some of his symptoms. So far, there has been no discernible change since starting thiamine, with continued disorientation, difficulty following commands, and intermittent agitation placing both himself and staff at risk. At this time, I think this is worth re-visiting with [facility]. I feel he meets involuntary criteria for grave disability due to a mental health condition evidenced by new disorganization in thoughts & behavior that put his health at risk by inability to seek medical care prior to admission. I also feel that neurology assessment would be valuable; there have not been specific neurologic findings but his presentation is atypical for a specific psychiatric condition, or a progression of normal dementia process. Despite lack of clear improvement with thiamine as of yet, I recommend continued treatment with IM for total of 5 days if this does not worsen patient agitation, as this is standard treatment and sometimes response to thiamine can take longer. DIAGNOSES: Delirium of unknown etiology (Rule out Wernicke's Encephalopathy) Psychosis Moderate to severe dementia (Alzheimer?s vs. frontotemporal) RECOMMENDATIONS: - continue thiamine IM 250 mg daily for five days total, then start thiamine p.o. 100 mg daily as planned - Increase trazodone to 100mg PO QHS - Continue risperidone 2mg PO BID - EKG for QTc, check for prolongation in the context of risperidone - Delirium precautions as you are doing, including normalizing sleep/wake cycle as much as possible, frequent re-orientation, access to glasses if needed, maintain hydration & nutrition status as possible, avoid medicaitons which can worsen delirium (particularly benzodiazepines, opioids, anticholinergics) - Re-referral to [facility] as planned by primary team - thank you for involving me in this patient's care. I will be off-campus until Sunday 10/29, but am available via cell & have communicated this contact info to staff. I will plan to check-in with team & patient on 10/29/17 if pt is still in our care. I appreciate the excellent care with this challenging case. Time Spent With Patient Time with patient: 25 - 35 minutes
--- NOTE | 2017-10-26 14:43 | PT.IPTN ---
Current Diagnoses Metabolic encephalopathy (10/15/17) Altered mental status, unspecified (10/15/17) Physical Therapy Treatment Note M2 PT-IP Current Condition Start: 10/14/17 10:21 Freq: Status: Active Protocol: Document 10/21/17 11:00 RCC (Rec: 10/21/17 11:33 RCC [id number]) Physical Therapy Current Condition Current Condition Evaluation Date 10/19/17 Treatment Diagnosis GLF; ETOH withdrawal; difficulty with walking Onset Date 10/15/17 Precautions Other Precautions falls; can be combative M3 PT-IP Subjective Start: 10/14/17 10:21 Freq: Status: Active Protocol: Document 10/26/17 14:42 GGD (Rec: 10/26/17 14:43 GGD [id number]) Subjective Physical Therapy Visit Type Type Patient Unavailable Notes Hold per RN, pt sleeping. Recommendations To Nursing Amount of Assist Needed 2 Person Assist 3 or More Person Assist Discharge Recommendations PT Discharge Recommendations SNF Rehab
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
--- NOTE | 2017-10-26 15:01 | PC.NURSE ---
pt was fed breakfast and few bites of lunch otherwise laying with feet in head area of bed and head at foot of bed- he has been drowsy and non- aggressive this entire shift- incont of urine large amount and was cleaned and linens changed without problem- will continue to monitore- [facility] here to assess pt- no iv lines no 02 - update to pt's mother in person and to sister, yulissa via t/c
[2017-10-26] MEDS: TRAZODONE 50 MG TABLET PO (21:01)
[2017-10-26] MEDS: RISPERIDONE 0.5 MG 1 MG SL (21:02)
[2017-10-26] MEDS: ACETAMINOPHEN 325 MG TABLET 650 MG PO (21:57)
--- NOTE | 2017-10-26 23:15 | PC.NURSE ---
jason note pt initially calm, but withdrawn. Pt later more awake and able to be fed dinner. Pt incontinent twice of urine. No IV access. No violent behaviors or agitation.
--- NOTE | 2017-10-27 02:05 | PC.NURSE ---
Addendum entered by Lily Kevin R.N. 10/27/17 06:23: Pt has continued to be pleasant and cooperative overnight. Slept consistently, about 2 hour intervals. No acute changes this shift. Original Note: Pt asleep at start of shift. Allowed to rest. Awake around 0100 but remained quiet and calm in bed. 0200 sitting up in bed scooting himself down to the end with feet hanging off the bedside. Pt remains disoriented with nonsensical and tangential speech pattern but currently pleasant without agitation or aggression. Able to redirect patient back to lying position and he is cooperative with a brief change. Will continue to monitor closely.
[2017-10-27] MEDS: FOLIC ACID 1 MG TABLET PO (08:23)
[2017-10-27] MEDS: PANTOPRAZOLE 40 MG TABLET PO (08:24)
[2017-10-27] MEDS: MULTIVITAMIN 1 TABLET 1 TAB PO (08:24)
[2017-10-27] MEDS: THIAMINE 100 MG TABLET PO (08:24)
[2017-10-27] MEDS: RISPERIDONE 0.5 MG 1 MG SL (08:24)
[2017-10-27 09:20] VITALS: BP 122/81; PULSE 113; RESP 16; TEMP 36.7; O2SAT 97
[2017-10-27 09:28] VITALS: O2SAT 97
--- NOTE | 2017-10-27 14:00 | PT.IPTN ---
Current Diagnoses Metabolic encephalopathy (10/15/17) Altered mental status, unspecified (10/15/17) Physical Therapy Treatment Note M2 PT-IP Current Condition Start: 10/14/17 10:21 Freq: Status: Active Protocol: Document 10/21/17 11:00 RCC (Rec: 10/21/17 11:33 RCC [id number]) Physical Therapy Current Condition Current Condition Evaluation Date 10/19/17 Treatment Diagnosis GLF; ETOH withdrawal; difficulty with walking Onset Date 10/15/17 Precautions Other Precautions falls; can be combative M3 PT-IP Subjective Start: 10/14/17 10:21 Freq: Status: Active Protocol: Document 10/27/17 14:00 GGD (Rec: 10/27/17 15:10 GGD [id number]) Subjective Physical Therapy Visit Type Type Treatment Note Visit Start Time 13:30 Visit Stop Time 14:00 Total Visit Minutes 30 Number of MULTI OPERATION MACHINE OPERATOR Visits 2 Physical Therapy Visit Comments Patient Comments Pt up to w/c with NSG M4 PT-IP Mobility and Gait Start: 10/14/17 10:21 Freq: Status: Active Protocol: Document 10/27/17 14:00 GGD (Rec: 10/27/17 15:10 GGD [id number]) PT-Bed Mobility Assessment Sit to Supine Sit to Supine Minimal Assistance 2 Person Assistance Scooting Scooting to Edge of Bed Minimal Assistance PT-Transfer Assessment Sit to and From Stand Sit to and from Stand Minimal Assistance Moderate Assistance 1 Person Assistance 2 Person Assistance Transfers Transfer Destination Bed Gait Assessment Gait Gait Assistance Required: Minimum Assistance Moderate Assistance 2 Person Assist Distance (Feet) (feet) 40 Assistive Devices Assistive Device None Comments Gait Comments Gait x40 feet x2 with seated beak in W/C. 2 person hand hold assist with W/C follow. M5 PT-IP Objective Assessments Start: 10/14/17 10:21 Freq: Status: Active Protocol: Document 10/21/17 11:00 RCC (Rec: 10/21/17 11:33 RCC [id number]) Orientation Orientation/Cognition Level of Alertness Confusional State Gross Range of Motion Upper Extremity ROM Impairments Impaired LUE ROM, holding it toward his midline in sitting but able to use it in standing when holding FWW. M6 PT-IP Treatment Start: 10/14/17 10:21 Freq: Status: Active Protocol: Document 10/23/17 15:30 AB (Rec: 10/23/17 16:48 AB [id number]) Physical Therapy Treatment Education Education Provided Safety M7 PT-IP Assessment and Plan Start: 10/14/17 10:21 Freq: Status: Active Protocol: Document 10/27/17 14:00 GGD (Rec: 10/27/17 15:10 GGD [id number]) PT Summary Assessment and Plan Summary Assessment Summary Pt need 2 assist for gait. He was unsteady and had LOB. He did need max cues. Frequency of Treatment Frequency Of Treatment Once a Day Treatment Plan Physical Therapy Treatment Plan Bed Mobility Training Transfer Training Gait Training Therapeutic Exercise Balance Retraining Discharge Planning Neuromuscular Re-ed Coordination Retraining Manual Therapy Recommendations To Nursing Amount of Assist Needed 2 Person Assist 3 or More Person Assist Discharge Recommendations PT Discharge Recommendations SNF Rehab
--- NOTE | 2017-10-27 16:01 | PC.NURSE ---
Addendum entered by Madison Mix R.N. 10/27/17 21:15: 2115 - Pt awake. BUSHEL GIRL attempt to assist pt with urinal. No void. Set up for snack. Pt, with assistance, able to eat some ice cream, and drink water. Fidgeting, but not agitated at this time. Original Note: Addendum entered by Madison Mix R.N. 10/27/17 20:27: 2000 - Pt inc of urine and stool. BUSHEL GIRL's able to provide pericare. Pt calming following completion. Monitor. Original Note: Addendum entered by Madison Mix R.N. 10/27/17 19:27: 1925 - Pt continues to be restless and agitated. Moving around in circles in bed. Using profanity. Calling out. Original Note: Addendum entered by Madison Mix R.N. 10/27/17 18:43: 1830 - Pt remains agitated. On hands and knees in the bed. Pushing and leaning over side rails. Yelling and using profanity. Get me the f out of here. Mat placed on floor for pt safety. 2 BUSHEL GIRL's and this RN in room. Pt has removed brief and clothing. Multiple attempt to reorient. Attempting to step away however pt again leaning head and body over the side rail. Dr. Ordaz at bedside. Discussed treatment alternatives. PO meds and straight cath, neither possible in pt current state. Order recieved for 1mg IM Ativan. Given. Original Note: Addendum entered by Madison Mix R.N. 10/27/17 17:51: 1745 - Pt restless and agitated. Repeatedly saying that he needs to void. Again attempt to assist with urinal. Pt unable to comprehend urinal use. Pt unable to follow cueing in order to void. Using profanity and remains agitated. Seizure pads in place for pt safety. Original Note: Addendum entered by Madison Mix R.N. 10/27/17 17:08: 1700 -Pt stating that he need to use the bathroom. Smearing of stool. Assist to bathroom, Pt becoming more agitated and agressive. 2 BUSHEL GIRL's in room, unable to redirect. Coordinator Paige and RN, Makenna in room, Requesting Code Omar. Code pérez called. Staff assist pt back into bed. Stepping away from pt. Dr. Ordaz present. Verbal order for Haldol 5mg now. Given. Original Note: Pt restless at start of shift. Attempt to assist with urinal. Assist to BSC. No results. Pt assisted back to bed. Found to have arm stuck between bed frame and side rail. 3 people to assist with removal of arm from rail. Right arm erythema. Increasing agitation. Coordinator notified of need for one-to-one sitter.
--- NOTE | 2017-10-27 16:03 | CM.DPC ---
DCP Cont: Per RN, pt has still been re-directable and per PT pt has ability to ambulate but more of a difficulty with understanding and confusion. BRAYDEN spoke to Leonarda, from [facility], and she states she has been in contact with the family and is now back from vacation and plans to assess the pt bedside and talk with staff tomorrow, Sun October 28, around 1130 and BRAYDEN printed off updated clinicals and placed on desk for Leonarda to review tomorrow. Plan: BRAYDEN to follow closely for [facility] bedside assessment of the pt tomorrow around 1130 to determine if their Memory Care Unit could accommodate the pt's needs. BALAJI Parker
[2017-10-27] MEDS: HALOPERIDOL 5 MG/ML VIAL IM (17:00)
[2017-10-27] MEDS: LORazepam 2 MG/ML SYRINGE 1 MG IM (19:00)
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
[2017-10-27] MEDS: TRAZODONE 50 MG TABLET PO (21:10)
[2017-10-27] MEDS: RISPERIDONE 0.5 MG 2 MG SL (21:10)
[2017-10-28] MEDS: LORazepam 2 MG/ML SYRINGE 1 MG IM (00:18)
--- NOTE | 2017-10-28 00:25 | PC.NURSE ---
Addendum entered by Lily Kevin R.N. 10/28/17 06:41: Pt slept intermittently but remained calm the rest of the night. Incontinent of stool and urine, full linen change done with multiple staff members and security team lead for safety. No aggressive behavior noted this time. He appears to be having hallucinations, picking at the air and mumbling to himself frequently. Original Note: Received patient awake and restless sitting up in bed, quiet and fidgety. Allowed to rest, pt visualized frequent sitting up and then lying back down. 0010 Pt with beginning signs of agitation. Urinal offered by jonathanter multiple times, unsuccessful. Noted to have been incontinent of urine. 5 staff members utilized in room to assist with incontinent care. Pt swung his right arm at staff during turning. IM ativan dose administered per orders.
[2017-10-28 08:15] VITALS: BP 137/99; PULSE 106; RESP 16; TEMP 36.7; O2SAT 97
[2017-10-28] MEDS: THIAMINE 100 MG TABLET PO (08:29)
[2017-10-28] MEDS: FOLIC ACID 1 MG TABLET PO (08:29)
[2017-10-28] MEDS: PANTOPRAZOLE 40 MG TABLET PO (08:29)
[2017-10-28] MEDS: MULTIVITAMIN 1 TABLET 1 TAB PO (08:29)
[2017-10-28] MEDS: RISPERIDONE 0.5 MG 2 MG SL ×2 (08:30→22:04)
[2017-10-28 09:15] VITALS: O2SAT 97
--- NOTE | 2017-10-28 12:21 | PC.NURSE ---
pt quiet, resting this morning. minimal verbal response. pt not opening mouth for bites of lunch. stares off. Leonarda from [facility] here to conference with family and assess pt. Side rails up x3.
[2017-10-28 12:25] VITALS: O2SAT 96
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
--- NOTE | 2017-10-28 15:23 | CM.DPC ---
DCP/Continued: Reviewed chart. Received notification from previous FUELS SALES REPRESENTATIVE notes that Leonarda from [facility] coming to evaluate patient today at approximately 11:30AM. FUELS SALES REPRESENTATIVE met with nursing staff to update them on plan. Attempted to meet with patient but at time of visit patient appeared comfortably medicated in bed. Leonarda arrived to do intake and reports to FUELS SALES REPRESENTATIVE that she has met with patient and his family approximately 1 month ago. Family has been interested in bed bug exterminator placement for patient but per Leonarda patient was not ready. Leonarda reports that patient was much more lucid then. Leonarda provided with all updated clinical and she plans to review this evening. In addition, patient's Mother/Poornima and sister came in today to meet with Leonarda and FUELS SALES REPRESENTATIVE to discuss/update d/c plan. Patient's Mother in complete agreement to [facility] if they can accept and meet patient's needs. Leonarda is concerned about some of patient's night time behaviors. She will be back tomorrow around lunch time in hopes to touch base with Dr. Hickman. Leonarda reports that she has 1 remaining bed and she believes that she can accept once she 1) confirms with her staff, 2) discusses with Dr. Hickman, and 3)receives confirmation from family that ken can hire private care givers for night at [facility]. P: FUELS SALES REPRESENTATIVE following closely. Leonarda to be at [facility] tomorrow at approximately 1:00pm for second evaluation. BALAJI Crook
--- NOTE | 2017-10-28 16:16 | PT.IPTN ---
Current Diagnoses Metabolic encephalopathy (10/15/17) Altered mental status, unspecified (10/15/17) Physical Therapy Treatment Note M2 PT-IP Current Condition Start: 10/14/17 10:21 Freq: Status: Active Protocol: Document 10/21/17 11:00 RCC (Rec: 10/21/17 11:33 RCC [id number]) Physical Therapy Current Condition Current Condition Evaluation Date 10/19/17 Treatment Diagnosis GLF; ETOH withdrawal; difficulty with walking Onset Date 10/15/17 Precautions Other Precautions falls; can be combative M3 PT-IP Subjective Start: 10/14/17 10:21 Freq: Status: Active Protocol: Document 10/28/17 16:15 RCC (Rec: 10/28/17 16:16 [facility] [id number]) Subjective Physical Therapy Visit Type Type Patient Unavailable Notes pt being interviewed with family initially this a.m. and unavailable, then with family again later this date. Will attempt to mobilize when ready tomorrow.
--- NOTE | 2017-10-28 18:33 | PC.NURSE ---
Addendum entered by Madison Mix R.N. 10/28/17 21:52: 2145 - Pt set up for snack. HS meds given. Able to eat all ice cream with assistance. Return brief to appropriate place. Dry. Warm blanket provided. Original Note: Addendum entered by Madison Mix R.N. 10/28/17 20:06: 2000 - Pt fidgets/restless in bed. Offered snack and fluid. Pt declines. Opened blinds for natural light. Attempt to reality orientation. Pt states something about four birds. Bed alarm on. Monitor. Original Note: Addendum entered by Madison Mix R.N. 10/28/17 19:14: 1900 - Pt awake. Inc of urine. Brief and linen changed. Pt calm and cooperative. Attempting to follow directions. Bed alarm on. Original Note: Pt awake, slow to respond. Family at bedside. Pt mother expressing concerns with pt LOC. She states that he cannot be properly evaluated for placement if he is not awake so she can meet the true Bradly. Reinforced treatment plan. Reassured pt family that additonal/PRN medication would not be given unless pt was at risk for harming himself or staff members. Reassured family that medication is only used as a last resort to ensure safety. Monitor.
[2017-10-28] MEDS: TRAZODONE 50 MG TABLET PO (22:04)
[2017-10-29] MEDS: HALOPERIDOL 5 MG/ML VIAL IM (00:52)
--- NOTE | 2017-10-29 01:55 | PC.NURSE ---
Incontinent of urine and bed saturated, pt crawling on all fours on bed and swinging arms. security called and 1 RN 2 CNAs and security managed to give haldol IM and change the bed and clean the patient even though agitated.
[2017-10-29 05:12] VITALS: BP 124/88; PULSE 102; RESP 16; TEMP 35.8; O2SAT 96
--- NOTE | 2017-10-29 06:48 | PC.NURSE ---
Not as easy to deal with as during manoj care and linen change tried kicking staff without warning, then calm. Emotionally labile.
--- NOTE | 2017-10-29 09:44 | PC.NURSE ---
Addendum entered by Benedicto Dunaway R.N. 10/29/17 14:40: Pt was calm and cooperative with MD on rounds. Participated in assessment and agreed to lab draw. Lab called and notified. Staff in to draw blood. Pt c/o pain after labs obtained. Provided ice pack and emotional support. Pt is calm but sad. Mom at bedside. After meeting with staff from [facility] and Dr. Hickman, plan is for pt to d/c to [facility] tomorrow afternoon. Pt and family updated and agreeable to plan of care. Original Note: Addendum entered by Benedicto Dunaway R.N. 10/29/17 12:56: Called and spoke with Dr. Bonilla. Requested clarification of orders for STAT labs. Reported pt with agitation and difficulty redirecting. MD states orders may be drawn at next available interval. Original Note: Addendum entered by Benedicto Dunaway R.N. 10/29/17 12:46: 2 PLASTIC BOAT PATCHER in to assist pt to void. Pt exhibits agitation and begins yelling. This nurse in to room. Asked pt what I could do to help him. He is confused and speech is illogical. Provided emotional support and ensured pt that he was in a safe environment. Pt currently sitting up to w/c with direct observation by sitter. Safety intact. Lab called regarding STAT labs. Pt is agitated presently so will attempt distraction and have labs drawn as tolerated. Original Note: Addendum entered by Benedicto Dunaway R.N. 10/29/17 11:32: Pt awake and alert. Speech is clear but mostly tangential and illogical. Pt is following commands with frequent cues. Able to get OOB, stand, and ambulate to nurses stations with 2PA and gait belt. Pt then sat in w/c and staff pushed around nurses station providing reorientation to place/situation. Pt is pleasant and smiling. Now sitting in w/c feeding self lunch. Sitter at bedside. Original Note: 0730- Pt drowsy but rousable to verbal/tactile stimuli. Bed bath performed. Pt confused but able to follow simple commands and participate in hygiene care. No aggressive behaviors at this time. Pt back to sleep after care performed. Sitter at bedside.
[2017-10-29] MEDS: MULTIVITAMIN 1 TABLET 1 TAB PO (10:00)
[2017-10-29] MEDS: RISPERIDONE 0.5 MG 2 MG SL ×2 (10:00→17:25)
[2017-10-29] MEDS: FOLIC ACID 1 MG TABLET PO (10:00)
[2017-10-29] MEDS: THIAMINE 100 MG TABLET PO (10:00)
[2017-10-29] MEDS: PANTOPRAZOLE 40 MG TABLET PO (10:01)
--- NOTE | 2017-10-29 10:05 | PT.IPTN ---
Current Diagnoses Metabolic encephalopathy (10/15/17) Altered mental status, unspecified (10/15/17) Physical Therapy Treatment Note M2 PT-IP Current Condition Start: 10/14/17 10:21 Freq: Status: Active Protocol: Document 10/21/17 11:00 RCC (Rec: 10/21/17 11:33 RCC [id number]) Physical Therapy Current Condition Current Condition Evaluation Date 10/19/17 Treatment Diagnosis GLF; ETOH withdrawal; difficulty with walking Onset Date 10/15/17 Precautions Other Precautions falls; can be combative M3 PT-IP Subjective Start: 10/14/17 10:21 Freq: Status: Active Protocol: Document 10/29/17 10:05 [facility] (Rec: 10/29/17 10:05 [facility] [id number]) Subjective Physical Therapy Visit Type Type Patient Unavailable Notes Checked with nursing re: pt, but they were trying to wake him up at this time. Follow up later in day.
[2017-10-29 14:32] LABS: Alanine Aminotransferase 31 IU/L (21-72); Albumin 4.6 g/dL (3.5-5.0); Albumin Globulin Ratio 1.5 (1.0-2.8); Alkaline Phosphatase 112 U/L (38-126); Ammonia (NH3) < 9.0 umol/L (9-30); Aspartate Aminotransferase 36 IU/L (17-59); BUN Creatinine Ratio 22.9 (6-22); Bilirubin Total 0.7 mg/dL (0.2-1.3); Blood Urea Nitrogen 16 mg/dL (9-20); Carbon Dioxide 29 mmol/L (22-32); Chloride 99 mmol/L (98-107); Estimated Glomerular Filt Rate > 60.0 mL/min (>60); Globulin 3.1 g/dL (1.7-4.1); Glucose 107 mg/dL (70-100); HEMOLYSIS 36 (0-50); Magnesium 2.4 mg/dL (1.6-2.3); Phosphorous 4.1 mg/dL (2.5-4.5); Potassium 4.2 mmol/L (3.4-5.1); Sodium 141 mmol/L (137-145); Total Protein 7.7 g/dL (6.3-8.2)
[2017-10-29 14:38] LABS: Add Manual Diff / Slide Review NO; Basophils Percent Auto 0.2 % (0-2); Eosinophils Percent Auto 1.2 % (2-4); Hematocrit 46.4 % (41-53); Hemoglobin 16.2 g/dL (13.5-17.5); Lymphocytes Percent Auto 12.7 % (25-40); Mean Corpuscular HGB Conc 34.8 % (30-36); Mean Corpuscular Hemoglobin 33.1 PG (26-34); Mean Corpuscular Volume 95.1 fL (80-100); Monocytes Percent Auto 9.3 % (3-14); Neutrophils Absolute Auto 6400 /uL (3000-5900); Neutrophils Percent Auto 76.6 % (50-75); Platelet Count 323 X10^3/uL (150-400); Red Blood Cell Count 4.88 X10^6/uL (4.5-5.9); Red Cell Distribution Width 12.3 % (11.6-14.8); White Blood Cell Count 8.4 X10^3/uL (4.5-11.0)
--- NOTE | 2017-10-29 15:31 | CM.DPC ---
DCP/Continued: Reviewed chart. CONTRACT ATTORNEY placed call to Dr. Hickman this AM re: meeting today with to discuss acceptance, medications, and safe d/c plan. Dr. Hickman reports that she will come to meeting today at 1:00pm. In addition CM general operations manager Isabell Ndiaye and ICU/RN notified and will be in attendance. Confirmed meeting with Leonarda at . CONTRACT ATTORNEY, Leonarda and Elisa from , Isabell Ndiaye, Dr. Hickman, and Mery ICU/RN in attendance. Per Leonarda she anticipates that they will be able to accept this patient tomorrow 10-30-17. Medications discussed with Dr. Hickman and she is in agreement to write prescriptions for psychiatric medications. Admitting paperwork received from and needs to be completed prior to transfer. CONTRACT ATTORNEY met with patient, Mother/Poornima and sister/Alejandra. Patient confused at time of visit but both Mother and sister in agreement to plan. Alejandra reports that they are meeting with Ruth Ann Torres today at approximately 2:00pm to arrange for caregivers at to start tomorrow afternoon. Leonarda reports that she cannot accept patient until caregiver services confirmed. CONTRACT ATTORNEY spoke with Dr. Walsh/attending. He is aware and agreeable to plan. Patient will require non-urgent BLS transport for safety. Medical Necessity form signed. P: once caregivers can be confirmed. Anticipate d/c tomorrow 10-30 or 10-31-17. BALAJI Crook
--- NOTE | 2017-10-29 16:17 | PT.IPTN ---
Current Diagnoses Metabolic encephalopathy (10/15/17) Altered mental status, unspecified (10/15/17) Physical Therapy Treatment Note M2 PT-IP Current Condition Start: 10/14/17 10:21 Freq: Status: Active Protocol: Document 10/21/17 11:00 [facility] (Rec: 10/21/17 11:33 [facility] [id number]) Physical Therapy Current Condition Current Condition Evaluation Date 10/19/17 Treatment Diagnosis GLF; ETOH withdrawal; difficulty with walking Onset Date 10/15/17 Precautions Other Precautions falls; can be combative M3 PT-IP Subjective Start: 10/14/17 10:21 Freq: Status: Active Protocol: Document 10/29/17 16:12 [facility] (Rec: 10/29/17 16:17 [facility] [id number]) Subjective Physical Therapy Visit Type Type Treatment Note Visit Start Time 15:30 Visit Stop Time 16:08 Total Visit Minutes 38 Physical Therapy Visit Comments Patient Comments Pt agrees to get up M4 PT-IP Mobility and Gait Start: 10/14/17 10:21 Freq: Status: Active Protocol: Document 10/29/17 16:12 [facility] (Rec: 10/29/17 16:17 [facility] [id number]) PT-Bed Mobility Assessment Supine to Sit Supine to Sit Moderate Assistance 1 Person Assistance Scooting Scooting to Edge of Bed Minimal Assistance PT-Transfer Assessment Sit to and From Stand Sit to and from Stand Moderate Assistance 1 Person Assistance 2 Person Assistance Transfers Transfer Destination Bed Comments Mobility Comments sit to stand from bed mod A; mod A x1 for w/c sit to stand 2x; mod A x2 for transfer to bed Gait Assessment Gait Gait Assistance Required: Moderate Assistance 2 Person Assist Distance (Feet) (feet) 70 Assistive Devices Assistive Device Gait Belt Comments Gait Comments 2 person hand hold assist with w/c follow; amb about 25ft then 20ft then 25 ft M5 PT-IP Objective Assessments Start: 10/14/17 10:21 Freq: Status: Active Protocol: Document 10/21/17 11:00 [facility] (Rec: 10/21/17 11:33 [facility] [id number]) Orientation Orientation/Cognition Level of Alertness Confusional State Gross Range of Motion Upper Extremity ROM Impairments Impaired LUE ROM, holding it toward his midline in sitting but able to use it in standing when holding FWW. M6 PT-IP Treatment Start: 10/14/17 10:21 Freq: Status: Active Protocol: Document 10/23/17 15:30 AB (Rec: 10/23/17 16:48 AB [id number]) Physical Therapy Treatment Education Education Provided Safety M7 PT-IP Assessment and Plan Start: 10/14/17 10:21 Freq: Status: Active Protocol: Document 10/29/17 16:12 [facility] (Rec: 10/29/17 16:17 [facility] [id number]) PT Summary Assessment and Plan Summary Assessment Summary 2 assist required for all activities. Pt requires 1 step commands and has difficulty following these. He was cooperative with amb today but did sit without notice so w/c follow required. Frequency of Treatment Frequency Of Treatment Once a Day Recommendations To Nursing Amount of Assist Needed 2 Person Assist Discharge Recommendations PT Discharge Recommendations SNF Rehab
--- NOTE | 2017-10-29 18:06 | PM.CN ---
History of Present Illness Chief complaint: found on ground, etoh on board Requesting provider: Jose Maria Calderon Narrative: UPDATED HOSPITAL COURSE: -VS consistent & largely stable over the weekend -Behavior continues to be unpredictable, agitated at times -Visit from [facility] yesterday, see NIGHT WORKER note 10/27/18; to come again at approximately 1300 today -PRN meds: lorazepam 1mg IM 10/28 00:18, lorazepam 1mg IM 10/27 at 19:00; Haldol 5mg IM 10/29 00:52 -risperidone decreased to 1mg BID on Sunday, then switched back to 2mg BID on 10/27 -on trazodone 50mg PO QHS through the weekend COLLATERAL FROM STAFF: -agitation appears most consistent related to when patient is unable to communicate needs such as urination or bowel movement, and then unable to follow through on completing these functions. As needed dose of Haldol other lorazepam helps him calm down and fall asleep and then he is typically incontinent and calmer upon awakening -sleep at night is not consistent, no clear impact from trazodone in that regard INTERVIEW: Bradly reports feeling frustrated today, eludes to sister and family but states he does not want to talk about it. He denies anything physically bothering him today. ?Can I just get a drink?? I discussed that I was concerned about alcohol use and that this had, and my perspective, really impacted his ability to think clearly recently, and I recommend no further alcohol use. He states he?ll think about it. He denies feeling unsafe in the hospital. I comment that he seems to be able to communicate more clearly, he agrees. Later he becomes distracted & less able to answer questions appropriately. Able to identify a pen ?are you kidding me? A pen!? but not able to read the date from the whiteboard when asked. Met with staff from [facility] and healthcare management consultant staff, facility can likely except patient for transfer tomorrow. We discussed medication issues related to discharge, I agreed that I can prescribe psychotropic medications including risperidone, trazodone. Leonarda states that as needed Haldol as p.o. would be helpful in case of severe agitation, and they also have good results from ABH gel which she clarifies is a combination of Ativan, Benadryl, Haldol given topically as needed for agitation. [facility] Medical History Alcohol abuse (Chronic) Dementia (Chronic) GERD (gastroesophageal reflux disease) (Chronic) Surgical History Status post lateral meniscus repair (Chronic) H/O inguinal hernia repair (Resolved) Social History household members: none Smoking Status: Former smoker alcohol intake: current substance use type: does not use Meds Home Medications Medication Instructions Recorded Confirmed Type acetaminophen [Tylenol Extra 1,000 mg PO BID PRN 09/28/17 10/14/17 History Strength] coconut oil 1 cap PO DAILY 09/28/17 10/14/17 History omeprazole 40 mg PO DAILY 09/28/17 10/14/17 History Allergies Allergy/AdvReac Type Severity Reaction Status Date / Time morphine [MORPHINE] Allergy Severe iv caused Verified 10/13/17 13:51 red line Review of Systems Review of Systems unobtainable due to mental condition Exam Vital Signs (past 8 hours): Oxygen Delivery Method Room Air Oxygen Flow Rate 0 Narrative Exam Narrative: MENTAL STATUS EXAM: Appearance: thin, fair-skinned male with pérez hair, wearing hospital garb Behavior: some psychomotor slowing, sitting in wheelchair, no tremor observed Speech: loud volume, mumbles at times Mood: ?ok? Affect: irritable, constricted Thought process: disorganized, tangential, perseverative, possibly responding to internal stimuli Thought content: unable to fully assessed based on altered mental status, no clear evidence of SI or HI, does not endorse hallucinations to this provider, suspect paranoia Memory: Impaired, unable to formally test due to cognitive deficits & mental status Attention: Poor Orientation: to self only Insight: Poor Judgment: Poor Objective Labs Result Diagrams: 10/29/17 14:06 10/29/17 Unknown Labs: Laboratory Results - last 24 hr 10/29/17 10/29/17 10/29/17 14:06 Unknown Unknown WBC 8.4 RBC 4.88 Hgb 16.2 Hct 46.4 MCV 95.1 MCH 33.1 MCHC 34.8 RDW 12.3 Plt Count 323 Neut % (Auto) 76.6 H Lymph % (Auto) 12.7 L [place] % (Auto) 9.3 Eos % (Auto) 1.2 L Baso % (Auto) 0.2 Neut # (Auto) 6400 H Sodium 141 Potassium 4.2 Chloride 99 Carbon Dioxide 29 BUN 16 Creatinine 0.70 Estimated GFR > 60.0 BUN/Creatinine Ratio 22.9 H Glucose 107 H Calcium 10.0 Phosphorus 4.1 Magnesium 2.4 H Total Bilirubin 0.7 AST 36 ALT 31 Alkaline Phosphatase 112 Ammonia < 9.0 L Total Protein 7.7 Albumin 4.6 Globulin 3.1 Albumin/Globulin Ratio 1.5 EK10/24/17: Sinus tachycardia, rate 102, QTC 457 10/28/17: Sinus tachycardia, rate 98, QTC 442 Assessment & Plan Plan: Assessment/Plan Narrative: ASSESSMENT: Bradly Boston is a 57-year-old male with known history of dementia (Alzheimer's versus frontotemporal) admitted after found down, treated for presumed alcohol withdrawal. His initial clinical course was not typical for alcohol withdrawal, requiring very little lorazepam. His current presentation is a significant and acute change from his baseline, which is less typical for a dementia process outside of a vascular change. He is certainly disorganized, unable to sustain attention or follow commands. His presentation is consistent with delirium, and I want to make sure any medical etiology that could contribute to an acute change has been ruled out. Urine drug screen was not done on admission, I suspect urine was difficult to obtain, and I wonder about any other substance use in addition to alcohol. MRI & MRA did not show a causative factor for his symptoms, no stroke or other lesion. Labwork including TSH, folate, B12 have been normal. Treatment for presumed Wernicke?s encephalopathy did not offer noticeable results, with 1 day of IV treatment & 1 day of IM treatment. He shows some improvement today, with more organization in thought process than previous, but this still fluctuates even during the course of our interview today. He was evaluated to still not meet involuntary criteria when evaluated by DCR. Patient now has a likely placement option, in a facility with Memory Care experience, and I am happy to support this plan. I agreed to prescribe psychotropic medication upon discharge, and will discuss with PCP Dr. Calderon for outpatient plan. If he would prefer that I manage the psychotropic medications, I will need to see patient in my clinic as an outpatient. Facility also requests Haldol p.o. as needed for severe agitation & ABH gel as needed. I am comfortable with this for now, but in the future, if he is responding well to Haldol and needing consistent dosing of as needed, we may consider switch from risperidone to Haldol to use only 1 antipsychotic agent at a time. Overall, scheduled risperidone does appear to provide some benefit, although this is not completely clear. QTC was within normal limits, so no concern for QTC prolongation with scheduled risperidone at this time I also recommend visit with Neurology as an outpatient, patient is seen Dr. Hudson previously, so follow up with him would be ideal. I do think there is a neurologic component that we have not yet identified which may be contributing to current presentation. DIAGNOSES: Delirium of unknown etiology (Rule out Wernicke's Encephalopathy) Moderate to severe dementia (Alzheimer?s vs. frontotemporal) RECOMMENDATIONS: - continue thiamine PO 100mg daily - continue trazodone 50mg PO QHS, ok to repeat as needed for insomnia - Continue risperidone 2mg PO BID - Delirium precautions as you are doing, including normalizing sleep/wake cycle as much as possible, frequent re-orientation, access to glasses if needed, maintain hydration & nutrition status as possible, avoid medicaitons which can worsen delirium (particularly benzodiazepines, opioids, anticholinergics) - Referral to neurology as an outpatient - thank you for involving me in this patient's care. I will be off-campus until Sunday 10/29, but am available via cell & have communicated this contact info to staff. I will plan to check-in with team & patient on 10/29/17 if pt is still in our care. I appreciate the excellent care with this challenging case. I will write outpatient prescriptions for: - Risperidone 2mg PO BID - Haldol 2mg PO q4h prn severe agitation not responding to other measures - Trazodone 50mg PO QHS, ok to repeat in 60 min as needed for insomnia - Compounded cream: Ativan 0.5mg, Benadryl 12.5mg, Haldol 0.5mg, 1ml topical q2h prn agitation (this provider to discuss prescription with pharmacy, as this is not something I typically prescribed) Time Spent With Patient Time with patient: 25 - 35 minutes
--- NOTE | 2017-10-29 18:09 | P.CONS_ITS ---
History of Present Illness Chief complaint: found on ground, etoh on board Requesting provider: Jose Maria Calderon Narrative: UPDATED HOSPITAL COURSE: -VS consistent & largely stable over the weekend -Behavior continues to be unpredictable, agitated at times -Visit from [facility] yesterday, see CORPORATE QUALITY MANAGER note 10/27/18; to come again at approximately 1300 today -PRN meds: lorazepam 1mg IM 10/28 00:18, lorazepam 1mg IM 10/27 at 19:00; Haldol 5mg IM 10/29 00:52 -risperidone decreased to 1mg BID on Sunday, then switched back to 2mg BID on 10/27 -on trazodone 50mg PO QHS through the weekend COLLATERAL FROM STAFF: -agitation appears most consistent related to when patient is unable to communicate needs such as urination or bowel movement, and then unable to follow through on completing these functions. As needed dose of Haldol other lorazepam helps him calm down and fall asleep and then he is typically incontinent and calmer upon awakening -sleep at night is not consistent, no clear impact from trazodone in that regard INTERVIEW: Bradly reports feeling frustrated today, eludes to sister and family but states he does not want to talk about it. He denies anything physically bothering him today. ?Can I just get a drink?? I discussed that I was concerned about alcohol use and that this had, and my perspective, really impacted his ability to think clearly recently, and I recommend no further alcohol use. He states he ?ll think about it. He denies feeling unsafe in the hospital. I comment that he seems to be able to communicate more clearly, he agrees. Later he becomes distracted & less able to answer questions appropriately. Able to identify a pen ?are you kidding me? A pen!? but not able to read the date from the whiteboard when asked. Met with staff from [facility] and career services manager staff, facility can likely except patient for transfer tomorrow. We discussed medication issues related to discharge, I agreed that I can prescribe psychotropic medications including risperidone, trazodone. Leonarda states that as needed Haldol as p.o. would be helpful in case of severe agitation, and they also have good results from ABH gel which she clarifies is a combination of Ativan, Benadryl, Haldol given topically as needed for agitation. [facility] Medical History Alcohol abuse (Chronic) Dementia (Chronic) GERD (gastroesophageal reflux disease) (Chronic) Surgical History Status post lateral meniscus repair (Chronic) H/O inguinal hernia repair (Resolved) Social History household members: none Smoking Status: Former smoker alcohol intake: current substance use type: does not use Meds Home Medications Medication Instructions Recorded Confirmed Type acetaminophen [Tylenol Extra 1,000 mg PO BID PRN 09/28/17 10/14/17 History Strength] coconut oil 1 cap PO DAILY 09/28/17 10/14/17 History omeprazole 40 mg PO DAILY 09/28/17 10/14/17 History Allergies Allergy/AdvReac Type Severity Reaction Status Date / Time morphine [MORPHINE] Allergy Severe iv caused Verified 10/13/17 13:51 red line Review of Systems Review of Systems unobtainable due to mental condition Exam Vital Signs (past 8 hours): Oxygen Delivery Method Room Air Oxygen Flow Rate 0 Narrative Exam Narrative: MENTAL STATUS EXAM: Appearance: thin, fair-skinned male with pérez hair, wearing hospital garb Behavior: some psychomotor slowing, sitting in wheelchair, no tremor observed Speech: loud volume, mumbles at times Mood: ?ok? Affect: irritable, constricted Thought process: disorganized, tangential, perseverative, possibly responding to internal stimuli Thought content: unable to fully assessed based on altered mental status, no clear evidence of SI or HI, does not endorse hallucinations to this provider, suspect paranoia Memory: Impaired, unable to formally test due to cognitive deficits & mental status Attention: Poor Orientation: to self only Insight: Poor Judgment: Poor Objective Labs Result Diagrams: 10/29/17 14:06 10/29/17 Unknown Labs: Laboratory Results - last 24 hr 10/29/17 10/29/17 10/29/17 14:06 Unknown Unknown WBC 8.4 RBC 4.88 Hgb 16.2 Hct 46.4 MCV 95.1 MCH 33.1 MCHC 34.8 RDW 12.3 Plt Count 323 Neut % (Auto) 76.6 H Lymph % (Auto) 12.7 L [place] % (Auto) 9.3 Eos % (Auto) 1.2 L Baso % (Auto) 0.2 Neut # (Auto) 6400 H Sodium 141 Potassium 4.2 Chloride 99 Carbon Dioxide 29 BUN 16 Creatinine 0.70 Estimated GFR > 60.0 BUN/Creatinine Ratio 22.9 H Glucose 107 H Calcium 10.0 Phosphorus 4.1 Magnesium 2.4 H Total Bilirubin 0.7 AST 36 ALT 31 Alkaline Phosphatase 112 Ammonia < 9.0 L Total Protein 7.7 Albumin 4.6 Globulin 3.1 Albumin/Globulin Ratio 1.5 EK10/24/17: Sinus tachycardia, rate 102, QTC 457 10/28/17: Sinus tachycardia, rate 98, QTC 442 Assessment & Plan Plan: Assessment/Plan Narrative: ASSESSMENT: Bradly Boston is a 57-year-old male with known history of dementia (Alzheimer's versus frontotemporal) admitted after found down, treated for presumed alcohol withdrawal. His initial clinical course was not typical for alcohol withdrawal , requiring very little lorazepam. His current presentation is a significant and acute change from his baseline, which is less typical for a dementia process outside of a vascular change. He is certainly disorganized, unable to sustain attention or follow commands. His presentation is consistent with delirium, and I want to make sure any medical etiology that could contribute to an acute change has been ruled out. Urine drug screen was not done on admission , I suspect urine was difficult to obtain, and I wonder about any other substance use in addition to alcohol. MRI & MRA did not show a causative factor for his symptoms, no stroke or other lesion. Labwork including TSH, folate, B12 have been normal. Treatment for presumed Wernicke?s encephalopathy did not offer noticeable results, with 1 day of IV treatment & 1 day of IM treatment. He shows some improvement today, with more organization in thought process than previous, but this still fluctuates even during the course of our interview today. He was evaluated to still not meet involuntary criteria when evaluated by DCR. Patient now has a likely placement option, in a facility with Memory Care experience, and I am happy to support this plan. I agreed to prescribe psychotropic medication upon discharge, and will discuss with PCP Dr. Calderon for outpatient plan. If he would prefer that I manage the psychotropic medications, I will need to see patient in my clinic as an outpatient. Facility also requests Haldol p.o. as needed for severe agitation & ABH gel as needed. I am comfortable with this for now, but in the future, if he is responding well to Haldol and needing consistent dosing of as needed, we may consider switch from risperidone to Haldol to use only 1 antipsychotic agent at a time. Overall, scheduled risperidone does appear to provide some benefit, although this is not completely clear. QTC was within normal limits, so no concern for QTC prolongation with scheduled risperidone at this time I also recommend visit with Neurology as an outpatient, patient is seen Dr. Hudson previously, so follow up with him would be ideal. I do think there is a neurologic component that we have not yet identified which may be contributing to current presentation. DIAGNOSES: Delirium of unknown etiology (Rule out Wernicke's Encephalopathy) Moderate to severe dementia (Alzheimer?s vs. frontotemporal) RECOMMENDATIONS: - continue thiamine PO 100mg daily - continue trazodone 50mg PO QHS, ok to repeat as needed for insomnia - Continue risperidone 2mg PO BID - Delirium precautions as you are doing, including normalizing sleep/wake cycle as much as possible, frequent re-orientation, access to glasses if needed, maintain hydration & nutrition status as possible, avoid medicaitons which can worsen delirium (particularly benzodiazepines, opioids, anticholinergics) - Referral to neurology as an outpatient - thank you for involving me in this patient's care. I will be off-campus until Sunday 10/29, but am available via cell & have communicated this contact info to staff. I will plan to check-in with team & patient on 10/29/17 if pt is still in our care. I appreciate the excellent care with this challenging case. I will write outpatient prescriptions for: - Risperidone 2mg PO BID - Haldol 2mg PO q4h prn severe agitation not responding to other measures - Trazodone 50mg PO QHS, ok to repeat in 60 min as needed for insomnia - Compounded cream: Ativan 0.5mg, Benadryl 12.5mg, Haldol 0.5mg, 1ml topical q2h prn agitation (this provider to discuss prescription with pharmacy, as this is not something I typically prescribed) Time Spent With Patient Time with patient: 25 - 35 minutes
--- NOTE | 2017-10-29 19:07 | PC.NURSE ---
Patient seen by physical therapy- ambulated in hallway- then assisted to wheelchair. See PT note. Patient able to verbalize some needs- then speech becomes unfocused and nonscensical. Back to bed after ambulated with physical therapy. Patient had legs out of the bed- and became irritated and started yelling. Verbalizing that he feels he is being betrayed or lied too- in regards to transfer to [facility] tomorrow. Asking for his sister- saying she should have dinner. Explained she is going to [facility].
--- NOTE | 2017-10-29 19:08 | PM.PN.1 ---
Subjective Date Patient Seen: 10/29/17 Time Patient Seen: 14:32 Interval history: History of present illness Follow-up on patient with continued impairment in cognition. Assortment of causation has been considered including frontal temporal dementia, Alzheimer's, Korsakoff syndrome and the ill untoward effects of prior epidural hematoma noted most recently as epidural hygromas. Review of systems Patient denies having any chest pain or shortness of breath or nausea at this time. Exam Vital Signs (past 8 hours): Oxygen Delivery Method Room Air Oxygen Flow Rate 0 Narrative Exam Narrative: Patient is noted at this time cooperative. Patient is awake and alert. Patient's mother and sister have been visiting the patient at bedside before my exam. Const General: cooperative, healthy appearing, comfortable, well developed, well groomed and No acute distress Eyes Other: Patient clearly with double vision on exam. Patient is noting 2 fingers as for fingers 1 fingers 2 fingers. Chest Chest: normal inspection of the chest, No localized rib tenderness with anteroposterior compression and No mass Resp Effort & Inspection: normal respiratory effort Auscultation: clear to auscultation bilaterally, no crackles and no wheezes Cardio Palpation: normal PMI Rate: regular rate Rhythm: regular rhythm Heart Sounds: no gallops, no murmurs and no rubs GI Inspection: normal to inspection Palpation: soft, No guarding, No hernia, No mass and No pulsatile mass Percussion: normal to percussion Auscultation: normal bowel sounds Skin General: No jaundice Lesions: no lesions Rashes: no rashes Neuro General: alert, awake and oriented (Self only) Cognition: abnormal cognition Speech: speech normal Gait: gait abnormal and ataxic Motor: movement abnormality noted and No tremor Sensory Exam: no sensory deficits noted Objective Labs Result Diagrams: 10/29/17 14:06 10/29/17 Unknown Labs: Laboratory Results - last 24 hr 10/29/17 10/29/17 10/29/17 14:06 Unknown Unknown WBC 8.4 RBC 4.88 Hgb 16.2 Hct 46.4 MCV 95.1 MCH 33.1 MCHC 34.8 RDW 12.3 Plt Count 323 Neut % (Auto) 76.6 H Lymph % (Auto) 12.7 L [place] % (Auto) 9.3 Eos % (Auto) 1.2 L Baso % (Auto) 0.2 Neut # (Auto) 6400 H Sodium 141 Potassium 4.2 Chloride 99 Carbon Dioxide 29 BUN 16 Creatinine 0.70 Estimated GFR > 60.0 BUN/Creatinine Ratio 22.9 H Glucose 107 H Calcium 10.0 Phosphorus 4.1 Magnesium 2.4 H Total Bilirubin 0.7 AST 36 ALT 31 Alkaline Phosphatase 112 Ammonia < 9.0 L Total Protein 7.7 Albumin 4.6 Globulin 3.1 Albumin/Globulin Ratio 1.5 Assessment & Plan Plan: Assessment/Plan Narrative: 1. Metabolic encephalopathy. Alcohol syndrome noted on admission. Patient noted is agitated at times with suspected underlying psychiatric disorder. No infectious etiology suspected during hospital stay. Psychiatrist Dr Hickman is assessing the patient today. Psychotrophic medications to be determined by Dr Hickman, who normally sees patient in outpatient setting. Recently patient provided Risperdal with prn haldol and ativan. 3. Alcoholism with alcohol withdrawal syndrome resolved during hospital course. Requested follow up ammonia level and magnesium, phosphorus level today. 4. Dementia: Alzheimer type versus frontotemporal dementia suspected during hospital course. The patient's mother notes patient's father with history of Alzheimer's and patient with dementia for past five years, according to mother. 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 Gait ataxia is also well described. Patient also noted with multiple areas of exidural hygromas, which likely reflect prior epidural hematomes secondary to head trauma. At this time imaging does not describe any findings that suggest there is any impingement onto the brain parenchyma, though prior history of hematomas could have had a significant neurologic insult that can result in senior care neurological disability. It is difficult to elucidate the causal events that have led to the patient's present condition. DVT prophylaxis: daily sq Lovenox TIME FOR CARE OF PATIENT: 35 minutes. DISCHARGE PLANNING Patient was interviewed by [facility] yesterday and again today. Possible transfer to [facility] if family can provide added 1:1 support for patient's safety while at [facility]. Quality VTE Deep Vein Thrombosis/Pulmonary Embolism Present on Admission: No
--- NOTE | 2017-10-29 19:40 | P.PN_ITS ---
Subjective Date Patient Seen: 10/29/17 Time Patient Seen: 14:32 Interval history: History of present illness Follow-up on patient with continued impairment in cognition. Assortment of causation has been considered including frontal temporal dementia, Alzheimer's, Korsakoff syndrome and the ill untoward effects of prior epidural hematoma noted most recently as epidural hygromas. Review of systems Patient denies having any chest pain or shortness of breath or nausea at this time. Exam Vital Signs (past 8 hours): Oxygen Delivery Method Room Air Oxygen Flow Rate 0 Narrative Exam Narrative: Patient is noted at this time cooperative. Patient is awake and alert. Patient's mother and sister have been visiting the patient at bedside before my exam. Const General: cooperative, healthy appearing, comfortable, well developed, well groomed and No acute distress Eyes Other: Patient clearly with double vision on exam. Patient is noting 2 fingers as for fingers 1 fingers 2 fingers. Chest Chest: normal inspection of the chest, No localized rib tenderness with anteroposterior compression and No mass Resp Effort & Inspection: normal respiratory effort Auscultation: clear to auscultation bilaterally, no crackles and no wheezes Cardio Palpation: normal PMI Rate: regular rate Rhythm: regular rhythm Heart Sounds: no gallops, no murmurs and no rubs GI Inspection: normal to inspection Palpation: soft, No guarding, No hernia, No mass and No pulsatile mass Percussion: normal to percussion Auscultation: normal bowel sounds Skin General: No jaundice Lesions: no lesions Rashes: no rashes Neuro General: alert, awake and oriented (Self only) Cognition: abnormal cognition Speech: speech normal Gait: gait abnormal and ataxic Motor: movement abnormality noted and No tremor Sensory Exam: no sensory deficits noted Objective Labs Result Diagrams: 10/29/17 14:06 10/29/17 Unknown Labs: Laboratory Results - last 24 hr 10/29/17 10/29/17 10/29/17 14:06 Unknown Unknown WBC 8.4 RBC 4.88 Hgb 16.2 Hct 46.4 MCV 95.1 MCH 33.1 MCHC 34.8 RDW 12.3 Plt Count 323 Neut % (Auto) 76.6 H Lymph % (Auto) 12.7 L [place] % (Auto) 9.3 Eos % (Auto) 1.2 L Baso % (Auto) 0.2 Neut # (Auto) 6400 H Sodium 141 Potassium 4.2 Chloride 99 Carbon Dioxide 29 BUN 16 Creatinine 0.70 Estimated GFR > 60.0 BUN/Creatinine Ratio 22.9 H Glucose 107 H Calcium 10.0 Phosphorus 4.1 Magnesium 2.4 H Total Bilirubin 0.7 AST 36 ALT 31 Alkaline Phosphatase 112 Ammonia < 9.0 L Total Protein 7.7 Albumin 4.6 Globulin 3.1 Albumin/Globulin Ratio 1.5 Assessment & Plan Plan: Assessment/Plan Narrative: 1. Metabolic encephalopathy. Alcohol syndrome noted on admission. Patient noted is agitated at times with suspected underlying psychiatric disorder. No infectious etiology suspected during hospital stay. Psychiatrist Dr Hickman is assessing the patient today. Psychotrophic medications to be determined by Dr Hickman, who normally sees patient in outpatient setting. Recently patient provided Risperdal with prn haldol and ativan. 3. Alcoholism with alcohol withdrawal syndrome resolved during hospital course. Requested follow up ammonia level and magnesium, phosphorus level today. 4. Dementia: Alzheimer type versus frontotemporal dementia suspected during hospital course. The patient's mother notes patient's father with history of Alzheimer's and patient with dementia for past five years, according to mother. 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 Gait ataxia is also well described. Patient also noted with multiple areas of exidural hygromas, which likely reflect prior epidural hematomes secondary to head trauma. At this time imaging does not describe any findings that suggest there is any impingement onto the brain parenchyma, though prior history of hematomas could have had a significant neurologic insult that can result in jail neurological disability. It is difficult to elucidate the causal events that have led to the patient's present condition. DVT prophylaxis: daily sq Lovenox TIME FOR CARE OF PATIENT: 35 minutes. DISCHARGE PLANNING Patient was interviewed by [facility] yesterday and again today. Possible transfer to [facility] if family can provide added 1:1 support for patient's safety while at [facility]. Quality VTE Deep Vein Thrombosis/Pulmonary Embolism Present on Admission: No
[2017-10-29] MEDS: TRAZODONE 50 MG TABLET PO (21:15)
--- NOTE | 2017-10-29 22:48 | PC.NURSE ---
Patient able to void in urinal with assistance- lying in bed with head at foot of bed- still calling out yulissa.
--- NOTE | 2017-10-30 01:09 | PC.NURSE ---
Addendum entered by Elaine Edge R.N. 10/30/17 06:57: Patient dozed for a bit, awake now, rattling bed rails, slightly angry and resistive, able to administer PO respiradol with one bite of pudding. Original Note: Addendum entered by Elaine Edge R.N. 10/30/17 04:54: [id number] is awake, restless, anxious, but not combative. Fearful, talking about things in my house where are we going to put them and saying I have to find my boys they mean the world to me Stayed with patient, allowing him to talk and express feelings, rambling speech at times, some visual and auditory hallucinations noted. Incontinent, brief changed, drank two chocolate milks and ate little pudding with prompting. Original Note: Addendum entered by Elaine Edge R.N. 10/30/17 02:47: Patient is awake, had pulled his brief off and through it on the floor, he is drowsy but talkative, mostly talking to self, was calm enough for staff to replace fresh pull-up and get his legs back into bed without incident. Original Note: Patient has been resting with occasional bouts of pulling on seizure pads and yelling out Alejandra. Brief is down around thighs, dry, will not allow staff to pull them up in place, linen is dry, he says yes darling when asked if he is comfortable. Covered with blanket, says thank you. Will allow him to rest, curtain open with continuous 1:1 monitoring.
[2017-10-30] MEDS: PANTOPRAZOLE 40 MG TABLET PO (06:33)
[2017-10-30] MEDS: RISPERIDONE 0.5 MG 2 MG SL (06:33)
[2017-10-30] MEDS: MULTIVITAMIN 1 TABLET 1 TAB PO (08:38)
[2017-10-30] MEDS: THIAMINE 100 MG TABLET PO (08:38)
[2017-10-30] MEDS: FOLIC ACID 1 MG TABLET PO (08:38)
[2017-10-30 09:38] VITALS: O2SAT 95
--- NOTE | 2017-10-30 09:56 | PC.NURSE ---
Addendum entered by Terri Cardensa R.N. 10/30/17 14:05: pt premedicated for transport as requested by ambulance staff/[facility] staff- family left due to increased agitation of pt- awaiting ambulance transport team Original Note: pt mostly appropriate this am - able to feed self hand held food for breakfast, swallowed am medication in chocolate pudding ( whole pills)- talkative with staff and laughed a bit with staff although speech is random in content - large urinary incont episode this am but allowed staff to bath and linen change
[2017-10-30 10:03] VITALS: BP 132/82; PULSE 103; RESP 16; TEMP 36.4; O2SAT 100
--- NOTE | 2017-10-30 10:54 | PM.CN ---
History of Present Illness Chief complaint: found on ground, etoh on board Narrative: UPDATED HOSPITAL COURSE: No significant change since yesterday, planning for d/c to [facility] today. No prn medications overnight INTERVIEW: Bradly reports doing well this morning, ?good actually!? he mentions one thing being a problem, grabs Velcro on side of bed & references to it, but states it?s fine for now He reports sleeping well ?I must have!? Staff report consistent presentation [facility] Medical History Alcohol abuse (Chronic) Dementia (Chronic) GERD (gastroesophageal reflux disease) (Chronic) Surgical History Status post lateral meniscus repair (Chronic) H/O inguinal hernia repair (Resolved) Social History household members: none Smoking Status: Former smoker alcohol intake: current substance use type: does not use Meds Home Medications Medication Instructions Recorded Confirmed Type acetaminophen [Tylenol Extra 1,000 mg PO BID PRN 09/28/17 10/14/17 History Strength] coconut oil 1 cap PO DAILY 09/28/17 10/14/17 History omeprazole 40 mg PO DAILY 09/28/17 10/14/17 History ABH 1 gram TOP Q2H PRN 30 Days #30 gram 10/30/17 Rx haloperidol 2 mg tablet 2 mg PO Q6H PRN 30 Days #30 tab 10/30/17 Rx risperidone 2 mg tablet 2 mg PO BID 30 Days #60 tab 10/30/17 Rx trazodone 50 mg tablet 50 mg PO BEDTIME 30 Days #60 tab 10/30/17 Rx Allergies Allergy/AdvReac Type Severity Reaction Status Date / Time morphine [MORPHINE] Allergy Severe iv caused Verified 10/13/17 13:51 red line Review of Systems Review of Systems unobtainable due to mental condition Exam Vital Signs (past 8 hours): - 10/30/17 09:38 10/30/17 10:03 Temperature 97.5 F L Pulse Rate 103 H Respiratory Rate 16 Blood Pressure 132/82 H Pulse Oximetry 95 100 Oxygen Delivery Method Room Air Oxygen Flow Rate 0 Narrative Exam Narrative: MENTAL STATUS EXAM: Appearance: thin, fair-skinned male with pérez hair, wearing hospital garb Behavior: some psychomotor slowing, sitting in bed, no tremor observed Speech: loud volume, mumbles at times Mood: ?ok? Affect: pleasant Thought process: disorganized, tangential Thought content: unable to fully assessed based on altered mental status, no clear evidence of SI or HI, does not endorse hallucinations to this provider Memory: Impaired, unable to formally test due to cognitive deficits & mental status Attention: Poor Orientation: to self only Insight: Poor Judgment: Poor Objective Labs Result Diagrams: 10/29/17 14:06 10/29/17 Unknown Labs: Laboratory Results - last 24 hr 10/29/17 10/29/17 10/29/17 14:06 Unknown Unknown WBC 8.4 RBC 4.88 Hgb 16.2 Hct 46.4 MCV 95.1 MCH 33.1 MCHC 34.8 RDW 12.3 Plt Count 323 Neut % (Auto) 76.6 H Lymph % (Auto) 12.7 L [place] % (Auto) 9.3 Eos % (Auto) 1.2 L Baso % (Auto) 0.2 Neut # (Auto) 6400 H Sodium 141 Potassium 4.2 Chloride 99 Carbon Dioxide 29 BUN 16 Creatinine 0.70 Estimated GFR > 60.0 BUN/Creatinine Ratio 22.9 H Glucose 107 H Calcium 10.0 Phosphorus 4.1 Magnesium 2.4 H Total Bilirubin 0.7 AST 36 ALT 31 Alkaline Phosphatase 112 Ammonia < 9.0 L Total Protein 7.7 Albumin 4.6 Globulin 3.1 Albumin/Globulin Ratio 1.5 Assessment & Plan (1) Altered mental status: Qualifiers: Altered mental status type: unspecified Coma depth: Coma timing: Qualified Code(s): R41.82 - Altered mental status, unspecified Current visit: Yes Status: Acute Plan: Assessment/Plan Narrative: See this ad copy writer's 10/29/17 note for full assessment & recommendations. Brief summary: 57yoM with dementia, this provider consulted for significant agitation. No causative factor determined, suspect possible neurologic insult, underlying dementia, ongoing alochol use as contributing factors. He has responded somewhat to risperidone during hospital stay, and will plan to continue upon discharge which is anticipated for today. RECOMMENDATIONS: - continue thiamine PO 100mg daily - continue trazodone 50mg PO QHS, ok to repeat as needed for insomnia - Continue risperidone 2mg PO BID - Referral to neurology as an outpatient - Coordinate care with PCP, to discern whether regular f/u with this ad copy writer vs. PCP consultation is most appropriate - Patient will need new patient packet for Dr. Hickman?s clinic if needing to schedule outpatient visit. I have written outpatient prescriptions for: - Risperidone 2mg PO BID - Haldol 2mg PO q4h prn severe agitation not responding to other measures - Trazodone 50mg PO QHS, ok to repeat in 60 min as needed for insomnia - Compounded cream: Ativan 0.5mg, Benadryl 12.5mg, Haldol 0.5mg, 1g topical q2h prn agitation Time Spent With Patient Time with patient: less than 15 minutes
--- NOTE | 2017-10-30 11:01 | P.CONS_ITS ---
History of Present Illness Chief complaint: found on ground, etoh on board Narrative: UPDATED HOSPITAL COURSE: No significant change since yesterday, planning for d/c to [facility] today. No prn medications overnight INTERVIEW: Bradly reports doing well this morning, ?good actually!? he mentions one thing being a problem, grabs Velcro on side of bed & references to it, but states it? s fine for now He reports sleeping well ?I must have!? Staff report consistent presentation [facility] Medical History Alcohol abuse (Chronic) Dementia (Chronic) GERD (gastroesophageal reflux disease) (Chronic) Surgical History Status post lateral meniscus repair (Chronic) H/O inguinal hernia repair (Resolved) Social History household members: none Smoking Status: Former smoker alcohol intake: current substance use type: does not use Meds Home Medications Medication Instructions Recorded Confirmed Type acetaminophen [Tylenol Extra 1,000 mg PO BID PRN 09/28/17 10/14/17 History Strength] coconut oil 1 cap PO DAILY 09/28/17 10/14/17 History omeprazole 40 mg PO DAILY 09/28/17 10/14/17 History ABH 1 gram TOP Q2H PRN 30 Days #30 gram 10/30/17 Rx haloperidol 2 mg tablet 2 mg PO Q6H PRN 30 Days #30 tab 10/30/17 Rx risperidone 2 mg tablet 2 mg PO BID 30 Days #60 tab 10/30/17 Rx trazodone 50 mg tablet 50 mg PO BEDTIME 30 Days #60 tab 10/30/17 Rx Allergies Allergy/AdvReac Type Severity Reaction Status Date / Time morphine [MORPHINE] Allergy Severe iv caused Verified 10/13/17 13:51 red line Review of Systems Review of Systems unobtainable due to mental condition Exam Vital Signs (past 8 hours): - 10/30/17 09:38 10/30/17 10:03 Temperature 97.5 F L Pulse Rate 103 H Respiratory Rate 16 Blood Pressure 132/82 H Pulse Oximetry 95 100 Oxygen Delivery Method Room Air Oxygen Flow Rate 0 Narrative Exam Narrative: MENTAL STATUS EXAM: Appearance: thin, fair-skinned male with pérez hair, wearing hospital garb Behavior: some psychomotor slowing, sitting in bed, no tremor observed Speech: loud volume, mumbles at times Mood: ?ok? Affect: pleasant Thought process: disorganized, tangential Thought content: unable to fully assessed based on altered mental status, no clear evidence of SI or HI, does not endorse hallucinations to this provider Memory: Impaired, unable to formally test due to cognitive deficits & mental status Attention: Poor Orientation: to self only Insight: Poor Judgment: Poor Objective Labs Result Diagrams: 10/29/17 14:06 10/29/17 Unknown Labs: Laboratory Results - last 24 hr 10/29/17 10/29/17 10/29/17 14:06 Unknown Unknown WBC 8.4 RBC 4.88 Hgb 16.2 Hct 46.4 MCV 95.1 MCH 33.1 MCHC 34.8 RDW 12.3 Plt Count 323 Neut % (Auto) 76.6 H Lymph % (Auto) 12.7 L [place] % (Auto) 9.3 Eos % (Auto) 1.2 L Baso % (Auto) 0.2 Neut # (Auto) 6400 H Sodium 141 Potassium 4.2 Chloride 99 Carbon Dioxide 29 BUN 16 Creatinine 0.70 Estimated GFR > 60.0 BUN/Creatinine Ratio 22.9 H Glucose 107 H Calcium 10.0 Phosphorus 4.1 Magnesium 2.4 H Total Bilirubin 0.7 AST 36 ALT 31 Alkaline Phosphatase 112 Ammonia < 9.0 L Total Protein 7.7 Albumin 4.6 Globulin 3.1 Albumin/Globulin Ratio 1.5 Assessment & Plan (1) Altered mental status: Qualifiers: Altered mental status type: unspecified Coma depth: Coma timing: Qualified Code(s): R41.82 - Altered mental status, unspecified Current visit: Yes Status: Acute Plan: Assessment/Plan Narrative: See this resume writer's 10/29/17 note for full assessment & recommendations. Brief summary: 57yoM with dementia, this provider consulted for significant agitation. No causative factor determined, suspect possible neurologic insult, underlying dementia, ongoing alochol use as contributing factors. He has responded somewhat to risperidone during hospital stay, and will plan to continue upon discharge which is anticipated for today. RECOMMENDATIONS: - continue thiamine PO 100mg daily - continue trazodone 50mg PO QHS, ok to repeat as needed for insomnia - Continue risperidone 2mg PO BID - Referral to neurology as an outpatient - Coordinate care with PCP, to discern whether regular f/u with this resume writer vs. PCP consultation is most appropriate - Patient will need new patient packet for Dr. Hickman?s clinic if needing to schedule outpatient visit. I have written outpatient prescriptions for: - Risperidone 2mg PO BID - Haldol 2mg PO q4h prn severe agitation not responding to other measures - Trazodone 50mg PO QHS, ok to repeat in 60 min as needed for insomnia - Compounded cream: Ativan 0.5mg, Benadryl 12.5mg, Haldol 0.5mg, 1g topical q2h prn agitation Time Spent With Patient Time with patient: less than 15 minutes
--- NOTE | 2017-10-30 11:15 | P.DS_ITS ---
History of Present Illness Chief complaint: found on ground, etoh on board Discharge Providers Date of admission: 10/15/17 12:09 Primary care physician: Jose Maria Calderon MD Consults: 10/13/17 19:22 Consult to Dietitian, Adult Routine Comment: Reason For Exam: ETOH 10/13/17 19:25 Consult to Physical Therapy Evaluate & Treat Comment: fall risk assessment Physician Instructions: Evaluate and Treat 10/16/17 10:10 Consult to Speech Therapy Evaluate & Treat Comment: Physician Instructions: Evaluate and treat 10/17/17 07:48 Consult to Physical Therapy Evaluate & Treat Comment: Physician Instructions: Evaluate and Treat 10/17/17 13:58 Consult to Physician Routine Comment: Consulting Provider: Alex Hickman Reason for consultation: psychosis Has provider been notified: Yes 10/19/17 11:06 Consult to Physical Therapy Evaluate & Treat Comment: Physician Instructions: Evaluate and Treat Discharge provider: Pedro Bonilla MD Summary Discharge Diagnosis: 1. Alcoholism with alcohol withdrawal syndrome on admission 2. 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 3 Risk to Fall. Hospital Course: Patient was admitted to the hospital with altered level of consciousness. Alcohol withdrawal protocol was provided initially during hospital course early. There are periods where patient was noted to be somewhat combative disagreeable oppositional. There was a concern patient had underlying psychotic psychiatric disorder which was not clearly understood. Dr. Hickman was consulted during hospital course. Medications such as Risperdal that he was taking prior to admission along with Haldol were continued. Patient was noted to be unstable and at risk to fall. His confusional state persisted during hospital course. Patient was assessed by [facility] staff. Recommendations were patient needed one-to-one sitter since he was at risk to fall and had poor judgment. Dr. Hickman will continue to follow patient outpatient setting. Dr. Calderon will be the primary care physician will follow the patient outpatient setting. Psychiatric meds were provided by Dr. Hickman by prescription if we continue which consist of the Haldol as needed along with the Risperdal twice daily and the trazodone at night. Status at Discharge Cognitive/behavioral status at discharge: Patient is cooperative and agreeable. Functional status at discharge: wheelchair bound Overall status at discharge: patient is not back to baseline Time Spent with Patient Greater than 30 minutes Exam Vital Signs (past 8 hours): - 10/30/17 09:38 10/30/17 10:03 Temperature 97.5 F L Pulse Rate 103 H Respiratory Rate 16 Blood Pressure 132/82 H Pulse Oximetry 95 100 Oxygen Delivery Method Room Air Oxygen Flow Rate 0 Narrative Exam Narrative: The patient is awake and alert in no apparent distress. She is pleasantly confused. He is oriented to self only. There is a continued delirium noted with the patient's attention is very limited. Cardiovascular regular rate and rhythm Respiratory clear to auscultation and no murmurs GI soft and nontender positive bowel sounds Neurologic no focal neurologic changes no significant tremor noted Objective Labs Result Diagrams: 10/29/17 14:06 10/29/17 Unknown Labs: Laboratory Results - last 24 hr 10/29/17 10/29/17 10/29/17 14:06 Unknown Unknown WBC 8.4 RBC 4.88 Hgb 16.2 Hct 46.4 MCV 95.1 MCH 33.1 MCHC 34.8 RDW 12.3 Plt Count 323 Neut % (Auto) 76.6 H Lymph % (Auto) 12.7 L Mcdonough % (Auto) 9.3 Eos % (Auto) 1.2 L Baso % (Auto) 0.2 Neut # (Auto) 6400 H Sodium 141 Potassium 4.2 Chloride 99 Carbon Dioxide 29 BUN 16 Creatinine 0.70 Estimated GFR > 60.0 BUN/Creatinine Ratio 22.9 H Glucose 107 H Calcium 10.0 Phosphorus 4.1 Magnesium 2.4 H Total Bilirubin 0.7 AST 36 ALT 31 Alkaline Phosphatase 112 Ammonia < 9.0 L Total Protein 7.7 Albumin 4.6 Globulin 3.1 Albumin/Globulin Ratio 1.5 Discharge Plan Discharge Plan Patient Disposition: Assisted Living Other facility: [facility] Under care of provider: Dr Hickman Transportation: Wheelchair I certify the postop hospital detention care is medically necessary on a continuing basis for any conditions for which he/ she received care during this hospitalization.: No The receiving facility has agreed to accept transfer and provide medical treatment.: Yes Discharge Med Rec/Prescriptions Discharge Orders: Discharge (Order); Ordered 10/30/17 Ordered By: Pedro Bonilla Provider Discharge Instructions Diet: Diet as Tolerated Liquid consistency: Normal/Thin Food texture: Regular Oxygen: Bradly not indicated for oxygen supplementation Special Rehabilitation Services Rehab type: Physical therapy and Occupational therapy Discharge Data Primary Care Provider: Jose Maria Calderon Attending Provider: Jose Maria Calderon Admit Date/Time: 10/15/17 12:09 Quality VTE Deep Vein Thrombosis/Pulmonary Embolism Present on Admission: No
--- NOTE | 2017-10-30 11:19 | PT.IPTN ---
Current Diagnoses Metabolic encephalopathy (10/15/17) Altered mental status, unspecified (10/15/17) Physical Therapy Treatment Note M2 PT-IP Current Condition Start: 10/14/17 10:21 Freq: Status: Active Protocol: Document 10/21/17 11:00 RCC (Rec: 10/21/17 11:33 RCC [id number]) Physical Therapy Current Condition Current Condition Evaluation Date 10/19/17 Treatment Diagnosis GLF; ETOH withdrawal; difficulty with walking Onset Date 10/15/17 Precautions Other Precautions falls; can be combative M3 PT-IP Subjective Start: 10/14/17 10:21 Freq: Status: Active Protocol: Document 10/30/17 11:18 AB (Rec: 10/30/17 11:19 AB [id number]) Subjective Physical Therapy Visit Type Notes per nursing: pt on hold. pt is discharging today.
[2017-10-30] MEDS: HALOPERIDOL 5 MG/ML VIAL IM (13:14)
[2017-10-30] MEDS: LORazepam 2 MG/ML SYRINGE 1 MG IM (13:52)
--- NOTE | 2017-10-30 15:00 | CM.DPC ---
DCP/continued: Reviewed chart. Spoke with Leonarda at [facility] this AM. She confirms that they can accept patient this afternoon. Orders and scripts completed by Dr. Hickman and Dr. Walsh. All faxed to [facility]. In addition, RN faxed scripts to [facility] per Leonarda's request. Patient requiring non-urgent BLS transport. data entry analyst/Bonnie will arrange through [facility] transport. Patient scheduled to be picked up today at approximately 2:00pm. Attempted to call pt's Mother/DPOA but vm box full. RN reports that patient's Mother and sister have arrived and ICU staff will provide them with update. P: D/C to [facility] today via non-urgent BLS transport. Family hiring caregivers through [facility] to assist in the evening hours. BALAJI Crook
--- NOTE | 2017-10-30 15:37 | CM.DPC ---
DCP/continued: Asked STEPHEN/Carisa to notify Stefania at [facility] of discharge today. BALAJI Crook
--- NOTE | 2018-01-11 15:36 | CM.SWNOTE ---
TC from Dr Quiros today requesting information about [facility] transportation. According to our conversation: Bradly has been at [facility] and continues to be a good candidate for geropsychiatric follow up but does not meet criteria to be detained for such treatment. Dr Quiros thinks she might have secured a psychiatric facility but unsure who to contact for [place] transportation. Provided her the [facility] contact of P# [phone]. BALAJI Bullard
== END 2017-10-30 14:31 | DRG 897 ==
LOC: ED 18:30 → ICU 18:39
PROVIDERS: Internal Medicine; Psychiatry & Neurology Psychiatry; Admitting Provider Internal Medicine; Emergency Provider Emergency Medicine; Family Provider Internal Medicine; PCP Internal Medicine; Visit Provider Internal Medicine
DX: F10.232 Alcohol dependence with withdrawal with perceptual disturbance (principal); E51.2 Wernicke's encephalopathy; F10.259 Alcohol dependence with alcohol-induced psychotic disorder, unspecified; G30.0 Alzheimer's disease with early onset; Y90.0 Blood alcohol level of less than 20 mg/100 ml; G31.09 Other frontotemporal neurocognitive disorder; K21.9 Gastro-esophageal reflux disease without esophagitis; Z87.891 Personal history of nicotine dependence; R40.2352 Coma scale, best motor response, localizes pain, at arrival to emergency department; R40.2132 Coma scale, eyes open, to sound, at arrival to emergency department; R40.2242 Coma scale, best verbal response, confused conversation, at arrival to emergency department; G47.00 Insomnia, unspecified
CPT/HCPCS: 36415; 36591; 70450; 70544; 70551; 73030; 80048; 80053; 80320; 80329; 82140; 82550; 82607; 82746; 83605; 83690; 83735; 84100; 84145; 84443; 85025; 85610; 85730; 87797; 90791; 92523; 93005; 96361; 96374; 96375; 97116; 97162; 97530; 99231; 99232; 99283; 99285; G0378; G0480; J1630; J1650; J2060